=== PATIENT | male | born 1935 | race Two or more races ===

== ENCOUNTER 2021-09-17 10:05 | Inpatient (IN) | payer MEDICARE, BC ==
--- NOTE | 2021-09-17 10:27 | ED ---
General Adult HPI - General Chief complaint: Dizziness Stated complaint: palpitations Time Seen by Provider: 09/17/21 10:09 Source: patient, EMS Mode of arrival: EMS Limitations: no limitations - History of Present Illness Initial comments: Dictation was produced using [employer] dictation software. please excuse any grammatical, word or spelling errors. Chief Complaint: 86-year-old male with no significant comorbidities presents to emergency department for abnormal EKG History of Present Illness: She is an 86-year-old male he was at the [facility] urgent care where he was evaluated for one day of dizziness. Patient had an EKG performed that showed potential heart block. He was bradycardic. He was sent here via EMS. Patient has past medical history of hypertension. He takes spironolactone. Patient presents here with his son. Son reports that today he got up and was reaching overhead for something when all of a sudden he became very dizzy. Denies any fall. Perhaps she was presyncopal. He went to the urgent care where he was found have a heart rate in the 30s. Patient denies any dizziness at the bedside. The ROS documented in this emergency department record has been reviewed and confirmed by me. Those systems with pertinent positive or negative responses have been documented in the HPI. All other systems are other negative and/or noncontributory. PHYSICAL EXAM: General Impression: Alert and oriented x3, not in acute distress HEENT: Normocephalic atraumatic, extra-ocular movements intact, pupils equal and reactive to light bilaterally, mucous membranes moist. Cardiovascular: Heart regular rate and rhythm Chest: Able to complete full sentences, no retractions, no tachypnea Abdomen: abdomen soft, non-tender, non-distended, no organomegaly Musculoskeletal: Pulses present and equal in all extremities, no peripheral edema Motor: no focal deficits noted Neurological: CN II-XII grossly intact, no focal motor or sensory deficits noted Skin: Intact with no visualized rashes Psych: Normal affect and mood ED course: 86-year-old male with minimal Jony's presents emergency department for bradycardia. Been dizzy since this morning. Vital signs upon arrival shows heart rate of 52, rest of vital signs within acceptable limits. EKG does not show any evidence of heart block. There does appear to be clearly discernible P waves. There does appear to be evidence of sinus arrhythmia. No signs of ischemia or infarction. EKG interpretation: Ventricular rate 62, sinus rhythm, OH interval 210, QS 98, QTC 421. No OH prolongation, no QTC prolongation, no ST or T-wave changes noted. Overall, this EKG is unremarkable Laboratory evaluation obtained found to be unremarkable. CBC, coag panel metabolic panel is unremarkable. Electrolytes are normal. Bone and is negative. Patient observed in emergency department for 1 hour 15 minutes. On the monitor patient did not have any episodes of bradycardia. Patient however would benefit from admission for further cardiac monitoring and cardiology evaluation. - Related Data Home Medications Medication Instructions Recorded Confirmed Unable To Assess [Unable to Assess] 03/21/14 03/21/14 Allergies Allergy/AdvReac Type Severity Reaction Status Date / Time No Known Allergies Allergy Verified 03/21/14 21:27 Review of Systems ROS Statement: Those systems with pertinent positive or pertinent negative responses have been documented in the HPI. ROS Other: All systems not noted in ROS Statement are negative. Past Medical History Past Medical History: Hypertension History of Any Multi-Drug Resistant Organisms: None Reported Past Surgical History: Hernia Repair Past Psychological History: No Psychological Hx Reported Past Alcohol Use History: None Reported Past Drug Use History: None Reported General Exam Limitations: no limitations Course Vital Signs 09/17/21 09/17/21 10:07 10:15 Temperature 97.5 F L Pulse Rate 52 L Respiratory 16 Rate Blood Pressure 124/83 O2 Sat by Pulse 98 Oximetry Medical Decision Making - Lab Data Result diagrams: 09/17/21 10:32 09/17/21 10:32 Lab Results 09/17/21 09/17/21 09/17/21 Range/Units 10:32 10:32 10:32 WBC 9.1 (3.8-10.6) k/uL RBC 4.04 L (4.30-5.90) m/uL Hgb 12.9 L (13.0-17.5) gm/dL Hct 38.6 L (39.0-53.0) % MCV 95.7 (80.0-100.0) fL MCH 32.0 (25.0-35.0) pg MCHC 33.4 (31.0-37.0) g/dL RDW 12.7 (11.5-15.5) % Plt Count 178 (150-450) k/uL MPV 7.6 Neutrophils % 93 % Lymphocytes % 4 % Monocytes % 3 % Eosinophils % 1 % Basophils % 0 % Neutrophils # 8.4 H (1.3-7.7) k/uL Lymphocytes # 0.3 L (1.0-4.8) k/uL Monocytes # 0.2 (0-1.0) k/uL Eosinophils # 0.1 (0-0.7) k/uL Basophils # 0.0 (0-0.2) k/uL PT 10.7 (9.0-12.0) sec INR 1.0 (<1.2) APTT 24.2 (22.0-30.0) sec Sodium 137 (137-145) mmol/L Potassium 4.5 (3.5-5.1) mmol/L Chloride 105 (98-107) mmol/L Carbon Dioxide 26 (22-30) mmol/L Anion Gap 6 mmol/L BUN 22 H (9-20) mg/dL Creatinine 1.13 (0.66-1.25) mg/dL Est GFR (CKD-EPI)AfAm 68 (>60 ml/min/1.73 sqM) Est GFR (CKD-EPI)NonAf 59 (>60 ml/min/1.73 sqM) Glucose 128 H (74-99) mg/dL Plasma Lactic Acid Shiva (0.7-2.0) mmol/L Calcium 8.7 (8.4-10.2) mg/dL Magnesium 1.9 (1.6-2.3) mg/dL Troponin I (0.000-0.034) ng/mL 09/17/21 09/17/21 Range/Units 10:32 10:32 WBC (3.8-10.6) k/uL RBC (4.30-5.90) m/uL Hgb (13.0-17.5) gm/dL Hct (39.0-53.0) % MCV (80.0-100.0) fL MCH (25.0-35.0) pg MCHC (31.0-37.0) g/dL RDW (11.5-15.5) % Plt Count (150-450) k/uL MPV Neutrophils % % Lymphocytes % % Monocytes % % Eosinophils % % Basophils % % Neutrophils # (1.3-7.7) k/uL Lymphocytes # (1.0-4.8) k/uL Monocytes # (0-1.0) k/uL Eosinophils # (0-0.7) k/uL Basophils # (0-0.2) k/uL PT (9.0-12.0) sec INR (<1.2) APTT (22.0-30.0) sec Sodium (137-145) mmol/L Potassium (3.5-5.1) mmol/L Chloride (98-107) mmol/L Carbon Dioxide (22-30) mmol/L Anion Gap mmol/L BUN (9-20) mg/dL Creatinine (0.66-1.25) mg/dL Est GFR (CKD-EPI)AfAm (>60 ml/min/1.73 sqM) Est GFR (CKD-EPI)NonAf (>60 ml/min/1.73 sqM) Glucose (74-99) mg/dL Plasma Lactic Acid Shiva 0.8 (0.7-2.0) mmol/L Calcium (8.4-10.2) mg/dL Magnesium (1.6-2.3) mg/dL Troponin I <0.012 (0.000-0.034) ng/mL Disposition Clinical Impression: Dysrhythmia Disposition: ADMITTED IP TO THIS [facility] Condition: Fair Referrals: Rojelio Zuniga MD [Primary Care Provider] - 1-2 days Decision Time: 11:23
[2021-09-17 10:47] LABS: Basophils % (A) 0 %; Eosinophils # (A) 0.1 k/uL (0-0.7); Eosinophils % (A) 1 %; HCT 38.6 % (39.0-53.0); HGB 12.9 gm/dL (13.0-17.5); Lymphocytes # (A) 0.3 k/uL (1.0-4.8); Lymphocytes % (A) 4 %; MCHC 33.4 g/dL (31.0-37.0); MCV 95.7 fL (80.0-100.0); Mean Platelet Volume 7.6; Monocytes # (A) 0.2 k/uL (0-1.0); Monocytes % (A) 3 %; Neutrophils # (A) 8.4 k/uL (1.3-7.7); Neutrophils % (A) 93 %; Platelet Count 178 k/uL (150-450); RBC 4.04 m/uL (4.30-5.90); RDW 12.7 % (11.5-15.5); WBC 9.1 k/uL (3.8-10.6)
[2021-09-17 10:56] LABS: Calcium 8.7 mg/dL (8.4-10.2); Magnesium 1.9 mg/dL (1.6-2.3); Potassium 4.5 mmol/L (3.5-5.1)
[2021-09-17 11:02] LABS: Partial Thromboplastin Time 24.2 sec (22.0-30.0); Prothrombin Time 10.7 sec (9.0-12.0)
--- NOTE | 2021-09-17 14:00 | P.HPIM ---
History of Present Illness This is a pleasant 86 years old male with past medical history of hypertension, not on medication. Patient presents because of dizziness started this morning without syncope or fall. Patient states that 4:00 in the morning he started feeling dizzy associated with sweating, dizziness and some headache and lightheadedness he denies chest pain or dyspnea No syncope, no change in urine or bowel habits, no dysuria. Also he fell on his right arm was some abrasion about 2 days ago. No evidence of cellulitis. Patient went to urgent care where his heart rate was down to 70s and was sent to the emergency room Currently heart rate is 52-62, rest of vitals are stable. He denies smoking, alcohol or illicit drugs Labs including CBC, INR, BMP, liver enzymes and troponin are unremarkable. EKG showing sinus rhythm at 62 with PVCs Patient was admitted with cardiology consultation Review of Systems CONSTITUTIONAL: No fever, no malaise, no fatigue. HEENT: No recent visual problems or hearing problems. Denied any sore throat. CARDIOVASCULAR: No orthopnea, PND, no palpitations, no syncope. PULMONARY: No shortness of breath, no cough, no hemoptysis. GASTROINTESTINAL: No diarrhea, no nausea, no vomiting, no abdominal pain. Normoactive bowel sounds. NEUROLOGICAL: No headaches, no weakness, no numbness. HEMATOLOGICAL: Denies any bleeding or petechiae. GENITOURINARY: Denies any burning micturition, frequency, or urgency. MUSCULOSKELETAL/RHEUMATOLOGICAL: Denies any joint pain, swelling, or any muscle pain. ENDOCRINE: Denies any polyuria or polydipsia. Past Medical History Past Medical History: Hypertension History of Any Multi-Drug Resistant Organisms: None Reported Past Surgical History: Hernia Repair Past Psychological History: No Psychological Hx Reported Past Alcohol Use History: None Reported Past Drug Use History: None Reported Medications and Allergies Home Medications Medication Instructions Recorded Confirmed Type Cephalexin [Keflex] 250 mg PO Q8HR 09/17/21 09/17/21 History Mupirocin 2% Oint [Bactroban 2% 1 applic TOPICAL BID 09/17/21 09/17/21 History Oint] Spironolactone 12.5 mg PO DAILY 09/17/21 09/17/21 History Allergies Allergy/AdvReac Type Severity Reaction Status Date / Time No Known Allergies Allergy Verified 09/17/21 12:50 Physical Exam Vitals: Vital Signs Temp Pulse Resp BP Pulse Ox 09/17/21 11:14 62 16 151/78 98 09/17/21 10:15 124/83 09/17/21 10:07 97.5 F L 52 L 16 98 Intake and Output 09/16/21 09/17/21 09/17/21 22:59 06:59 14:59 Other: Weight 63.503 kg GENERAL: The patient is alert and oriented x3, not in any acute distress. Well developed, well nourished. HEENT: Pupils are round and equally reacting to light. EOMI. No scleral icterus. No conjunctival pallor. Normocephalic, atraumatic. No pharyngeal erythema. No thyromegaly. CARDIOVASCULAR: S1 and S2 present. No murmurs, rubs, or gallops. PULMONARY: Chest is clear to auscultation, no wheezing or crackles. ABDOMEN: Soft, nontender, nondistended, normoactive bowel sounds. No palpable organomegaly. MUSCULOSKELETAL: No joint swelling or deformity. -EXTREMITIES: No cyanosis, clubbing, or pedal edema. Small abrasion of the right arm with surrounding goes. No evidence of cellulitis, no swelling or te nderness or warmth NEUROLOGICAL: Gross neurological examination did not reveal any focal deficits. SKIN: No rashes. No petechiae Results CBC & Chem 7: 09/17/21 10:32 09/17/21 10:32 Labs: Abnormal Lab Results - Last 24 Hours (Table) 09/17/21 09/17/21 Range/Units 10:32 10:32 RBC 4.04 L (4.30-5.90) m/uL Hgb 12.9 L (13.0-17.5) gm/dL Hct 38.6 L (39.0-53.0) % Neutrophils # 8.4 H (1.3-7.7) k/uL Lymphocytes # 0.3 L (1.0-4.8) k/uL BUN 22 H (9-20) mg/dL Glucose 128 H (74-99) mg/dL Assessment and Plan Assessment: Symptomatic bradycardia, sinus bradycardia Fall a few days ago with right forearm abrasion History of hypertension Plan: This is a pleasant 86 years old male who presents with dizziness and bradycardia Continue telemetry monitoring Check TSH and electrolytes Cardiology consult Echocardiogram DVT prophylaxis: Subcutaneous heparin GI Prophylaxis: Pepcid
[2021-09-17] MEDS: SPIRONOLACTONE 25 MG TAB PO SCH (15:42)
--- NOTE | 2021-09-17 15:42 | CA ---
Transthoracic Echo Report Name: Rojelio Dalton Age: 86 Gender: M : 1935 Exam Date: 09/17/2021 11:48 Exam Location: [facility] Ht (in): 68 Wt (lb): 140 Ordering Physician: Jeffy Tabares MD Attending/Referring Phys: Roll Over Press Operator Sridevi Valverde RDCS Procedure CPT: Indications: Rule out heart disease Cardiac Hx: Technical Quality: Good Contrast 1: Total Dose (mL): Contrast 2: Total Dose (mL): MEASUREMENTS (Male / Female) Normal Values 2D ECHO LV Diastolic Diameter PLAX 5.1 cm 4.2 - 5.9 / 3.9 - 5.3 cm LV Systolic Diameter PLAX 2.3 cm IVS Diastolic Thickness 0.9 cm 0.6 - 1.0 / 0.6 - 0.9 cm LVPW Diastolic Thickness 0.7 cm 0.6 - 1.0 / 0.6 - 0.9 cm LV Relative Wall Thickness 0.3 LA Volume 54.9 cm??? 18 - 58 / 22 - 52 cm??? M-MODE Aortic Root Diameter MM 3.6 cm LA Systolic Diameter MM 3.0 cm LA Ao Ratio MM 0.8 MV E Point Septal Separation 2.7 cm AV Cusp Separation MM 1.7 cm DOPPLER AV Peak Velocity 122.9 cm/s AV Peak Gradient 6.0 mmHg AI Peak Velocity 333.4 cm/s AI Peak Gradient 44.5 mmHg AI Pressure Half Time 1268.9 ms MV Area PHT 3.8 cm??? MR Peak Velocity 410.0 cm/s MR Peak Gradient 67.2 mmHg Mitral E Point Velocity 66.9 cm/s Mitral A Point Velocity 42.1 cm/s Mitral E to A Ratio 1.6 MV Deceleration Time 200.5 ms MV E' Velocity 6.9 cm/s Mitral E to MV E' Ratio 9.7 TR Peak Velocity 155.1 cm/s TR Peak Gradient 9.6 mmHg Right Ventricular Systolic Press 14.6 mmHg FINDINGS Left Ventricle Normal Left ventricular size, wall thickness, systolic function with no obvious regional wall motion abnormalities. Normal Left ventricular diastolic filling pattern. Left ventricular ejection fraction is estimated at 50-55_%. Arrythmia noted. Right Ventricle The right ventricle is normal in size and function. Right Atrium The right atrium is normal in size. Left Atrium The left atrium is normal in size. Mitral Valve Structurally normal mitral valve without significant stenosis or prolapse. There is mild mitral regurgitation. Mitral valve thickened. Aortic Valve Structurally normal aortic valve without significant sclerosis or stenosis. There is no aortic regurgitation. Tricuspid Valve Structurally normal tricuspid valve without significant stenosis. Pulmonary artery systolic pressure is normal. Mild tricuspid regurgitation. Pulmonic Valve Structurally normal pulmonic valve without significant stenosis. There is no pulmonic regurgitation. Pericardium Normal pericardium without effusion. Aorta Normal aortic root dimension. CONCLUSIONS #1. Normal left ventricular size, thickness and function. Ejection fraction about 55%. #2. Mild mitral and tricuspid regurgitation Previewed by: Dr. Leoncio Nicole MD (Electronically Signed) Final Date: 17 September 2021 15:41
[2021-09-17] MEDS: SODIUM CHLORIDE 0.9% 1,000 ML IV SCH (15:43)
[2021-09-17] MEDS: FAMOTIDINE 20 MG/2 ML VIAL IV SCH (21:00)
[2021-09-17] MEDS: BACITRACIN OINT 1 EACH PACKET TOPICAL SCH (21:01)
[2021-09-17] MEDS: HEPARIN SODIUM,PORCINE/PF 5,000 UNIT/0.5 ML SYRINGE SQ SCH (21:01)
[2021-09-18 05:41] LABS: Appearance,Urine Clear (Clear); Bilirubin,Urine Negative (Negative); Blood,Urine Small (Negative); Color,Urine Yellow; Glucose,Urine (UA) Negative (Negative); Hyaline Casts,Urine 1 /lpf (0-2); Ketones,Urine Negative (Negative); Leukocyte Esterase,Urine Negative (Negative); Nitrite,Urine Negative (Negative); Protein,Urine Negative (Negative); RBC,Urine 40 /hpf (0-5); Specific Gravity,Urine 1.012 (1.001-1.035); Urobilinogen,Urine <2.0 mg/dL (<2.0); WBC,Urine 1 /hpf (0-5)
[2021-09-18] MEDS: SPIRONOLACTONE 25 MG TAB PO SCH (08:22)
[2021-09-18] MEDS: FAMOTIDINE 20 MG/2 ML VIAL IV SCH (08:22)
[2021-09-18] MEDS: HEPARIN SODIUM,PORCINE/PF 5,000 UNIT/0.5 ML SYRINGE SQ SCH (08:23)
[2021-09-18] MEDS: BACITRACIN OINT 1 EACH PACKET TOPICAL SCH ×2 (08:23→20:22)
[2021-09-18] MEDS ORDERED: HEPARIN SODIUM 1,000 UN/ML (10ML VL) IV PRN (08:29)
[2021-09-18] MEDS ORDERED: HEPARIN SODIUM 1,000 UN/ML (10ML VL) IV ONE (08:29)
[2021-09-18] MEDS ORDERED: DILTIAZEM DRIP BOLUS FROM BAG 1 MG SOLN IV ONE (08:31)
--- NOTE | 2021-09-18 08:51 | P.CRDCN ---
History of Present Illness Consult date: 09/18/21 History of present illness: This is a 86-year-old gentleman with history of hypertension, was taken to the urgent care center by his son because of symptoms of dizziness. Apparently around 3:00 or 4:00 patient woke up and tried to reach for something who is had and became very dizzy. No complaints of any chest pain or shortness of breath. In the urgent care center. It was felt that patient was bradycardic and having some heart block. We don't have any paperwork to document it. Patient was brought into the emergency room where his EKG showed a sinus rhythm with frequent PVCs. Heart rate in the 50s and 60s. Patient seemed very agitated and confused. He is a frail and thin-looking with some erythema and ulceration of the feet. Doesn't appear to be in acute distress. In fact, patient went into atrial fibrillation this morning with heart rate in the 120s. We'll going to start him on IV Cardizem drip with 5 mg bolus and 5 mg drip. Get an echocardiogram and thyroid function studies. Initiate anticoagulation, heparin. Continue to watch for any Sigmund bradyarrhythmias. Further recommendations depend upon the clinical course. Patient will be a good candidate for any pacemaker insertion because of ulceration on the leg and possible infection Review of Systems As per the chart Past Medical History Past Medical History: Hypertension History of Any Multi-Drug Resistant Organisms: None Reported Past Surgical History: Hernia Repair Additional Past Surgical History / Comment(s): bilateral cataract surgery Past Anesthesia/Blood Transfusion Reactions: No Reported Reaction Past Psychological History: No Psychological Hx Reported Smoking Status: Former smoker Past Alcohol Use History: None Reported Past Drug Use History: None Reported Medications and Allergies Home Medications Medication Instructions Recorded Confirmed Type Cephalexin [Keflex] 250 mg PO Q8HR 09/17/21 09/17/21 History Mupirocin 2% Oint [Bactroban 2% 1 applic TOPICAL BID 09/17/21 09/17/21 History Oint] Spironolactone 12.5 mg PO DAILY 09/17/21 09/17/21 History Allergies Allergy/AdvReac Type Severity Reaction Status Date / Time No Known Allergies Allergy Verified 09/17/21 12:50 Physical Exam Vitals: Vital Signs Temp Pulse Pulse Resp BP BP Pulse Ox 09/18/21 04:00 97.5 F L 68 17 162/73 96 09/18/21 02:00 72 18 09/17/21 23:07 97.9 F 72 18 172/74 96 09/17/21 20:00 66 17 165/74 99 09/17/21 16:30 68 18 156/70 99 09/17/21 12:38 97.9 F 64 18 166/77 98 09/17/21 11:14 62 16 151/78 98 09/17/21 10:15 124/83 09/17/21 10:07 97.5 F L 52 L 16 98 Intake and Output 09/17/21 09/18/21 09/18/21 22:59 06:59 14:59 Intake Total 540 320 Output Total 5200 Balance 540 -4880 Intake: Intake, IV Titration 80 Amount Sodium Chloride 0.9% 1, 80 000 ml @ 20 mls/hr IV . Q24H MONTEZ Rx#:[id number] Oral 540 240 Output: Urine 5200 Straight 2600 Other: Voiding Method Toilet Toilet # Voids 2 2 GENERAL EXAM: Patient is alert and agitated and confused. HEENT: Normocephalic. N NECK: No masses, no nuchal rigidity. CHEST: No chest wall deformity. LUNGS: Equal air entry with no crackles or wheeze. HEART: S1 and S2 irregular and fast heart sounds ABDOMEN: No hepatosplenomegaly, normal bowel sounds, no guarding or rigidity. SKIN: No rashes CENTRAL NERVOUS SYSTEM: No focal deficits. EXTREMITIES: Areas of irritation and excoriation and cellulitis Results 09/17/21 10:32 09/17/21 10:32 Cardiac Enzymes 09/17/21 Range/Units 10:32 Troponin I <0.012 (0.000-0.034) ng/mL Coagulation 09/17/21 Range/Units 10:32 PT 10.7 (9.0-12.0) sec APTT 24.2 (22.0-30.0) sec CBC 09/17/21 Range/Units 10:32 WBC 9.1 (3.8-10.6) k/uL RBC 4.04 L (4.30-5.90) m/uL Hgb 12.9 L (13.0-17.5) gm/dL Hct 38.6 L (39.0-53.0) % Plt Count 178 (150-450) k/uL Comprehensive Metabolic Panel 09/17/21 Range/Units 10:32 Sodium 137 (137-145) mmol/L Potassium 4.5 (3.5-5.1) mmol/L Chloride 105 (98-107) mmol/L Carbon Dioxide 26 (22-30) mmol/L BUN 22 H (9-20) mg/dL Creatinine 1.13 (0.66-1.25) mg/dL Glucose 128 H (74-99) mg/dL Calcium 8.7 (8.4-10.2) mg/dL Current Medications Generic Name Dose Route Start Last Admin Trade Name Freq PRN Reason Stop Dose Admin Bacitracin 1 each 09/17/21 21:00 09/18/21 08:23 Bacitracin Oint 1 Each Packet TOPICAL 09/20/21 21:01 1 each BID MONTEZ Administration Protocol Famotidine 20 mg 09/17/21 21:00 09/18/21 08:22 Famotidine 20 Mg/2 Ml Vial IV 20 mg Q12HR MONTEZ Administration Heparin Sodium (Porcine) 0 unit 09/18/21 08:29 Heparin Sodium 1,000 Un/Ml (10ml Vl) IV PER PROTOCOL PRN Low PTT Protocol Sodium Chloride 1,000 mls @ 20 mls/hr 09/17/21 11:30 09/17/21 15:43 Saline 0.9% IV 20 mls/hr .Q24H MONTEZ Administration Heparin Sodium/Sodium Chloride 250 mls @ 7.62 mls/hr 09/18/21 08:30 25,000 unit/ Sodium Chloride IV .Q24H MONTEZ Protocol 12 UNITS/KG/HR Diltiazem HCl 125 mg/ Sodium 125 mls @ 5 mls/hr 09/18/21 08:45 Chloride IV .Q24H MONTEZ 5 MG/HR Naloxone HCl 0.2 mg 09/17/21 11:20 Naloxone 0.4 Mg/Ml 1 Ml Vial IV Q2M PRN Opioid Reversal Spironolactone 12.5 mg 09/17/21 14:15 09/18/21 08:22 Spironolactone 25 Mg Tab PO 12.5 mg DAILY MONTEZ Administration Intake and Output 09/17/21 09/18/21 09/18/21 22:59 06:59 14:59 Intake Total 540 320 Output Total 5200 Balance 540 -6540 Intake: Intake, IV Titration 80 Amount Sodium Chloride 0.9% 1, 80 000 ml @ 20 mls/hr IV . Q24H MONTEZ Rx#:[id number] Oral 540 240 Output: Urine 5200 Straight 2600 Other: Voiding Method Toilet Toilet # Voids 2 2 09/17/21 10:32 09/17/21 10:32 EKG Interpretations (text) Sinus rhythm with frequent PVCs Assessment and Plan (1) Dysrhythmia Current Visit: Yes Status: Acute Code(s): I49.9 - CARDIAC ARRHYTHMIA, UNSPECIFIED SNOMED Code(s): 104315511 (2) Atrial fibrillation with RVR Current Visit: Yes Status: Acute Code(s): I48.91 - UNSPECIFIED ATRIAL FIBRILLATION SNOMED Code(s): 566446531376965 (3) Frequent PVCs Current Visit: Yes Status: Acute Code(s): I49.3 - VENTRICULAR PREMATURE DEPOLARIZATION SNOMED Code(s): 35231096 (4) Essential hypertension Current Visit: Yes Status: Acute Code(s): I10 - ESSENTIAL (PRIMARY) HYPERTENSION SNOMED Code(s): 88514717 Plan: Start patient on IV Cardizem bolus and drip at 5 mg. Continue to monitor for any bradyarrhythmias. Thyroid function studies. Echocardiogram. Further recommendations depend upon the clinical course
[2021-09-18] MEDS: HEPARIN SOD,PORK IN 0.45% NACL 25,000 UNIT in 0.45% NACL 1 250ML.BAG IV SCH (09:53)
[2021-09-18] MEDS: DILTIAZEM 125 MG in SODIUM CHLORIDE 0.9% 100 ML IV SCH (10:07)
[2021-09-18 10:49] LABS: Basophils % (A) 0 %; Eosinophils % (A) 0 %; HCT 41.6 % (39.0-53.0); HGB 13.5 gm/dL (13.0-17.5); Lymphocytes # (A) 0.5 k/uL (1.0-4.8); Lymphocytes % (A) 4 %; MCHC 32.4 g/dL (31.0-37.0); MCV 95.6 fL (80.0-100.0); Mean Platelet Volume 7.6; Monocytes # (A) 0.8 k/uL (0-1.0); Monocytes % (A) 5 %; Neutrophils # (A) 13.3 k/uL (1.3-7.7); Neutrophils % (A) 90 %; Platelet Count 217 k/uL (150-450); RBC 4.35 m/uL (4.30-5.90); RDW 12.8 % (11.5-15.5); WBC 14.7 k/uL (3.8-10.6)
[2021-09-18 11:06] LABS: INR 1.1 (<1.2); Prothrombin Time 11.7 sec (9.0-12.0)
[2021-09-18] MEDS ORDERED: QUEtiapine 25 MG TAB PO PRN (11:10)
[2021-09-18] MEDS ORDERED: QUEtiapine 25 MG TAB PO STA (11:10)
[2021-09-18 11:14] LABS: Partial Thromboplastin Time >200.0 sec (22.0-30.0)
[2021-09-18] MEDS: HALOPERIDOL LACTATE 5 MG/ML 1 ML VIAL IVP PRN ×2 (13:47→20:20)
--- NOTE | 2021-09-18 20:17 | P.PN ---
Subjective This is a pleasant 86 years old male with past medical history of hypertension, not on medication. Patient presents because of dizziness started this morning without syncope or fall. Patient states that 4:00 in the morning he started feeling dizzy associated with sweating, dizziness and some headache and lightheadedness he denies chest pain or dyspnea No syncope, no change in urine or bowel habits, no dysuria. Also he fell on his right arm was some abrasion about 2 days ago. No evidence of cellulitis. Patient went to urgent care where his heart rate was down to 70s and was sent to the emergency room Currently heart rate is 52-62, rest of vitals are stable. He denies smoking, alcohol or illicit drugs Labs including CBC, INR, BMP, liver enzymes and troponin are unremarkable. EKG showing sinus rhythm at 62 with PVCs Patient was admitted with cardiology consultation 09/18/2021 Patient today was more confused and needed to be closely monitored, at first we given Seroquel but that did not, hum down so we have to give him Haldol when necessary, patient feels better. Because his heart rate was abnormal, bradycardia on admission. On developed A. fib and RVR cardiology starting him on heparin and Cardizem drip. Also he has evidence of cellulitis on his abrasions on both right forearm and right leg and patient was started on cefazolin Because of his agitation and confusion her CT of the brain which is pending now, could not be done earlier because of his agitation. His other labs are reviewed and he has leukocytosis of 14.7, rest of vitals looks stable and patient is afebrile. TSH a 3.3. Urinalysis is negative. Echocardiogram showed ejection fraction of 50-55%. Objective - Vital Signs Vital signs: Vital Signs Temp 98.5 F 09/18/21 16:00 Pulse 57 L 09/18/21 16:00 Resp 16 09/18/21 16:00 BP 158/73 09/18/21 16:00 Pulse Ox 100 09/18/21 16:00 FiO2 Intake & Output 09/18/21 09/18/21 09/19/21 06:59 18:59 06:59 Intake Total 320 535.499 Output Total 5200 2700 Balance -4880 -2164.501 Intake: Intake, IV Titration 80 55.499 Amount Heparin Sod,Pork in 0.45% 55.499 NaCl 25,000 unit In 0.45 % NaCl 1 250ml.bag @ 12 UNITS/KG/HR 7.62 mls/hr IV .Q24H [facility] Rx#: [id number] Sodium Chloride 0.9% 1, 80 000 ml @ 20 mls/hr IV . Q24H [facility] Rx#:[id number] Oral 240 480 Output: Urine 5200 2700 Straight 2600 Other: Voiding Method Toilet Indwelling Catheter # Voids 2 - Exam -GENERAL: The patient is awake but confused, follow commands x3, not in any acute distress. Well developed, well nourished. HEENT: Pupils are round and equally reacting to light. EOMI. No scleral icterus. No conjunctival pallor. Normocephalic, atraumatic. No pharyngeal erythema. No t hyromegaly. CARDIOVASCULAR: S1 and S2 present. No murmurs, rubs, or gallops. PULMONARY: Chest is clear to auscultation, no wheezing or crackles. ABDOMEN: Soft, nontender, nondistended, normoactive bowel sounds. No palpable organomegaly. MUSCULOSKELETAL: No joint swelling or deformity. -EXTREMITIES: No cyanosis, clubbing, or pedal edema. Right forearm and right leg abrasions with cellulitis NEUROLOGICAL: Gross neurological examination did not reveal any focal deficits. SKIN: No rashes. no petechiae. - Labs CBC & Chem 7: 09/18/21 10:20 09/17/21 10:32 Labs: Abnormal Lab Results - Last 24 Hours (Table) 09/18/21 09/18/21 09/18/21 Range/Units 04:30 10:20 10:20 WBC 14.7 H (3.8-10.6) k/uL Neutrophils # 13.3 H (1.3-7.7) k/uL Lymphocytes # 0.5 L (1.0-4.8) k/uL APTT >200.0 H* (22.0-30.0) sec Urine Blood Small H (Negative) Urine RBC 40 H (0-5) /hpf 09/18/21 Range/Units 15:58 WBC (3.8-10.6) k/uL Neutrophils # (1.3-7.7) k/uL Lymphocytes # (1.0-4.8) k/uL APTT 81.0 H (22.0-30.0) sec Urine Blood (Negative) Urine RBC (0-5) /hpf Assessment and Plan Assessment: A. fib with RVR Symptomatic bradycardia, sinus bradycardia right forearm and leg cellulitis Confusion most likely metabolic/toxic encephalopathy. Rule out intracranial lesion Fall a few days ago with right forearm abrasion History of hypertension Plan: This is a pleasant 86 years old male who presents with dizziness and bradycardia Continue telemetry monitoring Continue with heparin drip and Cardizem drip. Blockers [facility] Cardiology consult Start cefazolin and ordered wound culture Haldol when necessary for agitation DVT prophylaxis: heparin GI Prophylaxis: Pepcid Discussed with the daytime shift to increase the dose of Haldol if it doesn't work. During the evening bedside nurse patient still agitated so I instructed to increase the dose of Haldol to 1 mg as needed, and once patient is, we can send him for CAT scan of the brain. Also to do wound t culture Prognosis is guarded
[2021-09-18] MEDS: TAMSULOSIN 0.4 MG CAP.ER.24H PO SCH (20:32)
[2021-09-18] MEDS: SODIUM CHLORIDE 0.9% 1,000 ML IV SCH (20:33)
[2021-09-18] MEDS ORDERED: HALOPERIDOL LACTATE 5 MG/ML 1 ML VIAL IVP ONE (21:00)
[2021-09-19] MEDS ORDERED: HALOPERIDOL LACTATE 5 MG/ML 1 ML VIAL IVP PRN (01:17)
[2021-09-19] MEDS: HALOPERIDOL LACTATE 5 MG/ML 1 ML VIAL IVP PRN (01:23)
[2021-09-19] MEDS ORDERED: LORazepam 2 MG/ML INJ IV ONE (05:57)
[2021-09-19 06:13] LABS: Basophils % (A) 0 %; Eosinophils # (A) 0.1 k/uL (0-0.7); Eosinophils % (A) 1 %; HCT 37.8 % (39.0-53.0); HGB 12.8 gm/dL (13.0-17.5); Lymphocytes # (A) 0.5 k/uL (1.0-4.8); Lymphocytes % (A) 4 %; MCH 32.1 pg (25.0-35.0); MCHC 33.9 g/dL (31.0-37.0); MCV 94.9 fL (80.0-100.0); Mean Platelet Volume 7.3; Monocytes # (A) 0.6 k/uL (0-1.0); Monocytes % (A) 5 %; Neutrophils # (A) 9.4 k/uL (1.3-7.7); Neutrophils % (A) 87 %; Platelet Count 173 k/uL (150-450); RBC 3.99 m/uL (4.30-5.90); RDW 12.9 % (11.5-15.5); WBC 10.7 k/uL (3.8-10.6)
[2021-09-19 06:23] LABS: Partial Thromboplastin Time 39.4 sec (22.0-30.0); Prothrombin Time 11.2 sec (9.0-12.0)
[2021-09-19 06:39] LABS: Calcium 8.3 mg/dL (8.4-10.2); Magnesium 1.6 mg/dL (1.6-2.3); Potassium 4.2 mmol/L (3.5-5.1)
[2021-09-19] MEDS: SODIUM CHLORIDE 0.9% 1,000 ML IV SCH ×3 (09:09→16:14)
[2021-09-19] MEDS: DILTIAZEM 125 MG in SODIUM CHLORIDE 0.9% 100 ML IV SCH (10:10)
[2021-09-19] MEDS: HEPARIN SOD,PORK IN 0.45% NACL 25,000 UNIT in 0.45% NACL 1 250ML.BAG IV SCH (10:10)
[2021-09-19] MEDS: BACITRACIN OINT 1 EACH PACKET TOPICAL SCH (10:11)
[2021-09-19] MEDS: SPIRONOLACTONE 25 MG TAB PO SCH (10:11)
[2021-09-19] MEDS: FAMOTIDINE 20 MG TAB PO SCH (10:11)
--- NOTE | 2021-09-19 10:59 | US ---
EXAMINATION TYPE: US carotid duplex BILAT DATE OF EXAM: 09/19/2021 COMPARISON: NONE CLINICAL HISTORY: confusion. confusion EXAM MEASUREMENTS: RIGHT: Peak Systolic Velocity (PSV) cm/sec ----- Right CCA: 75.7 ----- Right ICA: 102.1 ----- Right ECA: 139.8 ICA/CCA ratio: 1.3 RIGHT: End Diastole cm/sec ----- Right CCA: 8.7 ----- Right ICA: 14.1 ----- Right ECA: 9.7 LEFT: Peak Systolic Velocity (PSV) cm/sec ----- Left CCA: 94.4 ----- Left ICA: 71.3 ----- Left ECA: 157.4 ICA/CCA ratio: 0.8 LEFT: End Diastole cm/sec ----- Left CCA: 12.9 ----- Left ICA: 13.1 ----- Left ECA: 7.7 VERTEBRALS (direction of flow): Right Vertebral: Antegrade Left Vertebral: Antegrade Rhythm: Arrhythmia Moderate plaque bilateral bifurcations. Increased velocities bilateral ECA's IMPRESSION: 1. Atheromatous plaquing without significant flow-limiting stenosis internal carotid arteries based o n velocities. 2. There may be some moderate stenosis of the external carotid arteries Criteria for Assigning % of Stenosis / Diameter reduction (Estimation based on the indirect measurements of the internal carotid artery velocities (ICA PSV). 1. Normal (no stenosis)=ICA PSV < 125 cm/s: ratio < 2.0: ICA EDV<40 cm/s. 2. Less than 50% stenosis=ICA PSV < 125 cm/s: ratio < 2.0: ICA EDV<40 cm/s. 3. 50 to 69% stenosis=ICA PSV of 125 to 230 cm/s: ration 2.0 ? 4.0: ICA EDV 40-100 cm/s. 4. Greater than 70% stenosis to near occlusion= ICA PSV > 230 cm/s: ratio > 4.0: ICA EDV > 100 cm/s. 5. Near occlusion= ICA PSV velocities may be low or undetectable: variable ratio and ICA EDV. 6. Total occlusion=unable to detect flow.
--- NOTE | 2021-09-19 12:08 | CT ---
EXAMINATION TYPE: CT brain wo con DATE OF EXAM: 09/19/2021 COMPARISON: None available HISTORY: confusion CT DLP: 1217.4 mGycm Automated exposure control for dose reduction was used. TECHNIQUE: CT scan of the brain is performed without IV contrast administration. FINDINGS: Suboptimal CT scan with artifactual images. Brain volume loss changes, likely age-related. Bilateral cerebral white matter hypodensities, likely representing chronic microvascular ischemic changes. Scattered arterial atherosclerotic calcification s. No acute intracranial hemorrhage. No gross acute cortical infarct. No midline shift or herniation. Un remarkable basal cisterns, sella and CP angles. No gross space-occupying lesion, vasogenic edema or m ass effect. Unremarkable orbits. Clear visualized paranasal sinuses and mastoid air cells. Unremarkable calvarial bones. Deviated bony nasal septum convex to the right side. IMPRESSION: No acute intracranial abnormality or gross space-occupying lesion by this nonenhanced CT scan. Chroni c findings as described above.
--- NOTE | 2021-09-19 12:52 | P.PN ---
Subjective Progress Note Date: 09/19/21 HISTORY OF PRESENT ILLNESS This is a pleasant 86 years old male with past medical history of hypertension, not on medication. Patient presents because of dizziness started this morning without syncope or fa ll. Patient states that 4:00 in the morning he started feeling dizzy associated with sweating, dizziness and some headache and lightheadedness he denies chest pain or dyspnea No syncope, no change in urine or bowel habits, no dysuria. Also he fell on his right arm was some abrasion about 2 days ago. No evidence of cellulitis. Patient went to urgent care where his heart rate was down to 70s and was sent to the emergency room Currently heart rate is 52-62, rest of vitals are stable. He denies smoking, alcohol or illicit drugs Labs including CBC, INR, BMP, liver enzymes and troponin are unremarkable. EKG showing sinus rhythm at 62 with PVCs Patient was admitted with cardiology consultation 09/18/2021 Patient today was more confused and needed to be closely monitored, at first we given Seroquel but that did not, hum down so we have to give him Haldol when necessary, patient feels better. Because his heart rate was abnormal, bradycardia on admission. On developed A. fib and RVR cardiology starting him on heparin and Cardizem drip. Also he has evidence of cellulitis on his abrasions on both right forearm and right leg and patient was started on cefazolin Because of his agitation and confusion her CT of the brain which is pending now, could not be done earlier because of his agitation. His other labs are reviewed and he has leukocytosis of 14.7, rest of vitals looks stable and patient is afebrile. TSH a 3.3. Urinalysis is negative. Echocardiogram showed ejection fraction of 50-55%. 09/19: Patient is more confused today, family members are at bedside. He has a Marmolejo catheter for urinary retention. Heparin was placed on hold due to hematuria. He is off Cardizem drip.repeat blood work reveals WBC 10.7, hemoglobin 12.8, platelet count 173. Chloride 108, CO2 25, BUN 23 creatinine 1.2. Urinalysis revealed small amount of blood but no sign of infection. CAT scan of the brain revealed no acute intracranial abnormality or gross space- occupying lesion. Carotid ultrasound revealed plaquing without significant flow limiting stenosis internal carotid arteries. Some moderate stenosis of the external carotid arteries. REVIEW OF SYSTEMS Constitutional: No fever, no chills, no night sweats. No weight change. No weakness, fatigue or lethargy. No daytime sleepiness. EENT: No headache. No blurred vision or double vision, no loss of vision. No loss of Hearing, no ringing in the ears, no dizziness. No nasal drainage or congestion. No epistaxis. No sore throat. Lungs: No shortness of breath, cough, no sputum production. No wheezing. Cardiovascular: No chest pain, no lower extremity edema. No palpitations. No paroxysmal nocturnal dyspnea. No orthopnea. No lightheadedness or dizziness. No syncopal episodes. Abdominal: No abdominal pain. No nausea, vomiting. No diarrhea. No constipation. No bloody or tarry stools. No loss of appetite. Genitourinary: No dysuria, increased frequency, urgency. No urinary retention. Musculoskeletal: No myalgias. No muscle weakness, no gait dysfunction, no frequent falls. No back pain. No neck pain. Integumentary: No wounds, no lesions. No rash or pruritus. No unusual bruising. No change in hair or nails. Neurologic: No aphasia. No facial droop. No change in mentation. No head injury. No headache. No paralysis. No paresthesia. Psychiatric: No depression. No anxiety. No mood swings. Endocrine: No abnormal blood sugars. No weight change. No excessive sweating or thirst. No cold intolerance. PHYSICAL EXAMINATION Gen: This is a thin cachectic 86-year-old male. He is resting in bed appears to be comfortable. HEENT: Head is atraumatic, normocephalic. Pupils equal, round. Sclerae is anicteric. NECK: Supple. No JVD. No lymphadenopathy. No thyromegaly. LUNGS: Clear to auscultation. No wheezes or rhonchi. No intercostal retractions. HEART: Irregular rate and rhythm. No murmur. ABDOMEN: Soft. Bowel sounds are present. No masses. No tenderness. EXTREMITIES: No pedal edema. No calf tenderness. NEUROLOGICAL: Patient is awake, alert and oriented to person. Cranial nerves 2 through 12 are grossly intact. ASSESSMENT AND PLAN 1. A. fib with RVR. Patient is off Cardizem drip and heparin drip. Continue cardiac monitoring. Anticoagulation per cardiology. 2. Symptomatic bradycardia, sinus bradycardia. Cardiology is following. 3. Lower extremity cellulitis. Continue Kefzol. 4. Metabolic encephalopathy. CAT scan negative for intracranial abnormality. 5. History of hypertension. Continue Aldactone 12.5 mg daily 6. Remote history of tobacco use. 7. Urinary retention requiring Marmolejo catheter. Continue Flomax 0.4 mg daily. 8. GI prophylaxis. Pepcid 9. DVT prophylaxis. SCDs and MONICA hose. DISCHARGE PLAN TBD. Impression and plan of care have been directed as dictated by the signing physician. Navya Caraballo nurse practitioner acting as scribe for signing physician. Objective - Vital Signs Vital signs: Vital Signs Temp 97.5 F L 09/19/21 04:00 Pulse 74 09/19/21 04:00 Resp 20 09/19/21 04:00 BP 130/66 09/19/21 04:00 Pulse Ox 99 09/19/21 04:00 FiO2 Intake & Output 09/18/21 09/19/21 09/19/21 18:59 06:59 18:59 Intake Total 535.499 285.302 118 Output Total 2700 1650 Balance -2164.501 -1364.698 118 Intake: Intake, IV Titration 55.499 165.302 Amount Diltiazem 125 mg In 80 Sodium Chloride 0.9% 100 ml @ 5 MG/HR 5 mls/hr IV .Q24H [facility] Rx#:[id number] Heparin Sod,Pork in 0.45% 55.499 85.302 NaCl 25,000 unit In 0.45 % NaCl 1 250ml.bag @ 12 UNITS/KG/HR 7.62 mls/hr IV .Q24H [facility] Rx#: [id number] Oral 480 120 118 Output: Urine 2700 1650 Other: Voiding Method Indwelling Catheter Indwelling Catheter - Labs CBC & Chem 7: 09/19/21 05:57 09/19/21 05:57 Labs: Abnormal Lab Results - Last 24 Hours (Table) 09/18/21 09/18/21 09/18/21 Range/Units 10:20 10:20 15:58 WBC 14.7 H (3.8-10.6) k/uL RBC (4.30-5.90) m/uL Hgb (13.0-17.5) gm/dL Hct (39.0-53.0) % Neutrophils # 13.3 H (1.3-7.7) k/uL Lymphocytes # 0.5 L (1.0-4.8) k/uL APTT >200.0 H* 81.0 H (22.0-30.0) sec Chloride (98-107) mmol/L BUN (9-20) mg/dL Glucose (74-99) mg/dL Calcium (8.4-10.2) mg/dL 09/18/21 09/19/21 09/19/21 Range/Units 22:58 05:57 05:57 WBC 10.7 H (3.8-10.6) k/uL RBC 3.99 L (4.30-5.90) m/uL Hgb 12.8 L (13.0-17.5) gm/dL Hct 37.8 L (39.0-53.0) % Neutrophils # 9.4 H (1.3-7.7) k/uL Lymphocytes # 0.5 L (1.0-4.8) k/uL APTT 42.6 H 39.4 H (22.0-30.0) sec Chloride (98-107) mmol/L BUN (9-20) mg/dL Glucose (74-99) mg/dL Calcium (8.4-10.2) mg/dL 09/19/21 Range/Units 05:57 WBC (3.8-10.6) k/uL RBC (4.30-5.90) m/uL Hgb (13.0-17.5) gm/dL Hct (39.0-53.0) % Neutrophils # (1.3-7.7) k/uL Lymphocytes # (1.0-4.8) k/uL APTT (22.0-30.0) sec Chloride 108 H (98-107) mmol/L BUN 23 H (9-20) mg/dL Glucose 123 H (74-99) mg/dL Calcium 8.3 L (8.4-10.2) mg/dL
--- NOTE | 2021-09-19 12:53 | P.PN ---
Subjective This is a 86-year-old male with a past medical history of hypertension. 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 We have been asked to see in consultation for bradycardia and atrial fibrillation with RVR. Patient was taken to the urgent care center by his son because of symptoms of dizziness. Apparently around 3:00 or 4:00 patient woke up and tried to reach for something who is had and became very dizzy. In the urgent care center. It was felt that patient was bradycardic and possible heart block, We don't have any paperwork to document it. Patient was brought into the emergency room where his EKG showed a sinus rhythm with frequent PVCs. Heart rate in the 50s and 60s. Patient was very agitated and confused on admission which is new per son. Patient was then found to be in atrial fibrillation with heart rate in the 120s. He was started on IV Cardizem and IV heparin drip. Echocardiogram revealed an EF of 5055%, mild tricuspid regurgitation TSH within normal limits Troponin negative Patient is seen and examined at bedside, he is alert, oriented x 2, appears lethargic, but able to answer questions appropriately. He denies any chest pain or shortness of breath. Has no complaints this morning. His vital signs are stable. Telemetry revealed sinus rhythm, PVCs and episodes of NSVT 2-3 beat runs. No further atrial fibrillation noted. No significant pauses noted. He is on IV heparin currently. GENERAL: Frail no acute distress NECK: Supple without JVD or thyromegaly. LUNGS: Breath sounds clear to auscultation bilaterally. Respiration equal and unlabored. No wheezes, rales or rhonchi. HEART: Regular rate and rhythm without murmurs, rubs or gallops. S1 and S2 heard. EXTREMITIES: Normal range of motion, no edema. No clubbing or cyanosis. Peripheral pulses intact. ASSESSMENT Dizziness New onset paroxysmal atrial fibrillation with RVR, [id number] score 3 Hypertension Leukocytosis PLAN Start Eliquis 2.5mg BID, case management consulted for coverage Start metoprolol tartrate 25mg BID Continue to monitor on telemetry for bradycardia At this time no indication for pacemaker implantation, will continue to monitor Further recommendations based on clinical course Nurse Practitioner note has been reviewed, I agree with a documented findings and plan of care. Patient was seen and examined. Objective - Vital Signs Vital signs: Vital Signs Temp 97.9 F 06/27/22 08:00 Pulse 59 L 09/19/21 08:00 Resp 18 09/19/21 08:00 BP 137/76 09/19/21 08:00 Pulse Ox 98 09/19/21 08:00 FiO2 Intake & Output 09/18/21 09/19/21 09/19/21 18:59 06:59 18:59 Intake Total 535.499 285.302 118 Output Total 2700 1650 Balance -2164.501 -1364.698 118 Intake: Intake, IV Titration 55.499 165.302 Amount Diltiazem 125 mg In 80 Sodium Chloride 0.9% 100 ml @ 5 MG/HR 5 mls/hr IV .Q24H [facility] Rx#:[id number] Heparin Sod,Pork in 0.45% 55.499 85.302 NaCl 25,000 unit In 0.45 % NaCl 1 250ml.bag @ 12 UNITS/KG/HR 7.62 mls/hr IV .Q24H [facility] Rx#: [id number] Oral 480 120 118 Output: Urine 2700 1650 Other: Voiding Method Indwelling Catheter Indwelling Catheter Indwelling Catheter - Labs CBC & Chem 7: 09/19/21 05:57 09/19/21 05:57 Labs: Abnormal Lab Results - Last 24 Hours (Table) 09/18/21 09/18/21 09/19/21 Range/Units 15:58 22:58 05:57 WBC 10.7 H (3.8-10.6) k/uL RBC 3.99 L (4.30-5.90) m/uL Hgb 12.8 L (13.0-17.5) gm/dL Hct 37.8 L (39.0-53.0) % Neutrophils # 9.4 H (1.3-7.7) k/uL Lymphocytes # 0.5 L (1.0-4.8) k/uL APTT 81.0 H 42.6 H (22.0-30.0) sec Chloride (98-107) mmol/L BUN (9-20) mg/dL Glucose (74-99) mg/dL Calcium (8.4-10.2) mg/dL 09/19/21 09/19/21 Range/Units 05:57 05:57 WBC (3.8-10.6) k/uL RBC (4.30-5.90) m/uL Hgb (13.0-17.5) gm/dL Hct (39.0-53.0) % Neutrophils # (1.3-7.7) k/uL Lymphocytes # (1.0-4.8) k/uL APTT 39.4 H (22.0-30.0) sec Chloride 108 H (98-107) mmol/L BUN 23 H (9-20) mg/dL Glucose 123 H (74-99) mg/dL Calcium 8.3 L (8.4-10.2) mg/dL Microbiology - Last 24 Hours (Table) 09/19/21 00:24 Anaerobic Culture - Preliminary Arm - Right 09/19/21 00:24 Wound Culture - Preliminary Arm - Right
[2021-09-19] MEDS: APIXABAN 2.5 MG TABLET PO SCH ×2 (13:02→21:55)
[2021-09-19] MEDS: METOPROLOL TARTRATE 25 MG TAB PO SCH ×2 (13:03→21:36)
--- NOTE | 2021-09-19 14:12 | P.CN ---
Psychiatric Consult - . Consult date: 09/19/21 Consult:: 09/19/21 14:03 IDENTIFYING DATA: This patient is a 86-year-old male who currently is lives with his and his son in the house. Retired. REASON FOR REFERRAL: Psychiatry was consulted for delirium HISTORY OF PRESENT ILLNESS: The patient presented to the hospital on 09/17 according to ER report for an abnormal ECG. Patient apparently went to the urgent care for dizziness and was found to have his heart rate in the 30s and was referred to the hospital. Patient had routine blood work and computed tomography scan which did not show any acute changes. Urinalysis showed blood in the urine. Negative for any infection. Patient was given diazepam and also Ativan and Seroquel. Patient became more confused and psychiatry was consulted. Patient's daughter was sitting beside him today and agreeable to speak to junior copywriter. Daughter states that he has been confused and had a sharp change in his mental status since Sunday. The patient was seen fidgeting and trying to get out of his mitten restraints. He acknowledges junior copywriter however had poor attention span. He was fairly confused during conversation. He did not know where he was and believes that he was in his own home. He does know his full name. He knows his date as well. He does not know today's date and believes that it was June. He also thought that his was sitting next to him. He is denying any depression or any anxiety today. At this time patient denies any suicidal or homical ideations, intent or plan. Patient denies any auditory, visual hallucinations and denies any paranoia or delusions. Patients admits to using no recreational drugs or cigarettes PAST PSYCHIATRIC HISTORY: Patient has no known psychiatric history. Patient denies being on any psychiatric medications. Patient denies any previous psychiatric hospitalizations. Patient denies any psychiatric outpatient follow- up. Patient denies any history of suicide attempts in the past. PAST MEDICAL HISTORY: as per medicine H and P ALLERGIES: as per EMR. CHEMICAL DEPENDENCY HISTORY: as per HPI. FAMILY PSYCHIATRIC/SUBSTANCE USE HISTORY: denies SOCIAL HISTORY: Patient was born and raised in [facility]. Patient apparently completed high school. 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 He currently lives his and his son and house. MENTAL STATUS EXAM: General Appearance: Patient appears to be thin, confused, stated age is alert, attending to cooperate [place] is confused. Patient appears to have fair hygiene and grooming wearing hospital gown with poor eye contact. Behavior: Patient is calmly lying in bed without any agitated behavior. Confused and distracted. Speech: Patient's speech is fluent and nonpressured. [place] Mood/Affect: Patient reports their mood is "ok", affect is congruent Suicidality/Homicidality: Patient denies having any suicidal or homicidal ideation intent or plan. Perceptions: Patient denies any visual hallucinations and denies any auditory hallucinations Though content/process: [place], positive content. Not endorsing any delusions. Memory and concentration: AOX1, does not know today's date or location. Poor concentration. Cannot spell "world" backwards. Judgment and insight: poor IMPRESSIONS: Delirium, likely secondary to medications including benzodiazepines PLAN: -At this time patient DOES NOT meet criteria for inpatient psychiatric admiss ion. -Delirium precautions recommended with patient including - avoiding use of narcotics and SITE AUDITOR sedatives, limit anticholinergic medications when possible, frequent re-orientation, minimize use of restraints, open window shades during the day and close them at night -Would recommend the following medication changes/additions: Please avoid anticholinergics and benzodiazepines as this will worsen patient's condition. Prolixin by mouth 1 mg twice a day for delirium/confusion. Prolixin by mouth and IM when necessary or agitation. Melatonin 2 mg daily at bedtime for sleep. -Attempted to call nurse however was unable to reach him. -Will continue to follow along -Please contact with any questions. 09/19/21 14:04 09/19/21 14:10
[2021-09-19] MEDS: TAMSULOSIN 0.4 MG CAP.ER.24H PO SCH (16:18)
[2021-09-19] MEDS ORDERED: MELATONIN 1 MG TAB PO SCH (21:00)
[2021-09-19] MEDS ORDERED: METOPROLOL TARTRATE 12.5 MG TAB PO ONE (21:37)
[2021-09-20 02:49] LABS: Glucose,Whole Blood 109 mg/dL (70-110)
[2021-09-20] MEDS: BACITRACIN OINT 1 EACH PACKET TOPICAL SCH ×2 (03:09→11:58)
--- NOTE | 2021-09-20 09:00 | P.PN ---
Subjective Progress Note Date: 09/20/21 PROGRESS NOTE The patient is an 86 old male who presented with episode of bradycardia, had atrial fibrillation with slow ventricular response and episode of sinus rhythm with frequent ventricular ectopic activity. He had significant bradycardia last night. He is awake answering questions, back in sinus mechanism. He feels fatigued. His computed tomography scan of the head showed no evidence of acute abnormality. PHYSICAL EXAMINATION: Blood pressure blood pressure 108/50 with a heart rate in the 60 LUNGS: Clear to auscultation HEART: Regular rate and rhythm, S1, S2. No S3. systolic murmur at the base ABDOMEN: Soft, nontender, no organomegaly EXTREMETIES: No edema LAB: Pending IMPRESSION: 1. Tachybradycardia syndrome with significant bradycardia 2. Paroxysmal atrial fibrillation, score of 3 3. History of hypertension 4. Change in mental status PLAN: I discussed with the patient and his family the findings. In view of the persistent bradycardia I have recommended to proceed with permanent pacemaker implantation. The rationale and the risks with discussed with him. Dr. Sanchez will proceed with the implant today. In the meantime we will continue present therapy. Objective - Vital Signs Vital signs: Vital Signs Temp 97.7 F 09/20/21 00:00 Pulse 40 L 09/20/21 03:00 Resp 14 09/20/21 03:00 BP 108/52 09/20/21 03:00 Pulse Ox 97 09/20/21 03:00 FiO2 Intake & Output 09/19/21 09/20/21 09/20/21 18:59 06:59 18:59 Intake Total 118 Output Total 650 Balance 118 -650 Intake: Oral 118 Output: Urine 650 Other: Voiding Method Indwelling Catheter Indwelling Catheter - Labs CBC & Chem 7: 09/19/21 05:57 09/19/21 05:57 Labs: Microbiology - Last 24 Hours (Table) 09/19/21 00:24 Gram Stain - Preliminary Arm - Right Wound Culture - Preliminary 09/18/21 22:58 Blood Culture - Preliminary Blood No Growth after 24 hours 09/19/21 00:24 Anaerobic Culture - Preliminary Arm - Right
[2021-09-20] MEDS: APIXABAN 2.5 MG TABLET PO SCH (09:57)
[2021-09-20] MEDS: METOPROLOL TARTRATE 25 MG TAB PO SCH (09:58)
[2021-09-20] MEDS: FAMOTIDINE 20 MG TAB PO SCH (09:59)
[2021-09-20] MEDS: SPIRONOLACTONE 25 MG TAB PO SCH (10:00)
[2021-09-20 10:23] LABS: Calcium 7.9 mg/dL (8.4-10.2); Potassium 3.5 mmol/L (3.5-5.1)
[2021-09-20] MEDS: SODIUM CHLORIDE 0.9% 1,000 ML IV SCH ×3 (11:34→11:47)
--- NOTE | 2021-09-20 11:40 | P.PN ---
Subjective Progress Note Date: 09/20/21 HISTORY OF PRESENT ILLNESS This is a pleasant 86 years old male with past medical history of hypertension, not on medication. Patient presents because of dizziness started this morning without syncope or fa ll. Patient states that 4:00 in the morning he started feeling dizzy associated with sweating, dizziness and some headache and lightheadedness he denies chest pain or dyspnea No syncope, no change in urine or bowel habits, no dysuria. Also he fell on his right arm was some abrasion about 2 days ago. No evidence of cellulitis. Patient went to urgent care where his heart rate was down to 70s and was sent to the emergency room Currently heart rate is 52-62, rest of vitals are stable. He denies smoking, alcohol or illicit drugs Labs including CBC, INR, BMP, liver enzymes and troponin are unremarkable. EKG showing sinus rhythm at 62 with PVCs Patient was admitted with cardiology consultation 09/18/2021 Patient today was more confused and needed to be closely monitored, at first we given Seroquel but that did not, hum down so we have to give him Haldol when necessary, patient feels better. Because his heart rate was abnormal, bradycardia on admission. On developed A. fib and RVR cardiology starting him on heparin and Cardizem drip. Also he has evidence of cellulitis on his abrasions on both right forearm and right leg and patient was started on cefazolin Because of his agitation and confusion her CT of the brain which is pending now, could not be done earlier because of his agitation. His other labs are reviewed and he has leukocytosis of 14.7, rest of vitals looks stable and patient is afebrile. TSH a 3.3. Urinalysis is negative. Echocardiogram showed ejection fraction of 50-55%. 09/19: Patient is more confused today, family members are at bedside. He has a Marmolejo catheter for urinary retention. Heparin was placed on hold due to hematuria. He is off Cardizem drip.repeat blood work reveals WBC 10.7, hemoglobin 12.8, platelet count 173. Chloride 108, CO2 25, BUN 23 creatinine 1.2. Urinalysis revealed small amount of blood but no sign of infection. CAT scan of the brain revealed no acute intracranial abnormality or gross space- occupying lesion. Carotid ultrasound revealed plaquing without significant flow limiting stenosis internal carotid arteries. Some moderate stenosis of the external carotid arteries. 09/20: Patient has developed hematuria again overnight. He cardiology is planning for pacemaker insertion today. Family have determined patient to be full CODE STATUS. Discussed discharge planning with the family and they are agreeable to [facility] for subacute rehab which will plan for the end of this week. Order placed with social work to follow-up. Heart rate mostly running in the 40s but did dip into the 30s, blood pressure 128/53, pulse ox 96% on room air, afebrile. Repeat blood work reveals chloride 110, BUN 27 creatinine 1.1. Blood sugar 102. Patient is also been seen by psychiatry for delirium secondary to medications including benzodiazepines. Recommendations are for delirium precautions and the following medication changes: Avoid anticholinergics and benzodiazepines. Prolixin 1 mg twice a day and as needed for agitation, m elatonin 2 mg daily at bedtime for sleep. REVIEW OF SYSTEMS Constitutional: No fever, no chills, no night sweats. No weight change. No weakness, fatigue or lethargy. No daytime sleepiness. EENT: No headache. No blurred vision or double vision, no loss of vision. No loss of Hearing, no ringing in the ears, no dizziness. No nasal drainage or congestion. No epistaxis. No sore throat. Lungs: No shortness of breath, cough, no sputum production. No wheezing. Cardiovascular: No chest pain, no lower extremity edema. No palpitations. No paroxysmal nocturnal dyspnea. No orthopnea. No lightheadedness or dizziness. No syncopal episodes. Abdominal: No abdominal pain. No nausea, vomiting. No diarrhea. No constipation. No bloody or tarry stools. No loss of appetite. Genitourinary: No dysuria, increased frequency, urgency. No urinary retention. Musculoskeletal: No myalgias. No muscle weakness, no gait dysfunction, no frequent falls. No back pain. No neck pain. Integumentary: No wounds, no lesions. No rash or pruritus. No unusual bruising. No change in hair or nails. Neurologic: No aphasia. No facial droop. No change in mentation. No head injury. No headache. No paralysis. No paresthesia. Psychiatric: No depression. No anxiety. No mood swings. Endocrine: No abnormal blood sugars. No weight change. No excessive sweating or thirst. No cold intolerance. PHYSICAL EXAMINATION Gen: This is a thin cachectic 86-year-old male. He is resting in bed appears to be comfortable. HEENT: Head is atraumatic, normocephalic. Pupils equal, round. Sclerae is anict ti. NECK: Supple. No JVD. No lymphadenopathy. No thyromegaly. LUNGS: Clear to auscultation. No wheezes or rhonchi. No intercostal retractions. HEART: Irregular rate and rhythm. No murmur. ABDOMEN: Soft. Bowel sounds are present. No masses. No tenderness. EXTREMITIES: No pedal edema. No calf tenderness. NEUROLOGICAL: Patient is awake, alert and oriented to person. Cranial nerves 2 through 12 are grossly intact. ASSESSMENT AND PLAN 1. A. fib with RVR. Patient is off Cardizem drip and heparin drip. Continue cardiac monitoring. Anticoagulation per cardiology. 2. Symptomatic bradycardia, sinus bradycardia. Cardiology is following with plan for pacemaker implantation today. 3. Lower extremity cellulitis. Continue Kefzol. 4. Metabolic encephalopathy. CAT scan negative for intracranial abnormality. 5. History of hypertension. Continue Aldactone 12.5 mg daily 6. Remote history of tobacco use. 7. Urinary retention requiring Marmolejo catheter. Continue Flomax 0.4 mg daily. 8. Hematuria. Monitor CBC. 9. GI prophylaxis. Pepcid 10. DVT prophylaxis. SCDs and MONICA hose. CODE STATUS: Full code DISCHARGE PLAN [facility] on or Sunday. Impression and plan of care have been directed as dictated by the signing physician. Navya Caraballo nurse practitioner acting as scribe for signing physician. Objective - Vital Signs Vital signs: Vital Signs Temp 97.7 F 09/20/21 00:00 Pulse 40 L 09/20/21 03:00 Resp 14 09/20/21 03:00 BP 108/52 09/20/21 03:00 Pulse Ox 97 09/20/21 03:00 FiO2 Intake & Output 09/19/21 09/20/21 09/20/21 18:59 06:59 18:59 Intake Total 118 Output Total 650 Balance 118 -650 Intake: Oral 118 Output: Urine 650 Other: Voiding Method Indwelling Catheter Indwelling Catheter - Labs CBC & Chem 7: 09/19/21 05:57 09/20/21 09:26 Labs: Microbiology - Last 24 Hours (Table) 09/19/21 00:24 Gram Stain - Preliminary Arm - Right Wound Culture - Preliminary 09/18/21 22:58 Blood Culture - Preliminary Blood No Growth after 24 hours 09/19/21 00:24 Anaerobic Culture - Preliminary Arm - Right
[2021-09-20] MEDS: FAMOTIDINE 20 MG/2 ML VIAL IV SCH (11:46)
[2021-09-20] MEDS ORDERED: ceFAZolin 1 GM in SODIUM CHLORIDE 0.9% IRRIG BTL 250 ML IRRIGATION PRN (13:30)
[2021-09-20] MEDS ORDERED: IV FLUID CONTINUATION 1,000 ML IV ONE (13:39)
[2021-09-20] MEDS ORDERED: SODIUM CHLORIDE 0.9% 500 ML 500 ML IV ONE (13:39)
--- NOTE | 2021-09-20 13:40 | P.PN ---
Progress Note - Text Progress Note Date: 09/20/21 Interval History: Patient was seen today for psychiatric follow up. Patient is being seen for d irina/confusion. His family was in the room today with him. They asked several questions about the medication. They state that he is doing better today in terms of his mental clarity and is more responsive. They also state that he is more oriented and knows where he is today. Patient was seen sleeping and was awoken by bond underwriter. Patient was attending to cooperate as best as he could and was fairly appropriate. He knows that he is in [facility] continues to believe that it is June 2021. He knows his own name and he couldn't identify everyone in the room fairly well. He was answering questions fairly appropriately. He is denying any depression today on anxiety. His concentration appears to be improving. He is going in for a pacemaker today with cardiology. He states that he slept fairly last night, fair appetite is wall. At this time patient denies any suicidal or homical ideations, intent or plan. Patient denies any auditory, visual hallucinations and denies any paranoia or delusions. Patient denies any side effects from the medications and has been compliant with meds. Mental Status Exam: General Appearance: Patient appears to be thin, confused, stated age is alert, attending to cooperate is confused. Patient appears to have fair hygiene and grooming wearing hospital gown with improving eye contact. Behavior: Patient is calmly lying in bed without any agitated behavior. Less confused today. Speech: Patient's speech is fluent and nonpressured. [place] Mood/Affect: Patient reports their mood is "ok", affect is congruent Suicidality/Homicidality: Patient denies having any suicidal or homicidal ideation intent or plan. Perceptions: Patient denies any visual hallucinations and denies any auditory hallucinations Though content/process: [place], poverty of content. Not endorsing any delusions. Memory and concentration: AOX2, does not know today's date, improving concentration, able to identify people in the room. Judgment and insight: Improving IMPRESSIONS: Delirium, likely secondary to medications including benzodiazepines Plan: -At this time patient DOES NOT meet criteria for inpatient psychiatric admission. -Delirium precautions recommended with patient including - avoiding use of narcotics and DELICATESSEN MANAGER sedatives, limit anticholinergic medications when possible, frequent re-orientation, minimize use of restraints, open window shades during the day and close them at night -Would recommend the following medication changes/additions: Please avoid anticholinergics and benzodiazepines as this will worsen patient's condition. decrease Prolixin by mouth 0.5 mg twice a day for delirium/confusion. Prolixin by mouth and IM when necessary or agitation. increase Melatonin 5 mg daily at bedtime for sleep. -Will continue to follow along tomorrow. Patient will be going to [facility] for rehab upon discharge. -Please contact with any questions.
[2021-09-20] MEDS ORDERED: VANCOMYCIN 1,000 MG in SODIUM CHLORIDE 0.9% 250 ML IVPB STA (13:47)
[2021-09-20] MEDS ORDERED: IOPAMIDOL-370 100ML BTL INJ ONE (14:05)
[2021-09-20] MEDS ORDERED: LIDOCAINE 1% INJ 10MG/ML (30 ML VIAL-PF) SQ ONE (15:01)
--- NOTE | 2021-09-20 15:59 | P.EPPROC ---
- EP Procedure Note Electrophysiology Procedure Note: Diagnosis Severe bradycardia/tachycardia bradycardia syndrome, symptomatic Procedure Single-chamber pacemaker implantation under local anesthesia Details Patient was brought to the EP lab in a fasting state. Written informed consent was obtained prior to the procedure. Conscious sedation provided by anesthesia team IV antibiotics administered. Local anesthesia administered. A 4 cm incision made in the pectoral area. Subfascial pocket made. Venous access obtained Venous sheaths placed. Leads placed in the right heart RV lead position in the RV apex. Passive lead, [employer] positioned in the RV apex Pacing threshold 0.5 V at 0.5 ms, R waves 7.7 mV and pacing impedance 730 ohms [employer] single-chamber pacemaker device: Single-chamber pacemaker device connected to the leads and placed in the subfascial pocket Patient tolerated the procedure well without acute complications
[2021-09-20] MEDS ORDERED: ACETAMINOPHEN TAB 325 MG TAB PO PRN (16:00)
[2021-09-20] MEDS ORDERED: ACETAMINOPHEN IV (For NPO) 1,000 MG in EMPTY BAG 1 BAG IVPB ONE (16:00)
[2021-09-20] MEDS: TAMSULOSIN 0.4 MG CAP.ER.24H PO SCH (18:24)
[2021-09-20] MEDS ORDERED: LORazepam 2 MG/ML INJ IV STA (18:47)
[2021-09-21] MEDS: BACITRACIN OINT 1 EACH PACKET TOPICAL SCH (00:30)
[2021-09-21] MEDS: MELATONIN 5 MG TABLET PO SCH ×2 (00:30→21:33)
[2021-09-21] MEDS: METOPROLOL TARTRATE 25 MG TAB PO SCH ×3 (00:31→22:12)
[2021-09-21] MEDS: APIXABAN 2.5 MG TABLET PO SCH ×3 (00:32→19:47)
[2021-09-21] MEDS: SODIUM CHLORIDE 0.9% 1,000 ML IV SCH ×2 (02:08→23:55)
--- NOTE | 2021-09-21 08:25 | XR ---
EXAMINATION TYPE: XR chest 1V portable DATE OF EXAM: 09/21/2021 COMPARISON: 03/21/2014 INDICATION: Lead placement check TECHNIQUE: Single frontal view of the chest is obtained. FINDINGS: The heart size is normal. The pulmonary vasculature is normal. The lungs are clear. No pneumothorax is evident. There is placement of a pacemaker with the tip directed toward the cardiac apex. IMPRESSION: 1. No acute pulmonary process.
[2021-09-21] MEDS: FAMOTIDINE 20 MG/2 ML VIAL IV SCH (08:41)
[2021-09-21] MEDS: SPIRONOLACTONE 25 MG TAB PO SCH (08:42)
[2021-09-21 09:43] LABS: Basophils % (A) 1 %; Eosinophils # (A) 0.1 k/uL (0-0.7); Eosinophils % (A) 1 %; HCT 39.8 % (39.0-53.0); HGB 12.7 gm/dL (13.0-17.5); Lymphocytes # (A) 0.4 k/uL (1.0-4.8); Lymphocytes % (A) 5 %; MCH 31.4 pg (25.0-35.0); MCV 98.3 fL (80.0-100.0); Mean Platelet Volume 7.9; Monocytes # (A) 0.4 k/uL (0-1.0); Monocytes % (A) 4 %; Neutrophils % (A) 88 %; Platelet Count 183 k/uL (150-450); RBC 4.05 m/uL (4.30-5.90); RDW 12.9 % (11.5-15.5); WBC 9.1 k/uL (3.8-10.6)
[2021-09-21 09:58] LABS: Calcium 7.9 mg/dL (8.4-10.2); Potassium 4.4 mmol/L (3.5-5.1); Total Bilirubin 0.5 mg/dL (0.2-1.3); Total Protein 4.9 g/dL (6.3-8.2)
--- NOTE | 2021-09-21 11:20 | P.PN ---
Subjective Progress Note Date: 09/21/21 HISTORY OF PRESENT ILLNESS This is a pleasant 86 years old male with past medical history of hypertension, not on medication. Patient presents because of dizziness started this morning without syncope or fa ll. Patient states that 4:00 in the morning he started feeling dizzy associated with sweating, dizziness and some headache and lightheadedness he denies chest pain or dyspnea No syncope, no change in urine or bowel habits, no dysuria. Also he fell on his right arm was some abrasion about 2 days ago. No evidence of cellulitis. Patient went to urgent care where his heart rate was down to 70s and was sent to the emergency room Currently heart rate is 52-62, rest of vitals are stable. He denies smoking, alcohol or illicit drugs Labs including CBC, INR, BMP, liver enzymes and troponin are unremarkable. EKG showing sinus rhythm at 62 with PVCs Patient was admitted with cardiology consultation 09/18/2021 Patient today was more confused and needed to be closely monitored, at first we given Seroquel but that did not, hum down so we have to give him Haldol when necessary, patient feels better. Because his heart rate was abnormal, bradycardia on admission. On developed A. fib and RVR cardiology starting him on heparin and Cardizem drip. Also he has evidence of cellulitis on his abrasions on both right forearm and right leg and patient was started on cefazolin Because of his agitation and confusion her CT of the brain which is pending now, could not be done earlier because of his agitation. His other labs are reviewed and he has leukocytosis of 14.7, rest of vitals looks stable and patient is afebrile. TSH a 3.3. Urinalysis is negative. Echocardiogram showed ejection fraction of 50-55%. 09/19: Patient is more confused today, family members are at bedside. He has a Marmolejo catheter for urinary retention. Heparin was placed on hold due to hematuria. He is off Cardizem drip.repeat blood work reveals WBC 10.7, hemoglobin 12.8, platelet count 173. Chloride 108, CO2 25, BUN 23 creatinine 1.2. Urinalysis revealed small amount of blood but no sign of infection. CAT scan of the brain revealed no acute intracranial abnormality or gross space- occupying lesion. Carotid ultrasound revealed plaquing without significant flow limiting stenosis internal carotid arteries. Some moderate stenosis of the external carotid arteries. 09/20: Patient has developed hematuria again overnight. He cardiology is planning for pacemaker insertion today. Family have determined patient to be full CODE STATUS. Discussed discharge planning with the family and they are agreeable to [facility] for subacute rehab which will plan for the end of this week. Order placed with social work to follow-up. Heart rate mostly running in the 40s but did dip into the 30s, blood pressure 128/53, pulse ox 96% on room air, afebrile. Repeat blood work reveals chloride 110, BUN 27 creatinine 1.1. Blood sugar 102. Patient is also been seen by psychiatry for delirium secondary to medications including benzodiazepines. Recommendations are for delirium precautions and the following medication changes: Avoid anticholinergics and benzodiazepines. Prolixin 1 mg twice a day and as needed for agitation, m elatonin 2 mg daily at bedtime for sleep. 09/21: Patient had worsening confusion last night and one dose of Ativan was given with improvement of his behavior. Patient's son Flaco spent the night in the room. Consult added for neurology. Patient is noted to have some coughing today with water but was able to take his medications earlier, speech therapy consult added. Patient is currently nothing by mouth per cardiology and nursing will follow-up with cardiology [employer] SALESPERSON regarding this. Patient has been afebrile, heart rate in the 50s, blood pressure 133/61, pulse ox 96% on room air. WBC 9.1, hemoglobin 12.7, platelets 183. Sodium 140, potassium 4.4, chloride 110, CO2 21, BUN 25 creatinine 1.07. Liver function tests were normal. Blood culture no growth at 48 hours and finalized. Wound culture from right arm reveals no growth at 48 hours repeat chest x-ray reveals no acute pulmonary process. Patient has been seen by psychiatry for delirium secondary to medications including benzodiazepines.. REVIEW OF SYSTEMS Constitutional: No fever, no chills, no night sweats. No weight change. generalized weakness, fatigue or lethargy. No daytime sleepiness. EENT: No headache. No blurred vision or double vision, no loss of vision. No loss of Hearing, no ringing in the ears, no dizziness. No nasal drainage or congestion. No epistaxis. No sore throat. Lungs: No shortness of breath, cough, no sputum production. No wheezing. Cardiovascular: No chest pain, no lower extremity edema. No palpitations. No paroxysmal nocturnal dyspnea. No orthopnea. No lightheadedness or dizziness. No syncopal episodes. Abdominal: No abdominal pain. No nausea, vomiting. No diarrhea. No const ipation. No bloody or tarry stools. No loss of appetite. Genitourinary: No dysuria, increased frequency, urgency. No urinary retention. Musculoskeletal: No myalgias. No muscle weakness, no gait dysfunction, no frequent falls. No back pain. No neck pain. Integumentary: No wounds, no lesions. No rash or pruritus. No unusual bruising. No change in hair or nails. Neurologic: No aphasia. No facial droop. noted change in mentation. No head injury. No headache. No paralysis. No paresthesia. Psychiatric: No depression. No anxiety. No mood swings. Endocrine: No abnormal blood sugars. No weight change. No excessive sweating or thirst. No cold intolerance. PHYSICAL EXAMINATION Gen: This is a thin cachectic 86-year-old male. He is resting in bed appears to be comfortable. patient's son is at bedside. HEENT: Head is atraumatic, normocephalic. Pupils equal, round. Sclerae is anicteric. NECK: Supple. No JVD. No lymphadenopathy. No thyromegaly. LUNGS: Clear to auscultation. No wheezes or rhonchi. No intercostal retractions. HEART: Irregular rate and rhythm. No murmur. ABDOMEN: Soft. Bowel sounds are present. No masses. No tenderness. EXTREMITIES: No pedal edema. No calf tenderness. NEUROLOGICAL: Patient is awake, alert and oriented to person. Cranial nerves 2 through 12 are grossly intact. ASSESSMENT AND PLAN 1. A. fib with RVR, Paroxysmal. Patient continued on eliquis 2.5 mg twice daily, Lopressor 25 mg twice daily. 2. 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 3. Lower extremity cellulitis. Continue Kefzol. 4. Metabolic encephalopathy/acute delirium. CAT scan negative for intracranial abnormality.Consult with neurology. Patient has been seen by psychiatry with recommendations for Prolixin 0.5 mg twice daily and 2 mg 3 times daily as needed, melatonin. 5. History of hypertension. Continue Aldactone 12.5 mg daily 6. Remote history of tobacco use. 7. Urinary retention requiring Marmolejo catheter. Continue Flomax 0.4 mg daily. 8. Hematuria. Monitor CBC. 9. GI prophylaxis. Pepcid 10. DVT prophylaxis. SCDs and MONICA hose. CODE STATUS: Full code DISCHARGE PLAN on or Sunday. Impression and plan of care have been directed as dictated by the signing physician. Navya Caraballo nurse practitioner acting as scribe for signing physician. Objective - Vital Signs Vital signs: Vital Signs Temp 97.5 F L 09/20/21 23:20 Pulse 54 L 09/21/21 04:00 Resp 15 09/21/21 02:10 BP 133/61 09/20/21 23:20 Pulse Ox 96 09/20/21 23:20 FiO2 Intake & Output 09/20/21 09/21/21 09/21/21 18:59 06:59 18:59 Intake Total 290 10 Output Total 650 300 Balance -360 -300 10 Intake: IV 290 10 Invasive Line 2 10 Output: Urine 650 300 Other: Voiding Method Indwelling Catheter Indwelling Catheter - Labs CBC & Chem 7: 09/21/21 09:04 09/21/21 09:04 Labs: Abnormal Lab Results - Last 24 Hours (Table) 09/20/21 Range/Units 09:26 Chloride 110 H (98-107) mmol/L BUN 27 H (9-20) mg/dL Glucose 102 H (74-99) mg/dL Calcium 7.9 L (8.4-10.2) mg/dL Microbiology - Last 24 Hours (Table) 09/18/21 22:58 Blood Culture - Preliminary Blood No Growth after 48 hours 09/19/21 00:24 Gram Stain - Preliminary Arm - Right Wound Culture - Preliminary
--- NOTE | 2021-09-21 12:51 | P.PN ---
Subjective This is a 86-year-old male with a past medical history of hypertension. He does not follow with a forestry extension specialist. We have been asked to see in consultation for bradycardia and atrial fibrillation with RVR. Patient was taken to the urgent care center by his son because of symptoms of dizziness. He was found to be bradycardic and then went into atrial fibrillation with heart rate in the 120s. He was started on IV Cardizem and IV heparin drip. Echocardiogram revealed an EF of 5055%, mild tricuspid regurgitation. Tachy-Bradycardia noted on telemetry and pacemaker was recommended On 09/20, patient underwent single chamber pacemaker implantation with Dr. Sanchez. Patient is seen and examined at bedside, he is alert, oriented x 2-3, appears lethargic, but able to answer questions appropriately. He denies any chest pain or shortness of breath. Has no complaints this morning. His vital signs are stable. Telemetry revealed sinus rhythm HR 50s, V paced beats noted. No further atrial fibrillation noted. Device was interrogated this morning, function normally, no acute findings. Chest x-ray reviewed. GENERAL: Frail no acute distress NECK: Supple without JVD or thyromegaly. LUNGS: Breath sounds clear to auscultation bilaterally. Respiration equal and unlabored. No wheezes, rales or rhonchi. HEART: Regular rate and rhythm without murmurs, rubs or gallops. S1 and S2 heard. EXTREMITIES: Normal range of motion, no edema. No clubbing or cyanosis. Peripheral pulses intact. ASSESSMENT Dizziness Tachybradycardia Syndrome Status post pacemaker implantation on 09/20 New onset paroxysmal atrial fibrillation with RVR, [id number] score 3 Hypertension Leukocytosis PLAN Device was interrogated this morning, function normally, no acute findings. Continue Eliquis 2.5mg BID, case management consulted for coverage Continue metoprolol tartrate 25mg BID and spironolactone From cardiology perspective, patient is stable. Follow up outpatient with Dr. Summers Nurse Practitioner note has been reviewed, I agree with a documented findings and plan of care. Patient was seen and examined. Objective - Vital Signs Vital signs: Vital Signs Temp 97.5 F L 09/20/21 23:20 Pulse 54 L 09/21/21 04:00 Resp 15 09/21/21 02:10 BP 133/61 09/20/21 23:20 Pulse Ox 96 09/20/21 23:20 FiO2 Intake & Output 09/20/21 09/21/21 09/21/21 18:59 06:59 18:59 Intake Total 290 10 Output Total 650 300 500 Balance -360 -300 -490 Intake: IV 290 10 Invasive Line 2 10 Output: Urine 650 300 500 Other: Voiding Method Indwelling Catheter Indwelling Catheter - Labs CBC & Chem 7: 09/21/21 09:04 09/21/21 09:04 Labs: Abnormal Lab Results - Last 24 Hours (Table) 09/21/21 09/21/21 Range/Units 09:04 09:04 RBC 4.05 L (4.30-5.90) m/uL Hgb 12.7 L (13.0-17.5) gm/dL Neutrophils # 8.0 H (1.3-7.7) k/uL Lymphocytes # 0.4 L (1.0-4.8) k/uL Chloride 110 H (98-107) mmol/L Carbon Dioxide 21 L (22-30) mmol/L BUN 25 H (9-20) mg/dL Calcium 7.9 L (8.4-10.2) mg/dL Total Protein 4.9 L (6.3-8.2) g/dL Albumin 3.0 L (3.5-5.0) g/dL Microbiology - Last 24 Hours (Table) 09/19/21 00:24 Anaerobic Culture - Preliminary Arm - Right 09/19/21 00:24 Gram Stain - Final Arm - Right Wound Culture - Final 09/18/21 22:58 Blood Culture - Preliminary Blood No Growth after 48 hours
--- NOTE | 2021-09-21 14:48 | P.PN ---
Progress Note - Text Progress Note Date: 09/21/21 Interval History: Patient was seen today for psychiatric follow up, patient's nurse states that patient was confused and agitated yesterday after coming back from his procedure. Patient received another dose of Ativan yesterday. Patient was seen today at the bedside with his family there. His daughter reports that patient is doing better today and has been happy with his progress. Patient appears to be more awake and communicating with the filing writer and more directable. He answered questions as best as he could. He remains mild confusion however was corrected and did not display any agitation or irritability. His attention appears to be improving. He is not reporting any depression or anxiety today. He does not know today's date or location however does know his name and his family members in the room. He was more logical and appropriate with his answers.His concentration appears to be improving. He states that he slept fairly last night, fair appetite is wall. At this time patient denies any suicidal or homical ideations, intent or plan. Patient denies any auditory, visual hallucinations and denies any paranoia or delusions. Patient denies any side effects from the medications and has been compliant with meds. Mental Status Exam: General Appearance: Patient appears to be thin, confused, stated age is alert, attending to cooperate, mildly confused. Patient appears to have fair hygiene and grooming wearing hospital gown with improving eye contact. Behavior: Patient is calmly lying in bed without any agitated behavior. Less confused today. Speech: Patient's speech is fluent and nonpressured. [place] Mood/Affect: Patient reports their mood is "ok", affect is congruent Suicidality/Homicidality: Patient denies having any suicidal or homicidal ideation intent or plan. Perceptions: Patient denies any visual hallucinations and denies any auditory hallucinations Though content/process: [place], poverty of content. Not endorsing any delusions. Memory and concentration: AOX1-2, does not know today's date, improving concentration, able to identify people in the room. Judgment and insight: Improving IMPRESSIONS: Delirium, likely secondary to medications including benzodiazepines Plan: -At this time patient DOES NOT meet criteria for inpatient psychiatric admission. -Delirium precautions recommended with patient including - avoiding use of narcotics and RADIAL DRILL PRESS OPERATOR sedatives, limit anticholinergic medications when possible, frequent re-orientation, minimize use of restraints, open window shades during the day and close them at night -Would recommend the following medication changes/additions: Please avoid anticholinergics and benzodiazepines as this will worsen patient's condition. Continue Prolixin by mouth 0.5 mg twice a day for delirium/confusion. Prolixin by mouth and IM when necessary or agitation. if patient does become combative and agitated then consider trying a dose of zyprexa prn either IM or PO 2.5 mg possibly to help instead of ativan/benzos. Melatonin 5 mg daily at bedtime for sleep. -At this time psychiatry will sign off. Patient will be going to [facility] for rehab upon discharge. -Please contact with any questions.
--- NOTE | 2021-09-21 16:49 | P.CNNES ---
History of Present Illness Consult date: 09/21/21 Requesting physician: Navya Caraballo Reason for Consult: Mental status changes History of Present Illness: Patient is an 86-year-old male, otherwise healthy came to the hospital by ambulance on 09/17/2021 for dizziness, nauseous. Patient woke up that morning with dizziness. He initially went to urgent care where he was ruled out for Covid, but was found to have bradycardia with heart rate running in the 30s. He was transferred to the hospital. Patient has been doing well until Sunday09/18/2021 when the family came, he was hallucinating, completely disoriented. The night prior when the family left on Sunday, he was not happy staying in the hospital but otherwise was coherent. On Sunday, he was hallucinating, trying to get out of bed, thought he was in a gas station, and thought was with childhood friend in a farm that he had been in the long past. He was going back to memories that has happened but were not in the present. He did not know family members, trying to pull all the lines. Patient was slightly better on Sunday, still trying to get out of bed, not like himself. He was able to tell his name and date of and the address. He was seen by psychiatrist, who felt it was delirium, and started him on Prolixin, discontinued Ativan. Today patient has improved, but still sometimes talk off. Today he said that he spent the night at the grocery store, thought the ps ychiatrist was his son-in-law. Patient's daughter states that he did eat breakfast, lunch. She believes that he is about 80-85% better. The psychiatrist has started him on Prolixin. Patient lives with his and son. Patient has never smoked, does not drink alcohol. No diabetes. Patient has no history of dementia. He still drives, goes to the grocery stores. Sometime he would repeat stories once in a while but not very frequently. Patient's daughter has no concerns of dementia. Her vitals at the scene was blood pressure 160/99 pulse rate 60, respirations 15, saturation 100% EKG shows first-degree AV block, blood sugar 170. CT brain revealed no acute intracranial abnormality or space occupying lesion. Chronic findings. I personally reviewed computed tomography scan of the head, agree with the findings, no acute process. The position of the head is not the best, but no acute process. Chest x-ray showed no acute cardiopulmonary disease. Patient's blood test shows normal CBC, CMP, UA. No signs of infection. Review of Systems Patient denies any headache, any problem with the vision. No numbness tingling focal weakness. No chest pain or abdominal pain. He has left shoulder pain from recent pacemaker surgery. All other 14 point review of system reviewed, unremarkable. Past Medical History Past Medical History: Hypertension History of Any Multi-Drug Resistant Organisms: None Reported Past Surgical History: Hernia Repair Additional Past Surgical History / Comment(s): bilateral cataract surgery Past Anesthesia/Blood Transfusion Reactions: No Reported Reaction Past Psychological History: No Psychological Hx Reported Smoking Status: Former smoker Past Alcohol Use History: None Reported Past Drug Use History: None Reported Medications and Allergies Home Medications Medication Instructions Recorded Confirmed Type Cephalexin [Keflex] 250 mg PO Q8HR 09/17/21 09/17/21 History Mupirocin 2% Oint [Bactroban 2% 1 applic TOPICAL BID 09/17/21 09/17/21 History Oint] Spironolactone 12.5 mg PO DAILY 09/17/21 09/17/21 History Apixaban [Eliquis] 2.5 mg PO BID 30 Days #60 tab 09/19/21 Rx Allergies Allergy/AdvReac Type Severity Reaction Status Date / Time No Known Allergies Allergy Verified 09/17/21 12:50 Physical Examination - Vital Signs Vital Signs: Vital Signs Temp Pulse Resp BP Pulse Ox 09/21/21 04:00 54 L 09/21/21 02:10 55 L 15 09/20/21 23:20 97.5 F L 55 L 15 133/61 96 09/20/21 21:25 53 L 15 09/20/21 21:20 97.6 F 53 L 15 158/71 96 09/20/21 16:33 97.3 F L 14 162/64 96 Intake and Output 09/20/21 09/21/21 09/21/21 22:59 06:59 14:59 Intake Total 10 Output Total 650 300 500 Balance -650 -300 -490 Intake: IV 10 Invasive Line 2 10 Output: Urine 650 300 500 Other: Voiding Method Indwelling Catheter Indwelling Catheter Patient is an elderly male, in no acute distress. Patient is alert awake. Patient states it is the month of June and the year is 2004. He knows he is in a medical building in [facility]. He thinks Mr. Granda is the current president. He knows name of the state capital [place]. Speech and language functions are normal. Patient can name and repeat very well. Attention, concentration intact and fund of knowledge is slightly limited. On cranial examination, pupils are round and reacting to light, visual reyes are full on confrontation, with no neglect on double simultaneous stimulation. His extraocular muscles are intact with no nystagmus. Face is symmetric, tongue protrudes to the midline. Palatal elevation and sensation normal, hearing is slightly decreased and shoulder shrug normal, facial sensation normal. Shoulder shrug normal. On muscle strength testing, there is no pronator drift and the strength is normal in arms and legs distally and proximally. Deep tendon reflexes are symmetric, 1+ in the upper limbs, 2 at the knees 1 ankles and his toes are pointing baseline upwards, but still downgoing bilaterally. Sensory to touch is equal with no neglect. Cerebellar function showed no ataxia for [id number] testing. No dysdiadochokinesia. Tone and bulk of muscles normal. Gait deferred. On general examination, there is no carotid bruit or murmur, S1-S2 audible. Abdomen is soft nontender. No organomegaly, bowel sounds present. Chest is clear. Peripheral pulses are present. No edema. Results - Laboratory Findings CBC and BMP: 09/21/21 09:04 09/21/21 09:04 Abnormal Lab Findings: Abnormal Labs 09/17/21 09/17/21 09/18/21 10:32 10:32 04:30 WBC RBC 4.04 L Hgb 12.9 L Hct 38.6 L Neutrophils # 8.4 H Lymphocytes # 0.3 L APTT Chloride Carbon Dioxide BUN 22 H Glucose 128 H Calcium Total Protein Albumin Urine Blood Small H Urine RBC 40 H 09/18/21 09/18/21 09/18/21 10:20 10:20 15:58 WBC 14.7 H RBC Hgb Hct Neutrophils # 13.3 H Lymphocytes # 0.5 L APTT >200.0 H* 81.0 H Chloride Carbon Dioxide BUN Glucose Calcium Total Protein Albumin Urine Blood Urine RBC 09/18/21 09/19/21 09/19/21 22:58 05:57 05:57 WBC 10.7 H RBC 3.99 L Hgb 12.8 L Hct 37.8 L Neutrophils # 9.4 H Lymphocytes # 0.5 L APTT 42.6 H 39.4 H Chloride Carbon Dioxide BUN Glucose Calcium Total Protein Albumin Urine Blood Urine RBC 09/19/21 09/20/21 09/21/21 05:57 09:26 09:04 WBC RBC Hgb Hct Neutrophils # Lymphocytes # APTT Chloride 108 H 110 H 110 H Carbon Dioxide 21 L BUN 23 H 27 H 25 H Glucose 123 H 102 H Calcium 8.3 L 7.9 L 7.9 L Total Protein 4.9 L Albumin 3.0 L Urine Blood Urine RBC 09/21/21 09:04 WBC RBC 4.05 L Hgb 12.7 L Hct Neutrophils # 8.0 H Lymphocytes # 0.4 L APTT Chloride Carbon Dioxide BUN Glucose Calcium Total Protein Albumin Urine Blood Urine RBC Assessment and Plan Assessment: * Delirium, unclear etiology. Perhaps related to medication versus hospital related. No obvious infectious source or metabolic/organ dysfunction identified yet. * Atrial fibrillation, started on eliquis * Bradycardia, status post pacemaker. * Hypertension Plan: * Patient's mentation is improving. Psychiatrist has seen the patient, and started on Prolixin. Hopefully delirium will resolve in the next day or so. * Avoid sedatives, hypnotics. * Carotid Doppler revealed atheromatous plaquing without significant flow limiting stenosis internal carotid arteries. Antegrade flow in both vertebral arteries. * 2-D echo revealed normal left-ventricular size, thickness and function. Ejection fraction about 55%. Mild mitral and tricuspid regurgitation. * Patient has newly diagnosed paroxysmal atrial fibrillation, started on Eliqios. * We will check B12, folate. * Initiated PT and OT consults. * No other neurological workup indicated. We will follow clinically. Thank you for the consult.
[2021-09-21] MEDS: TAMSULOSIN 0.4 MG CAP.ER.24H PO SCH (18:08)
[2021-09-22] MEDS: SPIRONOLACTONE 25 MG TAB PO SCH (09:46)
[2021-09-22] MEDS: METOPROLOL TARTRATE 25 MG TAB PO SCH ×2 (09:47→21:09)
[2021-09-22] MEDS: FAMOTIDINE 20 MG/2 ML VIAL IV SCH (09:47)
[2021-09-22] MEDS: APIXABAN 2.5 MG TABLET PO SCH ×2 (09:47→21:10)
--- NOTE | 2021-09-22 11:13 | P.PN ---
Subjective This is a 86-year-old male with a past medical history of hypertension. He does not follow with a ballet master/mistress. We have been asked to see in consultation for bradycardia and atrial fibrillation with RVR. Patient was taken to the urgent care center by his son because of symptoms of dizziness. He was found to be bradycardic and then went into atrial fibrillation with heart rate in the 120s. He was started on IV Cardizem and IV heparin drip. Echocardiogram revealed an EF of 5055%, mild tricuspid regurgitation. Tachy-Bradycardia noted on telemetry and pacemaker was recommended On 09/20, patient underwent single chamber pacemaker implantation with Dr. Sanchez. 09/22/2021 Patient is seen and examined at bedside, he is alert, oriented x1, to person, he does not know he is in the hospital. He is having increased agitation. Neurology has evaluated the patient He denies any chest pain or shortness of breath. His vital signs are stable. Telemetry revealed patient went into atrial fibrillation overnight, his heart rates are controlled. Device was interrogated this morning, function normally, no acute findings. CT brain repeated on 09/19 with no acute intracranial abnormality GENERAL: Frail no acute distress NECK: Supple without JVD or thyromegaly. LUNGS: Breath sounds clear to auscultation bilaterally. Respiration equal and unlabored. No wheezes, rales or rhonchi. HEART: Regular rate and rhythm without murmurs, rubs or gallops. S1 and S2 heard. EXTREMITIES: Normal range of motion, no edema. No clubbing or cyanosis. Peripheral pulses intact. ASSESSMENT Dizziness Tachybradycardia Syndrome Status post pacemaker implantation on 09/20 New onset paroxysmal atrial fibrillation with RVR, [id number] score 3 Hypertension Leukocytosis, resolved Alerted mental status, Agitation PLAN Device was interrogated, function normally, no acute findings. Continue Eliquis 2.5mg BIB Continue metoprolol tartrate 25mg BID and spironolactone From cardiology perspective, patient is stable status post pacemaker implantation Neurology and Psychiatry are following the patient for altered mental status, increased agitation and delirium. We will follow the patient as needed. Please reconsult if needed. Follow up with Dr. Summers outpatient. Nurse Practitioner note has been reviewed, I agree with a documented findings and plan of care. Patient was seen and examined. Objective - Vital Signs Vital signs: Vital Signs Temp 98 F 09/22/21 03:56 Pulse 72 09/22/21 03:56 Resp 18 09/22/21 03:56 BP 133/67 09/22/21 03:56 Pulse Ox 94 L 09/22/21 03:56 FiO2 Intake & Output 09/21/21 09/22/21 09/22/21 18:59 06:59 18:59 Intake Total 20 20 130 Output Total 500 615 Balance -480 -595 130 Intake: IV 20 20 10 Invasive Line 2 20 20 10 Oral 120 Output: Urine 500 615 Other: Voiding Method Indwelling Catheter Indwelling Catheter - Labs CBC & Chem 7: 09/21/21 09:04 09/21/21 09:04 Labs: Microbiology - Last 24 Hours (Table) 09/18/21 22:58 Blood Culture - Preliminary Blood No Growth after 72 hours 09/19/21 00:24 Anaerobic Culture - Preliminary Arm - Right 09/19/21 00:24 Gram Stain - Final Arm - Right Wound Culture - Final
--- NOTE | 2021-09-22 11:30 | P.PN ---
Subjective Progress Note Date: 09/22/21 HISTORY OF PRESENT ILLNESS This is a pleasant 86 years old male with past medical history of hypertension, not on medication. Patient presents because of dizziness started this morning without syncope or fa ll. Patient states that 4:00 in the morning he started feeling dizzy associated with sweating, dizziness and some headache and lightheadedness he denies chest pain or dyspnea No syncope, no change in urine or bowel habits, no dysuria. Also he fell on his right arm was some abrasion about 2 days ago. No evidence of cellulitis. Patient went to urgent care where his heart rate was down to 70s and was sent to the emergency room Currently heart rate is 52-62, rest of vitals are stable. He denies smoking, alcohol or illicit drugs Labs including CBC, INR, BMP, liver enzymes and troponin are unremarkable. EKG showing sinus rhythm at 62 with PVCs Patient was admitted with cardiology consultation 09/18/2021 Patient today was more confused and needed to be closely monitored, at first we given Seroquel but that did not, hum down so we have to give him Haldol when necessary, patient feels better. Because his heart rate was abnormal, bradycardia on admission. On developed A. fib and RVR cardiology starting him on heparin and Cardizem drip. Also he has evidence of cellulitis on his abrasions on both right forearm and right leg and patient was started on cefazolin Because of his agitation and confusion her CT of the brain which is pending now, could not be done earlier because of his agitation. His other labs are reviewed and he has leukocytosis of 14.7, rest of vitals looks stable and patient is afebrile. TSH a 3.3. Urinalysis is negative. Echocardiogram showed ejection fraction of 50-55%. 09/19: Patient is more confused today, family members are at bedside. He has a Marmolejo catheter for urinary retention. Heparin was placed on hold due to hematuria. He is off Cardizem drip.repeat blood work reveals WBC 10.7, hemoglobin 12.8, platelet count 173. Chloride 108, CO2 25, BUN 23 creatinine 1.2. Urinalysis revealed small amount of blood but no sign of infection. CAT scan of the brain revealed no acute intracranial abnormality or gross space- occupying lesion. Carotid ultrasound revealed plaquing without significant flow limiting stenosis internal carotid arteries. Some moderate stenosis of the external carotid arteries. 09/20: Patient has developed hematuria again overnight. He cardiology is planning for pacemaker insertion today. Family have determined patient to be full CODE STATUS. Discussed discharge planning with the family and they are agreeable to [facility] for subacute rehab which will plan for the end of this week. Order placed with social work to follow-up. Heart rate mostly running in the 40s but did dip into the 30s, blood pressure 128/53, pulse ox 96% on room air, afebrile. Repeat blood work reveals chloride 110, BUN 27 creatinine 1.1. Blood sugar 102. Patient is also been seen by psychiatry for delirium secondary to medications including benzodiazepines. Recommendations are for delirium precautions and the following medication changes: Avoid anticholinergics and benzodiazepines. Prolixin 1 mg twice a day and as needed for agitation, m elatonin 2 mg daily at bedtime for sleep. 09/21: Patient had worsening confusion last night and one dose of Ativan was given with improvement of his behavior. Patient's son Flaco spent the night in the room. Consult added for neurology. Patient is noted to have some coughing today with water but was able to take his medications earlier, speech therapy consult added. 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 Patient has been afebrile, heart rate in the 50s, blood pressure 133/61, pulse ox 96% on room air. WBC 9.1, hemoglobin 12.7, platelets 183. Sodium 140, potassium 4.4, chloride 110, CO2 21, BUN 25 creatinine 1.07. Liver function tests were normal. Blood culture no growth at 48 hours and finalized. Wound culture from right arm reveals no growth at 48 hours repeat chest x-ray reveals no acute pulmonary process. Patient has been seen by psychiatry for delirium secondary to medications including benzodiazepines.. 09/22: Patient's son and daughter are at bedside. Son states the patient had a rough night. This pacemaker has been interrogated with no acute findings. Cardiology recommends continuing eliquis and Lopressor, Aldactone and cleared for discharge. He remains with Marmolejo catheter in place which will plan to discontinue and do a voiding trial. He is continued on Flomax. Patient has been seen by neurology for delirium unclear etiology, perhaps related to medication versus hospital. Patient to be seen by PT and OT today. Vitamin B12 455, folate 19.6. Discussed discharge planning with the family members and patient may do best at home due to his underlying dementia and confusion. PT and OT to see the patient today. Right now [facility] home care is arranged. Anticipate discharge tomorrow. REVIEW OF SYSTEMS Constitutional: No fever, no chills, no night sweats. No weight change. generalized weakness, fatigue or lethargy. No daytime sleepiness. EENT: No headache. No blurred vision or double vision, no loss of vision. No loss of Hearing, no ringing in the ears, no dizziness. No nasal drainage or congestion. No epistaxis. No sore throat. Lungs: No shortness of breath, cough, no sputum production. No wheezing. Cardiovascular: No chest pain, no lower extremity edema. No palpitations. No paroxysmal nocturnal dyspnea. No orthopnea. No lightheadedness or dizziness. No syncopal episodes. Abdominal: No abdominal pain. No nausea, vomiting. No diarrhea. No cons tipation. No bloody or tarry stools. No loss of appetite. Genitourinary: No dysuria, increased frequency, urgency. No urinary retention. Musculoskeletal: No myalgias. No muscle weakness, no gait dysfunction, no frequent falls. No back pain. No neck pain. Integumentary: No wounds, no lesions. No rash or pruritus. No unusual bruising. No change in hair or nails. Neurologic: No aphasia. No facial droop. noted change in mentation. No head injury. No headache. No paralysis. No paresthesia. Psychiatric: No depression. No anxiety. No mood swings. Endocrine: No abnormal blood sugars. No weight change. No excessive sweating or thirst. No cold intolerance. PHYSICAL EXAMINATION Gen: This is a thin cachectic 86-year-old male. He is resting in bed appears to be comfortable. patient's son is at bedside. HEENT: Head is atraumatic, normocephalic. Pupils equal, round. Sclerae is anicteric. NECK: Supple. No JVD. No lymphadenopathy. No thyromegaly. LUNGS: Clear to auscultation. No wheezes or rhonchi. No intercostal retractions. HEART: Irregular rate and rhythm. No murmur. ABDOMEN: Soft. Bowel sounds are present. No masses. No tenderness. EXTREMITIES: No pedal edema. No calf tenderness. Left sided arm sling in place. NEUROLOGICAL: Patient is awake, alert and oriented to person. Cranial nerves 2 through 12 are grossly intact. ASSESSMENT AND PLAN 1. A. fib with RVR, Paroxysmal. Patient continued on eliquis 2.5 mg twice daily, Lopressor 25 mg twice daily. 2. 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 Status post interrogation with no acute findings. 3. Lower extremity cellulitis. Continue Kefzol. 4. Metabolic encephalopathy/acute delirium. CAT scan negative for intracranial abnormality.Consult with neurology appreciated. Patient has been seen by psychiatry with recommendations for Prolixin 0.5 mg twice daily and 2 mg 3 times daily as needed, melatonin. 5. History of hypertension. Continue Aldactone 12.5 mg daily 6. Remote history of tobacco use. 7. Urinary retention requiring Marmolejo catheter. Continue Flomax 0.4 mg daily. 8. Hematuria. Monitor CBC. 9. GI prophylaxis. Pepcid 10. DVT prophylaxis. SCDs and MONICA hose. CODE STATUS: Full code DISCHARGE PLAN Most likely home on Sunday with homecare. Impression and plan of care have been directed as dictated by the signing physician. Navya Caraballo nurse practitioner acting as scribe for signing physician. Objective - Vital Signs Vital signs: Vital Signs Temp 98 F 09/22/21 03:56 Pulse 72 09/22/21 03:56 Resp 18 09/22/21 03:56 BP 133/67 09/22/21 03:56 Pulse Ox 94 L 09/22/21 03:56 FiO2 Intake & Output 09/21/21 09/22/21 09/22/21 18:59 06:59 18:59 Intake Total 20 20 120 Output Total 500 615 Balance -480 -595 120 Intake: IV 20 20 Invasive Line 2 20 20 Oral 120 Output: Urine 500 615 Other: Voiding Method Indwelling Catheter Indwelling Catheter - Labs CBC & Chem 7: 09/21/21 09:04 09/21/21 09:04 Labs: Abnormal Lab Results - Last 24 Hours (Table) 09/21/21 09/21/21 Range/Units 09:04 09:04 RBC 4.05 L (4.30-5.90) m/uL Hgb 12.7 L (13.0-17.5) gm/dL Neutrophils # 8.0 H (1.3-7.7) k/uL Lymphocytes # 0.4 L (1.0-4.8) k/uL Chloride 110 H (98-107) mmol/L Carbon Dioxide 21 L (22-30) mmol/L BUN 25 H (9-20) mg/dL Calcium 7.9 L (8.4-10.2) mg/dL Total Protein 4.9 L (6.3-8.2) g/dL Albumin 3.0 L (3.5-5.0) g/dL Microbiology - Last 24 Hours (Table) 09/18/21 22:58 Blood Culture - Preliminary Blood No Growth after 72 hours 09/19/21 00:24 Anaerobic Culture - Preliminary Arm - Right 09/19/21 00:24 Gram Stain - Final Arm - Right Wound Culture - Final
[2021-09-22 13:45] VITALS: BMI 21.2
[2021-09-22] MEDS: TAMSULOSIN 0.4 MG CAP.ER.24H PO SCH (17:29)
[2021-09-22] MEDS: CYANOCOBALAMIN 500 MCG TAB PO SCH (21:10)
[2021-09-22] MEDS: MELATONIN 5 MG TABLET PO SCH (21:10)
[2021-09-22] MEDS: SODIUM CHLORIDE 0.9% 1,000 ML IV SCH (23:57)
[2021-09-23] MEDS: CYANOCOBALAMIN 500 MCG TAB PO SCH (09:28)
[2021-09-23] MEDS: SPIRONOLACTONE 25 MG TAB PO SCH (09:28)
[2021-09-23] MEDS: FAMOTIDINE 20 MG/2 ML VIAL IV SCH (09:28)
[2021-09-23] MEDS: APIXABAN 2.5 MG TABLET PO SCH ×2 (09:29→20:38)
[2021-09-23] MEDS: METOPROLOL TARTRATE 25 MG TAB PO SCH ×2 (09:29→20:38)
--- NOTE | 2021-09-23 10:59 | P.PN ---
Subjective Progress Note Date: 09/23/21 HISTORY OF PRESENT ILLNESS This is a pleasant 86 years old male with past medical history of hypertension, not on medication. Patient presents because of dizziness started this morning without syncope or fa ll. Patient states that 4:00 in the morning he started feeling dizzy associated with sweating, dizziness and some headache and lightheadedness he denies chest pain or dyspnea No syncope, no change in urine or bowel habits, no dysuria. Also he fell on his right arm was some abrasion about 2 days ago. No evidence of cellulitis. Patient went to urgent care where his heart rate was down to 70s and was sent to the emergency room Currently heart rate is 52-62, rest of vitals are stable. He denies smoking, alcohol or illicit drugs Labs including CBC, INR, BMP, liver enzymes and troponin are unremarkable. EKG showing sinus rhythm at 62 with PVCs Patient was admitted with cardiology consultation 09/18/2021 Patient today was more confused and needed to be closely monitored, at first we given Seroquel but that did not, hum down so we have to give him Haldol when necessary, patient feels better. Because his heart rate was abnormal, bradycardia on admission. On developed A. fib and RVR cardiology starting him on heparin and Cardizem drip. Also he has evidence of cellulitis on his abrasions on both right forearm and right leg and patient was started on cefazolin Because of his agitation and confusion her CT of the brain which is pending now, could not be done earlier because of his agitation. His other labs are reviewed and he has leukocytosis of 14.7, rest of vitals looks stable and patient is afebrile. TSH a 3.3. Urinalysis is negative. Echocardiogram showed ejection fraction of 50-55%. 09/19: Patient is more confused today, family members are at bedside. He has a Marmolejo catheter for urinary retention. Heparin was placed on hold due to hematuria. He is off Cardizem drip.repeat blood work reveals WBC 10.7, hemoglobin 12.8, platelet count 173. Chloride 108, CO2 25, BUN 23 creatinine 1.2. Urinalysis revealed small amount of blood but no sign of infection. CAT scan of the brain revealed no acute intracranial abnormality or gross space- occupying lesion. Carotid ultrasound revealed plaquing without significant flow limiting stenosis internal carotid arteries. Some moderate stenosis of the external carotid arteries. 09/20: Patient has developed hematuria again overnight. He cardiology is planning for pacemaker insertion today. Family have determined patient to be full CODE STATUS. Discussed discharge planning with the family and they are agreeable to [facility] for subacute rehab which will plan for the end of this week. Order placed with social work to follow-up. Heart rate mostly running in the 40s but did dip into the 30s, blood pressure 128/53, pulse ox 96% on room air, afebrile. Repeat blood work reveals chloride 110, BUN 27 creatinine 1.1. Blood sugar 102. Patient is also been seen by psychiatry for delirium secondary to medications including benzodiazepines. Recommendations are for delirium precautions and the following medication changes: Avoid anticholinergics and benzodiazepines. Prolixin 1 mg twice a day and as needed for agitation, m elatonin 2 mg daily at bedtime for sleep. 09/21: Patient had worsening confusion last night and one dose of Ativan was given with improvement of his behavior. Patient's son Flaco spent the night in the room. Consult added for neurology. Patient is noted to have some coughing today with water but was able to take his medications earlier, speech therapy consult added. 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 Patient has been afebrile, heart rate in the 50s, blood pressure 133/61, pulse ox 96% on room air. WBC 9.1, hemoglobin 12.7, platelets 183. Sodium 140, potassium 4.4, chloride 110, CO2 21, BUN 25 creatinine 1.07. Liver function tests were normal. Blood culture no growth at 48 hours and finalized. Wound culture from right arm reveals no growth at 48 hours repeat chest x-ray reveals no acute pulmonary process. Patient has been seen by psychiatry for delirium secondary to medications including benzodiazepines.. 09/22: Patient's son and daughter are at bedside. Son states the patient had a rough night. This pacemaker has been interrogated with no acute findings. Cardiology recommends continuing eliquis and Lopressor, Aldactone and cleared for discharge. He remains with Marmolejo catheter in place which will plan to discontinue and do a voiding trial. He is continued on Flomax. Patient has been seen by neurology for delirium unclear etiology, perhaps related to medication versus hospital. Patient to be seen by PT and OT today. Vitamin B12 455, folate 19.6. Discussed discharge planning with the family members and patient may do best at home due to his underlying dementia and confusion. PT and OT to see the patient today. Right now [facility] home care is arranged. Anticipate discharge tomorrow. 09/23: Marmolejo catheter was removed yesterday the patient is having retention, most likely will need Marmolejo replaced after next bladder scan. Patient was able to eat breakfast this morning. He has not been out of bed since he came in. PT and OT to work with him today. Due to extreme weakness, anticipate need for subacute rehab. Patient has been afebrile, heart rate 52, blood pressure 156 /69, pulse ox 94% on room air. REVIEW OF SYSTEMS Constitutional: No fever, no chills, no night sweats. No weight change. generalized weakness, +fatigue. + daytime sleepiness. EENT: No headache. No blurred vision or double vision, no loss of vision. No loss of Hearing, no ringing in the ears, no dizziness. No nasal drainage or congestion. No epistaxis. No sore throat. Lungs: No shortness of breath, cough, no sputum production. No wheezing. Cardiovascular: No chest pain, no lower extremity edema. No palpitations. No paroxysmal nocturnal dyspnea. No orthopnea. No lightheadedness or dizziness. No syncopal episodes. Abdominal: No abdominal pain. No nausea, vomiting. No diarrhea. No constipation. No bloody or tarry stools. No loss of appetite. Genitourinary: No dysuria, increased frequency, urgency. No urinary retention. Musculoskeletal: No myalgias. + muscle weakness, + gait dysfunction, no frequent falls. No back pain. No neck pain. Integumentary: No wounds, no lesions. No rash or pruritus. No unusual bruising. No change in hair or nails. Neurologic: No aphasia. No facial droop. noted change in mentation. No head injury. No headache. No paralysis. No paresthesia. Psychiatric: No depression. No anxiety. No mood swings. Endocrine: No abnormal blood sugars. No weight change. No excessive sweating or thirst. No cold intolerance. PHYSICAL EXAMINATION Gen: This is a thin cachectic 86-year-old male. He is resting in bed appears to be comfortable. patient's son and daughter are at bedside. HEENT: Head is atraumatic, normocephalic. Pupils equal, round. Sclerae is anicteric. NECK: Supple. No JVD. No lymphadenopathy. No thyromegaly. LUNGS: Clear to auscultation. No wheezes or rhonchi. No intercostal retractions. HEART: Irregular rate and rhythm. No murmur. ABDOMEN: Soft. Bowel sounds are present. No masses. No tenderness. EXTREMITIES: No pedal edema. No calf tenderness. Left sided arm sling in place. NEUROLOGICAL: Patient is awake, alert and oriented to person. Cranial nerves 2 through 12 are grossly intact. ASSESSMENT AND PLAN 1. A. fib with RVR, Paroxysmal. Patient continued on eliquis 2.5 mg twice daily, Lopressor 25 mg twice daily. 2. 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 Status post int errogation with no acute findings. 3. Lower extremity cellulitis. Continue Kefzol. 4. Metabolic encephalopathy/acute delirium. CAT scan negative for intracranial abnormality.Consult with neurology appreciated. Patient has been seen by psychiatry with recommendations for Prolixin 0.5 mg twice daily and 2 mg 3 times daily as needed, melatonin. 5. History of hypertension. Continue Aldactone 12.5 mg daily 6. Remote history of tobacco use. 7. Urinary retention requiring Marmolejo catheter. Continue Flomax 0.4 mg daily. 8. Hematuria. Monitor CBC. 9. Generalized weakness and debility. PT and OT consults. 10. GI prophylaxis. Pepcid 11. DVT prophylaxis. SCDs and MONICA hose. CODE STATUS: Full code DISCHARGE PLAN Most likely subacute rehab on Sunday. Impression and plan of care have been directed as dictated by the signing physician. Navya Caraballo nurse practitioner acting as scribe for signing physician. Objective - Vital Signs Vital signs: Vital Signs Temp 98.9 F 09/23/21 03:24 Pulse 57 L 09/23/21 03:24 Resp 16 09/23/21 03:24 BP 162/72 09/23/21 03:24 Pulse Ox 93 L 09/23/21 03:24 FiO2 Intake & Output 09/22/21 09/23/21 09/23/21 18:59 06:59 18:59 Intake Total 380 Output Total 1000 1550 Balance -620 -1550 Weight 63.503 kg Intake: IV 20 Invasive Line 2 20 Oral 360 Output: Urine 1000 1550 Straight 1075 Other: Voiding Method Indwelling Catheter Urinal - Labs CBC & Chem 7: 09/21/21 09:04 09/21/21 09:04 Labs: Microbiology - Last 24 Hours (Table) 09/18/21 22:58 Blood Culture - Preliminary Blood No Growth after 96 hours
--- NOTE | 2021-09-23 14:51 | P.PN ---
Subjective Progress Note Date: 09/22/21 Patient was seen for a follow-up. Patient is laying comfortably in the bed. Sometimes he is more rational, but still confused. He thinks that he is not retired, and his wants to pick him up from work. Patient is not able to go on a bedpan, his bladder is full. Patient offers no complaints. Objective - Vital Signs Vital signs: Vital Signs Temp 97.8 F 09/22/21 20:07 Pulse 56 L 09/22/21 20:07 Resp 14 09/22/21 20:07 BP 174/78 09/22/21 20:07 Pulse Ox 93 L 09/22/21 20:07 FiO2 Intake & Output 09/22/21 09/22/21 09/23/21 06:59 18:59 06:59 Intake Total 20 380 Output Total 615 1000 Balance -595 -620 Weight 63.503 kg Intake: IV 20 20 Invasive Line 2 20 20 Oral 360 Output: Urine 615 1000 Other: Voiding Method Indwelling Catheter Indwelling Catheter - Exam Patient is laying comfortably in the bed. Detail examination deferred. - Labs CBC & Chem 7: 09/21/21 09:04 09/21/21 09:04 Labs: Microbiology - Last 24 Hours (Table) 09/18/21 22:58 Blood Culture - Preliminary Blood No Growth after 72 hours Assessment and Plan Assessment: * Delirium, unclear etiology. Perhaps related to medication versus hospital psychosis. No obvious infectious source or metabolic/organ dysfunction iden tified yet. * Atrial fibrillation, started on eliquis * Bradycardia, status post pacemaker. * Hypertension Plan: * Patient's mentation is fluctuating, not clearly improving. Psychiatrist has seen the patient, and started on Prolixin. Hopefully delirium will resolve in the next day or so. * Avoid sedatives, hypnotics. * Carotid Doppler revealed atheromatous plaquing without significant flow limiting stenosis internal carotid arteries. Antegrade flow in both vertebral arteries. * 2-D echo revealed normal left-ventricular size, thickness and function. Ejection fraction about 55%. Mild mitral and tricuspid regurgitation. * Patient has newly diagnosed paroxysmal atrial fibrillation, started on Eliqios. * B12 is borderline 455. We will start B12 1000 g orally daily. Folic acid 19.6 normal. * Initiated PT and OT consults. * Follow clinically.
[2021-09-23] MEDS: flUPHENAZine 2.5 MG/ML (MDV) 10 ML VIAL IM PRN (17:31)
[2021-09-23] MEDS: TAMSULOSIN 0.4 MG CAP.ER.24H PO SCH (17:51)
[2021-09-23] MEDS: SODIUM CHLORIDE 0.9% 1,000 ML IV SCH (17:52)
[2021-09-23] MEDS: MELATONIN 5 MG TABLET PO SCH (20:38)
[2021-09-24] MEDS: APIXABAN 2.5 MG TABLET PO SCH ×2 (08:48→20:10)
[2021-09-24] MEDS: FAMOTIDINE 20 MG/2 ML VIAL IV SCH (08:49)
[2021-09-24] MEDS: CYANOCOBALAMIN 500 MCG TAB PO SCH (08:49)
[2021-09-24] MEDS: SPIRONOLACTONE 25 MG TAB PO SCH (08:49)
[2021-09-24] MEDS: METOPROLOL TARTRATE 25 MG TAB PO SCH ×2 (08:49→20:10)
--- NOTE | 2021-09-24 13:14 | P.PN ---
Subjective Progress Note Date: 09/23/21 Patient was seen for a follow-up. Patient's son was present today. Patient is laying comfortably in the bed. Sometimes he is more rational, but still confused. Patient states that "only trouble I have is with urination". Marmolejo's catheter was removed, but patient could not urinate. Therefore Foleys catheter was placed again. Patient's son states that he still gets confused, wants to get out of bed. Doesn't realize that he is in the hospital. He thinks he is in his home. Patient did get into the chair with the physical therapist. Telemetry monitoring showing sinus bradycardia in the 50s. Objective - Vital Signs Vital signs: Vital Signs Temp 97.7 F 09/23/21 11:45 Pulse 50 L 09/23/21 16:05 Resp 14 09/23/21 16:05 BP 131/53 09/23/21 16:05 Pulse Ox 97 09/23/21 16:05 FiO2 Intake & Output 09/22/21 09/23/21 09/23/21 18:59 06:59 18:59 Intake Total 380 1476 Output Total 1000 1550 700 Balance -620 -1550 776 Weight 63.503 kg Intake: IV 20 Invasive Line 2 20 Intake, IV Titration 650 Amount Sodium Chloride 0.9% 1, 550 000 ml @ 50 mls/hr IV . Q20H [facility] Rx#:[id number] ceFAZolin 2 gm In Sodium 100 Chloride 0.9% 50 ml @ 100 mls/hr IVPB Q8HR [facility] Rx# :[id number] Oral 360 826 Output: Urine 1000 1550 700 Straight 1075 Other: Voiding Method Indwelling Catheter Urinal Indwelling Catheter - Exam Patient is laying comfortably in the bed. Patient states it is June 2022, knows name of his son standing Mr. Covarrubias. He thinks he is in [facility] (with his children has graduated from). Patient states that he lives in [facility], although son states that he lives in [place]. Patient knows name of the current president Tonie.. Patient's pupils are equal, round and reacting, face is symmetric. Tongue protrudes the midline. Visual reyes are full on confrontation. On muscle strength testing, the strength is normal in the arms and legs. Sensations are equal. Cerebellar function shows no ataxia for isigdu-cm-symt testing. Abdomen soft, nontender. Chest is clear. - Labs CBC & Chem 7: 09/21/21 09:04 09/21/21 09:04 Labs: Microbiology - Last 24 Hours (Table) 09/19/21 00:24 Anaerobic Culture - Final Arm - Right 09/18/21 22:58 Blood Culture - Preliminary Blood No Growth after 96 hours Assessment and Plan Assessment: * Delirium, unclear etiology. Perhaps related to medication versus hospital psychosis. No obvious infectious source or metabolic/organ dysfunction ident ified yet. * New onset Atrial fibrillation, started on eliquis * Bradycardia, status post pacemaker. * Hypertension Plan: * Patient's mentation is fluctuating, slowly improving. Psychiatrist has seen the patient, and started on Prolixin. * Patient's son states that he does not have any prior history of dementia. Hopefully his delirium will resolve. Recommended patient's son to have patient follow up with a neurologist after discharge (once the delirium has resolved), to rule out underlying mild cognitive impairment. At present as he has no previous history of cognitive impairment, will hold off on cognitive enhancing medications. * Avoid sedatives, hypnotics. * Carotid Doppler revealed atheromatous plaquing without significant flow limiting stenosis internal carotid arteries. Antegrade flow in both vertebral arteries. * 2-D echo revealed normal left-ventricular size, thickness and function. Ejection fraction about 55%. Mild mitral and tricuspid regurgitation. * Patient has newly diagnosed paroxysmal atrial fibrillation, started on Eliqios. * B12 is borderline 455. We will start B12 1000 g orally daily. Folic acid 19.6 normal. * Initiated PT and OT consults. * DVT prophylaxis: Patient on Eliquis. * Patient probably will go to subacute rehab. * As there is no active neurological issue, we will sign off. Dr. Faraz Navarro will be available for neurology service starting from Sunday morning. Please call neurology if any concerns.
--- NOTE | 2021-09-24 15:44 | P.PN ---
Subjective Progress Note Date: 09/24/21 HISTORY OF PRESENT ILLNESS This is a pleasant 86 years old male with past medical history of hypertension, not on medication. Patient presents because of dizziness started this morning without syncope or f all. Patient states that 4:00 in the morning he started feeling dizzy associated with sweating, dizziness and some headache and lightheadedness he denies chest pain or dyspnea No syncope, no change in urine or bowel habits, no dysuria. Also he fell on his right arm was some abrasion about 2 days ago. No evidence of cellulitis. Patient went to urgent care where his heart rate was down to 70s and was sent to the emergency room Currently heart rate is 52-62, rest of vitals are stable. He denies smoking, alcohol or illicit drugs Labs including CBC, INR, BMP, liver enzymes and troponin are unremarkable. EKG showing sinus rhythm at 62 with PVCs Patient was admitted with cardiology consultation 09/18/2021 Patient today was more confused and needed to be closely monitored, at first we given Seroquel but that did not, hum down so we have to give him Haldol when necessary, patient feels better. Because his heart rate was abnormal, bradycardia on admission. On developed A. fib and RVR cardiology starting him on heparin and Cardizem drip. Also he has evidence of cellulitis on his abrasions on both right forearm and right leg and patient was started on cefazolin Because of his agitation and confusion her CT of the brain which is pending now, could not be done earlier because of his agitation. His other labs are reviewed and he has leukocytosis of 14.7, rest of vitals looks stable and patient is afebrile. TSH a 3.3. Urinalysis is negative. Echocardiogram showed ejection fraction of 50-55%. 09/19: Patient is more confused today, family members are at bedside. He has a Marmolejo catheter for urinary retention. Heparin was placed on hold due to hematuria. He is off Cardizem drip.repeat blood work reveals WBC 10.7, hemoglobin 12.8, platelet count 173. Chloride 108, CO2 25, BUN 23 creatinine 1.2. Urinalysis revealed small amount of blood but no sign of infection. CAT scan of the brain revealed no acute intracranial abnormality or gross space- occupying lesion. Carotid ultrasound revealed plaquing without significant flow limiting stenosis internal carotid arteries. Some moderate stenosis of the external carotid arteries. 09/20: Patient has developed hematuria again overnight. He cardiology is planning for pacemaker insertion today. Family have determined patient to be full CODE STATUS. Discussed discharge planning with the family and they are agreeable to [facility] for subacute rehab which will plan for the end of this week. Order placed with social work to follow-up. Heart rate mostly running in the 40s but did dip into the 30s, blood pressure 128/53, pulse ox 96% on room air, afebrile. Repeat blood work reveals chloride 110, BUN 27 creatinine 1.1. Blood sugar 102. Patient is also been seen by psychiatry for delirium secondary to medications including benzodiazepines. Recommendations are for delirium precautions and the following medication changes: Avoid anticholinergics and benzodiazepines. Prolixin 1 mg twice a day and as needed for agitation, melatonin 2 mg daily at bedtime for sleep. 09/21: Patient had worsening confusion last night and one dose of Ativan was given with improvement of his behavior. Patient's son Flaco spent the night in e room. Consult added for neurology. Patient is noted to have some coughing today with water but was able to take his medications earlier, speech therapy consult added. Patient is currently nothing by mouth per cardiology and nursing will follow-up with cardiology [employer] regarding this. Patient has been afebrile, heart rate in the 50s, blood pressure 133/61, pulse ox 96% on room air. WBC 9.1, hemoglobin 12.7, platelets 183. Sodium 140, potassium 4.4, chloride 110, CO2 21, BUN 25 creatinine 1.07. Liver function tests were normal. Blood culture no growth at 48 hours and finalized. Wound culture from right arm reveals no growth at 48 hours repeat chest x-ray reveals no acute pulmonary proc ess. Patient has been seen by psychiatry for delirium secondary to medications including benzodiazepines.. 09/22: Patient's son and daughter are at bedside. Son states the patient had a rough night. This pacemaker has been interrogated with no acute findings. Cardiology recommends continuing eliquis and Lopressor, Aldactone and cleared for discharge. He remains with Marmolejo catheter in place which will plan to discontinue and do a voiding trial. He is continued on Flomax. Patient has been seen by neurology for delirium unclear etiology, perhaps related to medication versus hospital. Patient to be seen by PT and OT today. Vitamin B12 455, folate 19.6. Discussed discharge planning with the family members and patient may do best at home due to his underlying dementia and confusion. PT and OT to see the patient today. Right now [facility] home care is arranged. Anticipate discharge tomorrow. 09/23: Marmolejo catheter was removed yesterday the patient is having retention, most likely will need Marmolejo replaced after next bladder scan. Patient was able to eat breakfast this morning. He has not been out of bed since he came in. PT and OT to work with him today. Due to extreme weakness, anticipate need for subacute rehab. Patient has been afebrile, heart rate 52, blood pressure 15 69, pulse ox 94% on room air. 09/24, inpatient stay day number #7 patient is doing much better, 1 person assist on therapy rather than 2 persons assist for cath in place, for urinary retention, daughter is at bedside, she has some confusion and is still not sleeping, however he can be redirected, the daughter thinks that she might do well at home rather than the half-way, and has, members to assist 24 7, 2 people if needed. Telemetry monitoring will be discontinued today, melatonin increased to 10 mg, sitter hygiene recommended psych following, on chronic seen 0.5 mg twice a day, still on IV cefazolin and cultures, final negative growth, UA is negative, cellulitis on the arms, has improved we will switch to oral Keflex 500 mg 3 times a day, for the cellulitis. Therapy actively working with the patient, and patient's participating, no lightheadedness no dizziness, vitals are stable heart rate is in the 50s low as 48, has a pacemaker creatinine, 1.07 improved REVIEW OF SYSTEMS Constitutional: No fever, no chills, no night sweats. No weight change. generalized weakness, +fatigue. + daytime sleepiness. EENT: No headache. No blurred vision or double vision, no loss of vision. No loss of Hearing, no ringing in the ears, no dizziness. No nasal drainage or congestion. No epistaxis. No sore throat. Lungs: No shortness of breath, cough, no sputum production. No wheezing. Cardiovascular: No chest pain, no lower extremity edema. No palpitations. No paroxysmal nocturnal dyspnea. No orthopnea. No lightheadedness or dizziness. No syncopal episodes. Abdominal: No abdominal pain. No nausea, vomiting. No diarrhea. No constipation. No bloody or tarry stools. No loss of appetite. Genitourinary: No dysuria, increased frequency, urgency. No urinary retention. Musculoskeletal: No myalgias. + muscle weakness, + gait dysfunction, no frequent falls. No back pain. No neck pain. Integumentary: No wounds, no lesions. No rash or pruritus. No unusual bruising. No change in hair or nails. Neurologic: No aphasia. No facial droop. noted change in mentation. No head injury. No headache. No paralysis. No paresthesia. Psychiatric: No depression. No anxiety. No mood swings. Endocrine: No abnormal blood sugars. No weight change. No excessive sweating or thirst. No cold intolerance. PHYSICAL EXAMINATION Gen: This is a thin cachectic 86-year-old male. He is resting in bed appears to be comfortable. patient's son and daughter are at bedside. HEENT: Head is atraumatic, normocephalic. Pupils equal, round. Sclerae is anicteric. NECK: Supple. No JVD. No lymphadenopathy. No thyromegaly. LUNGS: Clear to auscultation. No wheezes or rhonchi. No intercostal retractions. HEART: Irregular rate and rhythm. No murmur. ABDOMEN: Soft. Bowel sounds are present. No masses. No tenderness. EXTREMITIES: No pedal edema. No calf tenderness. Left sided arm sling in place. NEUROLOGICAL: Patient is awake, alert and oriented to person. Cranial nerves 2 through 12 are grossly intact. ASSESSMENT AND PLAN 1. A. fib with RVR, Paroxysmal. Patient continued on eliquis 2.5 mg twice daily, Lopressor 25 mg twice daily. 2. 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 Status post interrogation with no acute findings. 3. Lower extremity cellulitis. Continue Kefzol. Switch to oral Keflex 4. Metabolic encephalopathy/acute delirium. CAT scan negative for intracranial abnormality.Consult with neurology appreciated. Patient has been seen by psychiatry with recommendations for Prolixin 0.5 mg twice daily and 2 mg 3 times daily as needed, melatonin. 5. History of hypertension. Continue Aldactone 12.5 mg daily 6. Remote history of tobacco use. 7. Urinary retention requiring Marmolejo catheter. Continue Flomax 0.4 mg daily. 8. Hematuria. Monitor CBC. 9. Generalized weakness and debility. PT and OT consults. 10. GI prophylaxis. Pepcid 11. DVT prophylaxis. SCDs and MONICA radhae. CODE STATUS: Full code DISCHARGE PLAN [facility] with [facility] on Sunday Active Medications Acetaminophen (Acetaminophen Tab 325 Mg Tab) 650 mg PO Q6HR PRN PRN Reason: Mild Pain Apixaban (Apixaban 2.5 Mg Tablet) 2.5 mg PO BID [facility]; Protocol Last Admin: 09/24/21 08:48 Dose: 2.5 mg Cyanocobalamin (Cyanocobalamin 500 Mcg Tab) 1,000 mcg PO DAILY [facility] Last Admin: 09/24/21 08:49 Dose: 1,000 mcg Famotidine (Famotidine 20 Mg/2 Ml Vial) 20 mg IV DAILY [facility] Last Admin: 09/24/21 08:49 Dose: 20 mg Fluphenazine HCl (Fluphenazine 1 Mg Tab) 2 mg PO TID PRN PRN Reason: Agitation Last Admin: 09/21/21 18:35 Dose: 2 mg Fluphenazine HCl (Fluphenazine 2.5 Mg/Ml (Mdv) 10 Ml Vial) 2 mg IM TID PRN PRN Reason: Agitation Last Admin: 09/23/21 17:31 Dose: 2 mg Fluphenazine HCl (Fluphenazine 1 Mg Tab) 0.5 mg PO BID [facility] Last Admin: 09/24/21 08:54 Dose: 0.5 mg Cefazolin Sodium 2 gm/ Sodium (Chloride) 50 mls @ 100 mls/hr IVPB Q8HR [facility] Last Admin: 09/24/21 09:12 Dose: 100 mls/hr Sodium Chloride (Saline 0.9%) 1,000 mls @ 50 mls/hr IV .Q20H [facility] Last Admin: 09/23/21 17:52 Dose: 50 mls/hr Melatonin (Melatonin 5 Mg Tablet) 10 mg PO HS [facility] Metoprolol Tartrate (Metoprolol Tartrate 25 Mg Tab) 25 mg PO BID [facility] Last Admin: 09/24/21 08:49 Dose: 25 mg Naloxone HCl (Naloxone 0.4 Mg/Ml 1 Ml Vial) 0.2 mg IV Q2M PRN PRN Reason: Opioid Reversal Sodium Chloride (Sodium Chloride 0.9% Flush 10 Ml Syringe) 10 ml IV Q12HR [facility] Last Admin: 09/24/21 10:48 Dose: 10 ml Spironolactone (Spironolactone 25 Mg Tab) 12.5 mg PO DAILY [facility] Last Admin: 09/24/21 08:49 Dose: 12.5 mg Tamsulosin HCl (Tamsulosin 0.4 Mg Cap.Er.24h) 0.4 mg PO PC-SUPPER [facility] Last Admin: 09/23/21 17:51 Dose: 0.4 mg Active Medications Generic Name Dose Route Start Last Admin Trade Name Freq PRN Reason Stop Dose Admin Acetaminophen 650 mg 09/20/21 16:00 Acetaminophen Tab 325 Mg Tab PO Q6HR PRN Mild Pain Apixaban 2.5 mg 09/19/21 10:45 09/24/21 08:48 Apixaban 2.5 Mg Tablet PO 2.5 mg BID [facility] Administration Protocol Cyanocobalamin 1,000 mcg 09/22/21 20:30 09/24/21 08:49 Cyanocobalamin 500 Mcg Tab PO 1,000 mcg DAILY [facility] Administration Famotidine 20 mg 09/20/21 09:00 09/24/21 08:49 Famotidine 20 Mg/2 Ml Vial IV 20 mg DAILY [facility] Administration Fluphenazine HCl 2 mg 09/19/21 14:01 09/21/21 18:35 Fluphenazine 1 Mg Tab PO 2 mg TID PRN Administration Agitation Fluphenazine HCl 2 mg 09/19/21 14:01 09/23/21 17:31 Fluphenazine 2.5 Mg/Ml (Mdv) 10 Ml Vial IM 2 mg TID PRN Administration Agitation Fluphenazine HCl 0.5 mg 09/20/21 21:00 09/24/21 08:54 Fluphenazine 1 Mg Tab PO 0.5 mg BID [facility] Administration Cefazolin Sodium 2 gm/ Sodium 50 mls @ 100 mls/hr 09/19/21 08:00 09/24/21 09:12 Chloride IVPB 100 mls/hr Q8HR [facility] Administration Sodium Chloride 1,000 mls @ 50 mls/hr 09/20/21 10:15 09/23/21 17:52 Saline 0.9% IV 50 mls/hr .Q20H [facility] Administration Melatonin 10 mg 09/24/21 21:00 Melatonin 5 Mg Tablet PO HS [facility] Metoprolol Tartrate 25 mg 09/19/21 10:45 09/24/21 08:49 Metoprolol Tartrate 25 Mg Tab PO 25 mg BID [facility] Administration Naloxone HCl 0.2 mg 09/17/21 11:20 Naloxone 0.4 Mg/Ml 1 Ml Vial IV Q2M PRN Opioid Reversal Sodium Chloride 10 ml 09/20/21 21:00 09/24/21 10:48 Sodium Chloride 0.9% Flush 10 Ml Syringe IV 10 ml Q12HR [facility] Administration Spironolactone 12.5 mg 09/17/21 14:15 09/24/21 08:49 Spironolactone 25 Mg Tab PO 12.5 mg DAILY [facility] Administration Tamsulosin HCl 0.4 mg 09/18/21 20:30 09/23/21 17:51 Tamsulosin 0.4 Mg Cap.Er.24h PO 0.4 mg PC-SUPPER [facility] Administration . Objective - Vital Signs Vital signs: Vital Signs Temp 98.2 F 09/24/21 10:12 Pulse 50 L 09/24/21 12:03 Resp 13 09/24/21 12:03 BP 124/68 09/24/21 12:03 Pulse Ox 97 09/24/21 12:03 FiO2 Intake & Output 09/23/21 09/24/21 09/24/21 18:59 06:59 18:59 Intake Total 1476 168 Output Total 700 2000 Balance 776 -2000 168 Intake: Intake, IV Titration 650 50 Amount Sodium Chloride 0.9% 1, 550 000 ml @ 50 mls/hr IV . Q20H [facility] Rx#:[id number] ceFAZolin 2 gm In Sodium 100 50 Chloride 0.9% 50 ml @ 100 mls/hr IVPB Q8HR [facility] Rx# :[id number] Oral 826 118 Output: Urine 700 2000 Uretheral (Marmolejo) 1200 Other: Voiding Method Indwelling Catheter Indwelling Catheter Incontinent # Bowel Movements 0 1 - Labs CBC & Chem 7: 09/21/21 09:04 09/21/21 09:04 Labs: Microbiology - Last 24 Hours (Table) 09/18/21 22:58 Blood Culture - Preliminary Blood No Growth after 120 hours 09/19/21 00:24 Anaerobic Culture - Final Arm - Right
[2021-09-24] MEDS: TAMSULOSIN 0.4 MG CAP.ER.24H PO SCH (16:57)
[2021-09-24] MEDS: SODIUM CHLORIDE 0.9% 1,000 ML IV SCH (17:04)
[2021-09-24] MEDS ORDERED: MELATONIN 5 MG TABLET PO SCH (21:00)
[2021-09-25] MEDS: flUPHENAZine 2.5 MG/ML (MDV) 10 ML VIAL IM PRN (00:02)
[2021-09-25] MEDS: METOPROLOL TARTRATE 25 MG TAB PO SCH ×2 (08:37→19:48)
[2021-09-25] MEDS: SPIRONOLACTONE 25 MG TAB PO SCH (09:05)
[2021-09-25] MEDS: CYANOCOBALAMIN 500 MCG TAB PO SCH (09:05)
[2021-09-25] MEDS: APIXABAN 2.5 MG TABLET PO SCH ×2 (09:05→19:48)
[2021-09-25] MEDS: FAMOTIDINE 20 MG/2 ML VIAL IV SCH (09:09)
--- NOTE | 2021-09-25 11:05 | P.PN ---
Subjective Progress Note Date: 09/25/21 HISTORY OF PRESENT ILLNESS This is a pleasant 86 years old male with past medical history of hypertension, not on medication. Patient presents because of dizziness started this morning without syncope or f all. Patient states that 4:00 in the morning he started feeling dizzy associated with sweating, dizziness and some headache and lightheadedness he denies chest pain or dyspnea No syncope, no change in urine or bowel habits, no dysuria. Also he fell on his right arm was some abrasion about 2 days ago. No evidence of cellulitis. Patient went to urgent care where his heart rate was down to 70s and was sent to the emergency room Currently heart rate is 52-62, rest of vitals are stable. He denies smoking, alcohol or illicit drugs Labs including CBC, INR, BMP, liver enzymes and troponin are unremarkable. EKG showing sinus rhythm at 62 with PVCs Patient was admitted with cardiology consultation 09/18/2021 Patient today was more confused and needed to be closely monitored, at first we given Seroquel but that did not, hum down so we have to give him Haldol when necessary, patient feels better. Because his heart rate was abnormal, bradycardia on admission. On developed A. fib and RVR cardiology starting him on heparin and Cardizem drip. Also he has evidence of cellulitis on his abrasions on both right forearm and right leg and patient was started on cefazolin Because of his agitation and confusion her CT of the brain which is pending now, could not be done earlier because of his agitation. His other labs are reviewed and he has leukocytosis of 14.7, rest of vitals looks stable and patient is afebrile. TSH a 3.3. Urinalysis is negative. Echocardiogram showed ejection fraction of 50-55%. 09/19: Patient is more confused today, family members are at bedside. He has a Marmolejo catheter for urinary retention. Heparin was placed on hold due to hematuria. He is off Cardizem drip.repeat blood work reveals WBC 10.7, hemoglobin 12.8, platelet count 173. Chloride 108, CO2 25, BUN 23 creatinine 1.2. Urinalysis revealed small amount of blood but no sign of infection. CAT scan of the brain revealed no acute intracranial abnormality or gross space- occupying lesion. Carotid ultrasound revealed plaquing without significant flow limiting stenosis internal carotid arteries. Some moderate stenosis of the external carotid arteries. 09/20: Patient has developed hematuria again overnight. He cardiology is planning for pacemaker insertion today. Family have determined patient to be full CODE STATUS. Discussed discharge planning with the family and they are agreeable to [facility] for subacute rehab which will plan for the end of this week. Order placed with social work to follow-up. Heart rate mostly running in the 40s but did dip into the 30s, blood pressure 128/53, pulse ox 96% on room air, afebrile. Repeat blood work reveals chloride 110, BUN 27 creatinine 1.1. Blood sugar 102. Patient is also been seen by psychiatry for delirium secondary to medications including benzodiazepines. Recommendations are for delirium precautions and the following medication changes: Avoid anticholinergics and benzodiazepines. Prolixin 1 mg twice a day and as needed for agitation, melatonin 2 mg daily at bedtime for sleep. 09/21: Patient had worsening confusion last night and one dose of Ativan was given with improvement of his behavior. Patient's son Flaco spent the night in e room. Consult added for neurology. Patient is noted to have some coughing today with water but was able to take his medications earlier, speech therapy consult added. Patient is currently nothing by mouth per cardiology and nursing will follow-up with cardiology [facility] regarding this. Patient has been afebrile, heart rate in the 50s, blood pressure 133/61, pulse ox 96% on room air. WBC 9.1, hemoglobin 12.7, platelets 183. Sodium 140, potassium 4.4, chloride 110, CO2 21, BUN 25 creatinine 1.07. Liver function tests were normal. Blood culture no growth at 48 hours and finalized. Wound culture from right arm reveals no growth at 48 hours repeat chest x-ray reveals no acute pulmonary proc ess. Patient has been seen by psychiatry for delirium secondary to medications including benzodiazepines.. 09/22: Patient's son and daughter are at bedside. Son states the patient had a rough night. This pacemaker has been interrogated with no acute findings. Cardiology recommends continuing eliquis and Lopressor, Aldactone and cleared for discharge. He remains with Marmolejo catheter in place which will plan to discontinue and do a voiding trial. He is continued on Flomax. Patient has been seen by neurology for delirium unclear etiology, perhaps related to medication versus hospital. Patient to be seen by PT and OT today. Vitamin B12 455, folate 19.6. Discussed discharge planning with the family members and patient may do best at home due to his underlying dementia and confusion. PT and OT to see the patient today. Right now [facility] home care is arranged. Anticipate discharge tomorrow. 09/23: Marmolejo catheter was removed yesterday the patient is having retention, most likely will need Marmolejo replaced after next bladder scan. Patient was able to eat breakfast this morning. He has not been out of bed since he came in. PT and OT to work with him today. Due to extreme weakness, anticipate need for subacute rehab. Patient has been afebrile, heart rate 52, blood pressure 15 , pulse ox 94% on room air. 09/24, inpatient stay day number #7 patient is doing much better, 1 person assist on therapy rather than 2 persons assist for cath in place, for urinary retention, daughter is at bedside, she has some confusion and is still not sleeping, however he can be redirected, the daughter thinks that she might do well at home rather than the [facility], and has, members to assist 24 7, 2 people if needed. Telemetry monitoring will be discontinued today, melatonin increased to 10 mg, sitter hygiene recommended psych following, on chronic seen 0.5 mg twice a day, still on IV cefazolin and cultures, final negative growth, UA is negative, cellulitis on the arms, has improved we will switch to oral Keflex 500 mg 3 times a day, for the cellulitis. Therapy actively working with the patient, and patient's participating, no lightheadedness no dizziness, vitals are stable heart rate is in the 50s low as 48, has a pacemaker creatinine, 1.07 improved 09/30 patient is dozing in and out of sleep today, more hypersomnolent to it, has difficulty with therapies today, full, seems to be cloudy, check for urine culture, has been on Prolixin without any changes, melatonin started last night, as the patient is not sleeping, patient's son is at bedside today, cellulitis in the arms are much better, seems to decline with regards to debility, over the past 12 hours. Patient has no problems with appetite, however she chokes on food sometimes. , no current fever, vitals are stable. A modified barium swallow to be done, might need chest x-ray. No cough noted REVIEW OF SYSTEMS Constitutional: No fever, no chills, no night sweats. No weight change. generalized weakness, +fatigue. + daytime sleepiness. EENT: No headache. No blurred vision or double vision, no loss of vision. No loss of Hearing, no ringing in the ears, no dizziness. No nasal drainage or congestion. No epistaxis. No sore throat. Lungs: No shortness of breath, cough, no sputum production. No wheezing. Cardiovascular: No chest pain, no lower extremity edema. No palpitations. No paroxysmal nocturnal dyspnea. No orthopnea. No lightheadedness or dizziness. No syncopal episodes. Abdominal: No abdominal pain. No nausea, vomiting. No diarrhea. No constipation. No bloody or tarry stools. No loss of appetite. Genitourinary: No dysuria, increased frequency, urgency. No urinary retention. Musculoskeletal: No myalgias. + muscle weakness, + gait dysfunction, no frequent falls. No back pain. No neck pain. Integumentary: No wounds, no lesions. No rash or pruritus. No unusual b ruising. No change in hair or nails. Neurologic: No aphasia. No facial droop. noted change in mentation. No head injury. No headache. No paralysis. No paresthesia. Psychiatric: No depression. No anxiety. No mood swings. Endocrine: No abnormal blood sugars. No weight change. No excessive sweating or thirst. No cold intolerance. PHYSICAL EXAMINATION Gen: This is a thin cachectic 86-year-old male. He is resting in bed appears to be comfortable. patient's son and daughter are at bedside. HEENT: Head is atraumatic, normocephalic. Pupils equal, round. Sclerae is anicteric. NECK: Supple. No JVD. No lymphadenopathy. No thyromegaly. LUNGS: Clear to auscultation. No wheezes or rhonchi. No intercostal retractions. HEART: Irregular rate and rhythm. No murmur. ABDOMEN: Soft. Bowel sounds are present. No masses. No tenderness. EXTREMITIES: No pedal edema. No calf tenderness. Left sided arm sling in place. NEUROLOGICAL: Patient is awake, alert and oriented to person. Cranial nerves 2 through 12 are grossly intact. ASSESSMENT AND PLAN 1. A. fib with RVR, Paroxysmal. Patient continued on eliquis 2.5 mg twice daily, Lopressor 25 mg twice daily. 2. 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 Status post interrogation with no acute findings. 3. Lower extremity cellulitis. Continue Kefzol. Switch to oral Keflex 4. Metabolic encephalopathy/acute delirium. CAT scan negative for intracranial abnormality.Consult with neurology appreciated. Patient has been seen by psychiatry with recommendations for Prolixin 0.5 mg twice daily and 2 mg 3 times daily as needed, melatonin. 5. History of hypertension. Continue Aldactone 12.5 mg daily 6. Remote history of tobacco use. 7. Urinary retention requiring Marmolejo catheter. Continue Flomax 0.4 mg daily. 8. Hematuria. Monitor CBC. 9. Generalized weakness and debility. PT and OT consults. 10. GI prophylaxis. Pepcid 11. DVT prophylaxis. SCDs and MONICA nguyen. CODE STATUS: Full code DISCHARGE PLAN [facility] with [facility]acute rehab on Sunday Vital Signs - 24 hr 09/24/21 09/24/21 09/24/21 12:03 17:03 20:00 Temperature 97.0 F L Pulse Rate [ 50 L 59 L 53 L Pulse Oximetery ] Respiratory 13 15 18 Rate Blood Pressure 124/68 132/69 172/70 [Right Arm] O2 Sat by Pulse 97 97 96 Oximetry 09/24/21 09/24/21 09/25/21 21:50 22:35 07:48 Temperature 97.6 F Pulse Rate [ 53 L 50 L Pulse Oximetery ] Respiratory 16 Rate Blood Pressure 126/70 110/52 [Right Arm] O2 Sat by Pulse 94 L Oximetry Objective - Vital Signs Vital signs: Vital Signs Temp 97.6 F 09/25/21 07:48 Pulse 50 L 09/25/21 07:48 Resp 16 09/25/21 07:48 BP 110/52 09/25/21 07:48 Pulse Ox 94 L 09/25/21 07:48 FiO2 Intake & Output 09/24/21 09/25/21 09/25/21 18:59 06:59 18:59 Intake Total 168 600 Output Total 700 1000 Balance -532 -400 Intake: Intake, IV Titration 50 600 Amount Sodium Chloride 0.9% 1, 600 000 ml @ 50 mls/hr IV . Q20H [facility] Rx#:[id number] ceFAZolin 2 gm In Sodium 50 Chloride 0.9% 50 ml @ 100 mls/hr IVPB Q8HR [facility] Rx# :[id number] Oral 118 0 Output: Urine 700 1000 Other: Voiding Method Incontinent Indwelling Catheter Indwelling Catheter # Bowel Movements 1 - Labs CBC & Chem 7: 09/21/21 09:04 09/21/21 09:04 Labs: Microbiology - Last 24 Hours (Table) 09/18/21 22:58 Blood Culture - Final Blood No Growth after 144 hours
[2021-09-25] MEDS: SODIUM CHLORIDE 0.9% 1,000 ML IV SCH ×2 (15:43→23:43)
[2021-09-25] MEDS: TAMSULOSIN 0.4 MG CAP.ER.24H PO SCH (17:27)
[2021-09-25] MEDS: MELATONIN 5 MG TABLET PO SCH (19:48)
[2021-09-26] MEDS: flUPHENAZine 2.5 MG/ML (MDV) 10 ML VIAL IM PRN (04:03)
[2021-09-26 06:22] LABS: Appearance,Urine Clear (Clear); Bilirubin,Urine Negative (Negative); Blood,Urine Small (Negative); Color,Urine Light Yellow; Glucose,Urine (UA) Negative (Negative); Ketones,Urine Negative (Negative); Leukocyte Esterase,Urine Negative (Negative); Nitrite,Urine Negative (Negative); PH, Urine 6.5 (5.0-8.0); Protein,Urine Negative (Negative); RBC,Urine 22 /hpf (0-5); Specific Gravity,Urine 1.011 (1.001-1.035); Urobilinogen,Urine <2.0 mg/dL (<2.0); WBC,Urine 2 /hpf (0-5)
[2021-09-26] MEDS: FAMOTIDINE 20 MG TAB PO SCH (10:00)
[2021-09-26] MEDS: CYANOCOBALAMIN 500 MCG TAB PO SCH (10:01)
[2021-09-26] MEDS: SPIRONOLACTONE 25 MG TAB PO SCH (10:01)
[2021-09-26] MEDS: METOPROLOL TARTRATE 25 MG TAB PO SCH ×2 (10:01→19:37)
[2021-09-26] MEDS: APIXABAN 2.5 MG TABLET PO SCH ×2 (10:01→19:37)
--- NOTE | 2021-09-26 13:41 | P.PN ---
Subjective Progress Note Date: 09/26/21 HISTORY OF PRESENT ILLNESS This is a pleasant 86 years old male with past medical history of hypertension, not on medication. Patient presents because of dizziness started this morning without syncope or f all. Patient states that 4:00 in the morning he started feeling dizzy associated with sweating, dizziness and some headache and lightheadedness he denies chest pain or dyspnea No syncope, no change in urine or bowel habits, no dysuria. Also he fell on his right arm was some abrasion about 2 days ago. No evidence of cellulitis. Patient went to urgent care where his heart rate was down to 70s and was sent to the emergency room Currently heart rate is 52-62, rest of vitals are stable. He denies smoking, alcohol or illicit drugs Labs including CBC, INR, BMP, liver enzymes and troponin are unremarkable. EKG showing sinus rhythm at 62 with PVCs Patient was admitted with cardiology consultation 09/18/2021 Patient today was more confused and needed to be closely monitored, at first we given Seroquel but that did not, hum down so we have to give him Haldol when necessary, patient feels better. Because his heart rate was abnormal, bradycardia on admission. On developed A. fib and RVR cardiology starting him on heparin and Cardizem drip. Also he has evidence of cellulitis on his abrasions on both right forearm and right leg and patient was started on cefazolin Because of his agitation and confusion her CT of the brain which is pending now, could not be done earlier because of his agitation. His other labs are reviewed and he has leukocytosis of 14.7, rest of vitals looks stable and patient is afebrile. TSH a 3.3. Urinalysis is negative. Echocardiogram showed ejection fraction of 50-55%. 09/19: Patient is more confused today, family members are at bedside. He has a Marmolejo catheter for urinary retention. Heparin was placed on hold due to hematuria. He is off Cardizem drip.repeat blood work reveals WBC 10.7, hemoglobin 12.8, platelet count 173. Chloride 108, CO2 25, BUN 23 creatinine 1.2. Urinalysis revealed small amount of blood but no sign of infection. CAT scan of the brain revealed no acute intracranial abnormality or gross space- occupying lesion. Carotid ultrasound revealed plaquing without significant flow limiting stenosis internal carotid arteries. Some moderate stenosis of the external carotid arteries. 09/20: Patient has developed hematuria again overnight. He cardiology is planning for pacemaker insertion today. Family have determined patient to be full CODE STATUS. Discussed discharge planning with the family and they are agreeable to [facility] for subacute rehab which will plan for the end of this week. Order placed with social work to follow-up. Heart rate mostly running in the 40s but did dip into the 30s, blood pressure 128/53, pulse ox 96% on room air, afebrile. Repeat blood work reveals chloride 110, BUN 27 creatinine 1.1. Blood sugar 102. Patient is also been seen by psychiatry for delirium secondary to medications including benzodiazepines. Recommendations are for delirium precautions and the following medication changes: Avoid anticholinergics and benzodiazepines. Prolixin 1 mg twice a day and as needed for agitation, melatonin 2 mg daily at bedtime for sleep. 09/21: Patient had worsening confusion last night and one dose of Ativan was given with improvement of his behavior. Patient's son Flaco spent the night in e room. Consult added for neurology. Patient is noted to have some coughing today with water but was able to take his medications earlier, speech therapy consult added. Patient is currently nothing by mouth per cardiology and nursing will follow-up with cardiology [employer] regarding this. Patient has been afebrile, heart rate in the 50s, blood pressure 133/61, pulse ox 96% on room air. WBC 9.1, hemoglobin 12.7, platelets 183. Sodium 140, potassium 4.4, chloride 110, CO2 21, BUN 25 creatinine 1.07. Liver function tests were normal. Blood culture no growth at 48 hours and finalized. Wound culture from right arm reveals no growth at 48 hours repeat chest x-ray reveals no acute pulmonary proc ess. Patient has been seen by psychiatry for delirium secondary to medications including benzodiazepines.. 09/22: Patient's son and daughter are at bedside. Son states the patient had a rough night. This pacemaker has been interrogated with no acute findings. Cardiology recommends continuing eliquis and Lopressor, Aldactone and cleared for discharge. He remains with Marmolejo catheter in place which will plan to discontinue and do a voiding trial. He is continued on Flomax. Patient has been seen by neurology for delirium unclear etiology, perhaps related to medication versus hospital. Patient to be seen by PT and OT today. Vitamin B12 455, folate 19.6. Discussed discharge planning with the family members and patient may do best at home due to his underlying dementia and confusion. PT and OT to see the patient today. Right now [facility] home care is arranged. Anticipate discharge tomorrow. 09/23: Marmolejo catheter was removed yesterday the patient is having retention, most likely will need Marmolejo replaced after next bladder scan. Patient was able to eat breakfast this morning. He has not been out of bed since he came in. PT and OT to work with him today. Due to extreme weakness, anticipate need for subacute rehab. Patient has been afebrile, heart rate 52, blood pressure 15 , pulse ox 94% on room air. 09/24, inpatient stay day number #7 patient is doing much better, 1 person assist on therapy rather than 2 persons assist for cath in place, for urinary retention, daughter is at bedside, she has some confusion and is still not sleeping, however he can be redirected, the daughter thinks that she might do well at home rather than the [facility], and has, members to assist 24 7, 2 people if needed. Telemetry monitoring will be discontinued today, melatonin increased to 10 mg, sitter hygiene recommended psych following, on chronic seen 0.5 mg twice a day, still on IV cefazolin and cultures, final negative growth, UA is negative, cellulitis on the arms, has improved we will switch to oral Keflex 500 mg 3 times a day, for the cellulitis. Therapy actively working with the patient, and patient's participating, no lightheadedness no dizziness, vitals are stable heart rate is in the 50s low as 48, has a pacemaker creatinine, 1.07 improved 09/25 patient is dozing in and out of sleep today, more hypersomnolent to it, has difficulty with therapies today, full, seems to be cloudy, check for urine culture, has been on Prolixin without any changes, melatonin started last night, as the patient is not sleeping, patient's son is at bedside today, cellulitis in the arms are much better, seems to decline with regards to debility, over the past 12 hours. Patient has no problems with appetite, however she chokes on food sometimes. , no current fever, vitals are stable. A modified barium swallow to be done, might need chest x-ray. No cough noted 09/26, Marmolejo catheter has been replaced again on as there is some urinary retention, over 400 mL, the daughters at bedside, they have understood to arm B safety supination at home, they have agreed on subacute short-term rehabilitation, for endurance. Patient has off-and-on confusion, anddaytime sleepiness, no new changes on treatment from psychiatry, sleep jainism is still discussed, patient's to continue on Flomax, no hematuria on Marmolejo catheter, no falls currently. Discharge, to [facility] in the next 24 hours, with subacute rehabilitation REVIEW OF SYSTEMS Constitutional: No fever, no chills, no night sweats. No weight change. generalized weakness, +fatigue. + daytime sleepiness. EENT: No headache. No blurred vision or double vision, no loss of vision. No loss of Hearing, no ringing in the ears, no dizziness. No nasal drainage or congestion. No epistaxis. No sore throat. Lungs: No shortness of breath, cough, no sputum production. No wheezing. Cardiovascular: No chest pain, no lower extremity edema. No palpitations. No paroxysmal nocturnal dyspnea. No orthopnea. No lightheadedness or dizziness. No syncopal episodes. Abdominal: No abdominal pain. No nausea, vomiting. No diarrhea. No constipation. No bloody or tarry stools. No loss of appetite. Genitourinary: No dysuria, increased frequency, urgency. No urinary retention. Musculoskeletal: No myalgias. + muscle weakness, + gait dysfunction, no frequent falls. No back pain. No neck pain. Integumentary: No wounds, no lesions. No rash or pruritus. No unusual bruising. No change in hair or nails. Neurologic: No aphasia. No facial droop. noted change in mentation. No head injury. No headache. No paralysis. No paresthesia. Psychiatric: No depression. No anxiety. No mood swings. Endocrine: No abnormal blood sugars. No weight change. No excessive sweating or thirst. No cold intolerance. PHYSICAL EXAMINATION Gen: This is a thin cachectic 86-year-old male. He is resting in bed appears to be comfortable. patient's son and daughter are at bedside. HEENT: Head is atraumatic, normocephalic. Pupils equal, round. Sclerae is anicteric. NECK: Supple. No JVD. No lymphadenopathy. No thyromegaly. LUNGS: Clear to auscultation. No wheezes or rhonchi. No intercostal retractions. HEART: Irregular rate and rhythm. No murmur. ABDOMEN: Soft. Bowel sounds are present. No masses. No tenderness. EXTREMITIES: No pedal edema. No calf tenderness. Left sided arm sling in place. NEUROLOGICAL: Patient is awake, alert and oriented to person. Cranial nerves 2 through 12 are grossly intact. ASSESSMENT AND PLAN 1. A. fib with RVR, Paroxysmal. Patient continued on eliquis 2.5 mg twice daily, Lopressor 25 mg twice daily. 2. 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 Status post interrogation with no acute findings. 3. Lower extremity cellulitis. Continue Kefzol. Switch to oral Keflex 4. Metabolic encephalopathy/acute delirium. CAT scan negative for intracranial abnormality.Consult with neurology appreciated. Patient has been seen by psychiatry with recommendations for Prolixin 0.5 mg twice daily and 2 mg 3 times daily as needed, melatonin. 5. History of hypertension. Continue Aldactone 12.5 mg daily 6. Remote history of tobacco use. 7. Urinary retention requiring Marmolejo catheter. Continue Flomax 0.4 mg daily. 8. Hematuria. Monitor CBC. 9. Generalized weakness and debility. PT and OT consults. 10. GI prophylaxis. Pepcid 11. DVT prophylaxis. SCDs and MONICA nguyen. CODE STATUS: Full code DISCHARGE PLAN [facility] subacute rehab on Vital Signs - 24 hr 09/24/21 09/24/21 09/24/21 12:03 17:03 20:00 Temperature 97.0 F L Pulse Rate [ 50 L 59 L 53 L Pulse Oximetery ] Respiratory 13 15 18 Rate Blood Pressure 124/68 132/69 172/70 [Right Arm] O2 Sat by Pulse 97 97 96 Oximetry 09/24/21 09/24/21 09/25/21 21:50 22:35 07:48 Temperature 97.6 F Pulse Rate [ 53 L 50 L Pulse Oximetery ] Respiratory 16 Rate Blood Pressure 126/70 110/52 [Right Arm] O2 Sat by Pulse 94 L Oximetry Objective - Vital Signs Vital signs: Vital Signs Temp 97.5 F L 09/26/21 04:00 Pulse 56 L 09/26/21 04:00 Resp 14 09/26/21 04:00 BP 163/77 09/26/21 04:00 Pulse Ox 94 L 09/26/21 04:00 FiO2 Intake & Output 09/25/21 09/26/21 09/26/21 18:59 06:59 18:59 Intake Total 50 930 120 Output Total 500 Balance 50 430 120 Intake: Intake, IV Titration 50 450 Amount Sodium Chloride 0.9% 1, 400 000 ml @ 50 mls/hr IV . Q20H [facility] Rx#:[id number] ceFAZolin 2 gm In Sodium 50 50 Chloride 0.9% 50 ml @ 100 mls/hr IVPB Q8HR [facility] Rx# :[id number] Oral 480 120 Output: Urine 500 Other: Voiding Method Indwelling Catheter Diaper Indwelling Catheter Incontinent # Voids 1 # Bowel Movements 1 - Labs CBC & Chem 7: 09/21/21 09:04 09/21/21 09:04 Labs: Abnormal Lab Results - Last 24 Hours (Table) 09/26/21 Range/Units 05:45 Urine Blood Small H (Negative) Urine RBC 22 H (0-5) /hpf
[2021-09-26] MEDS: TAMSULOSIN 0.4 MG CAP.ER.24H PO SCH (17:48)
[2021-09-26] MEDS: MELATONIN 5 MG TABLET PO SCH (19:36)
[2021-09-26] MEDS: SODIUM CHLORIDE 0.9% 1,000 ML IV SCH (20:28)
[2021-09-27] MEDS: APIXABAN 2.5 MG TABLET PO SCH ×2 (07:41→21:05)
[2021-09-27] MEDS: METOPROLOL TARTRATE 25 MG TAB PO SCH ×2 (07:41→21:02)
[2021-09-27] MEDS: CYANOCOBALAMIN 500 MCG TAB PO SCH (07:41)
[2021-09-27] MEDS: FAMOTIDINE 20 MG TAB PO SCH (07:42)
[2021-09-27] MEDS: SPIRONOLACTONE 25 MG TAB PO SCH (07:42)
--- NOTE | 2021-09-27 10:03 | P.DS ---
Providers Date of admission: 09/17/21 11:20 Expected date of discharge: 09/27/21 Attending physician: Rojelio Zuniga Consults: 09/17/21 11:20 Consult Physician Routine Consulting Provider: Wagner Summers Consult Reason/Comments: bradycardia Do you want consulting provider notified?: Yes 09/19/21 05:55 Consult Physician Routine Consulting Provider: Rojelio Talley Consult Reason/Comments: delirium Do you want consulting provider notified?: Yes, Notify in am 09/21/21 09:07 Consult Physician Routine Consulting Provider: Candi Victor Consult Reason/Comments: mental status changes Do you want consulting provider notified?: Yes Primary care physician: [facility] Course: HISTORY OF PRESENT ILLNESS This is a pleasant 86 years old male with past medical history of hypertension, not on medication. Patient presents because of dizziness started this morning without syncope or fall. Patient states that 4:00 in the morning he started feeling dizzy associated with sweating, dizziness and some headache and lightheadedness he denies chest pain or dyspnea No syncope, no change in urine or bowel habits, no dysuria. Also he fell on his right arm was some abrasion about 2 days ago. No evidence of cellulitis. Patient went to urgent care where his heart rate was down to 70s and was sent to the emergency room Currently heart rate is 52-62, rest of vitals are stable. He denies smoking, alcohol or illicit drugs Labs including CBC, INR, BMP, liver enzymes and troponin are unremarkable. EKG showing sinus rhythm at 62 with PVCs Patient was admitted with cardiology consultation 09/18/2021 Patient today was more confused and needed to be closely monitored, at first we given Seroquel but that did not, hum down so we have to give him Haldol when necessary, patient feels better. Because his heart rate was abnormal, bradycardia on admission. On developed A. fib and RVR cardiology starting him on heparin and Cardizem drip. Also he has evidence of cellulitis on his abrasions on both right forearm and right leg and patient was started on cefazolin Because of his agitation and confusion her CT of the brain which is pending now, could not be done earlier because of his agitation. His other labs are reviewed and he has leukocytosis of 14.7, rest of vitals looks stable and patient is afebrile. TSH a 3.3. Urinalysis is negative. Echocardiogram showed ejection fraction of 50-55%. 09/19: Patient is more confused today, family members are at bedside. He has a Marmolejo catheter for urinary retention. Heparin was placed on hold due to hematuria. He is off Cardizem drip.repeat blood work reveals WBC 10.7, hemoglobin 12.8, platelet count 173. Chloride 108, CO2 25, BUN 23 creatinine 1.2. Urinalysis revealed small amount of blood but no sign of infection. CAT scan of the brain revealed no acute intracranial abnormality or gross space- occupying lesion. Carotid ultrasound revealed plaquing without significant flow limiting stenosis internal carotid arteries. Some moderate stenosis of the external carotid arteries. 09/20: Patient has developed hematuria again overnight. He cardiology is planning for pacemaker insertion today. Family have determined patient to be full CODE STATUS. Discussed discharge planning with the family and they are agreeable to [facility] for subacute rehab which will plan for the end of this week. Order placed with social work to follow-up. Heart rate mostly running in the 40s but did dip into the 30s, blood pressure 128/53, pulse ox 96% on room air, afebrile. Repeat blood work reveals chloride 110, BUN 27 creatinine 1.1. Blood sugar 102. Patient is also been seen by psychiatry for delirium secondary to medications including benzodiazepines. Recommendations are for delirium precautions and the following medication changes: Avoid anticholinergics and benzodiazepines. Prolixin 1 mg twice a day and as needed for agitation, melatonin 2 mg daily at bedtime for sleep. 09/21: Patient had worsening confusion last night and one dose of Ativan was given with improvement of his behavior. Patient's son Flaco spent the night in the room. Consult added for neurology. Patient is noted to have some coughing today with water but was able to take his medications earlier, speech therapy consult added. Patient is currently nothing by mouth per cardiology and nursing will follow-up with cardiology [employer] regarding this. Patient has been afebrile, heart rate in the 50s, blood pressure 133/61, pulse ox 96% on room air. WBC 9.1, hemoglobin 12.7, platelets 183. Sodium 140, potassium 4.4, chloride 110, CO2 21, BUN 25 creatinine 1.07. Liver function tests were normal. Blood culture no growth at 48 hours and finalized. Wound culture from right arm reveals no growth at 48 hours repeat chest x-ray reveals no acute pulmonary process. Patient has been seen by psychiatry for delirium secondary to medications including benzodiazepines.. 09/22: Patient's son and daughter are at bedside. Son states the patient had a rough night. This pacemaker has been interrogated with no acute findings. Cardiology recommends continuing eliquis and Lopressor, Aldactone and cleared for discharge. He remains with Marmolejo catheter in place which will plan to discontinue and do a voiding trial. He is continued on Flomax. Patient has been seen by neurology for delirium unclear etiology, perhaps related to medication versus hospital. Patient to be seen by PT and OT today. Vitamin B12 455, folate 19.6. Discussed discharge planning with the family members and patient may do best at home due to his underlying dementia and confusion. PT and OT to see the patient today. Right now [facility] care is arranged. Anticipate discharge tomorrow. 09/23: Marmolejo catheter was removed yesterday the patient is having retention, most likely will need Marmolejo replaced after next bladder scan. Patient was able to eat breakfast this morning. He has not been out of bed since he came in. PT and OT to work with him today. Due to extreme weakness, anticipate need for subacute rehab. Patient has been afebrile, heart rate 52, blood pressure 156/69, pulse ox 94% on room air. 09/24, inpatient stay day number #7 patient is doing much better, 1 person assist on therapy rather than 2 persons assist for cath in place, for urinary retention, daughter is at bedside, she has some confusion and is still not sleeping, however he can be redirected, the daughter thinks that she might do well at home rather than the [facility], and has, members to assist 24 7, 2 people if needed. Telemetry monitoring will be discontinued today, melatonin increased to 10 mg, sitter hygiene recommended psych following, on chronic seen 0.5 mg twice a day, still on IV cefazolin and cultures, final negative growth, UA is negative, cellulitis on the arms, has improved we will switch to oral Keflex 500 mg 3 times a day, for the cellulitis. Therapy actively working with the patient, and patient's participating, no lightheadedness no dizziness, vit als are stable heart rate is in the 50s low as 48, has a pacemaker creatinine, 1.07 improved 09/25 patient is dozing in and out of sleep today, more hypersomnolent to it, has difficulty with therapies today, full, seems to be cloudy, check for urine culture, has been on Prolixin without any changes, melatonin started last night, as the patient is not sleeping, patient's son is at bedside today, cellulitis in the arms are much better, seems to decline with regards to debility, over the past 12 hours. Patient has no problems with appetite, however she chokes on food sometimes. , no current fever, vitals are stable. A modified barium swallow to be done, might need chest x-ray. No cough noted 09/26, Marmolejo catheter has been replaced again on as there is some urinary retention, over 400 mL, the daughters at bedside, they have understood to arm B safety supination at home, they have agreed on subacute short-term rehabilitation, for endurance. Patient has off-and-on confusion, anddaytime s leepiness, no new changes on treatment from psychiatry, sleep zoroastrian is still discussed, patient's to continue on Flomax, no hematuria on Marmolejo catheter, no falls currently. Discharge, to [facility] in the next 24 hours, with subacute rehabilitation 09/27: The patient seems more alert today. He is more active as well. We will have PT and OT 3 check patient for discharge needs. At this time, subacute rehab at [facility] is the discharge plan. Due to urinary retention, consult will be added for urology to assess, and continue Flomax. No need for modified barium swallows patient was within normal limits for speech therapy evaluation. Patient remains afebrile, heart rate 59, blood pressure 124/63, pulse ox 90% on room air. Urinalysis performed yesterday revealed small amount of blood, RBCs 22. Patient will be discharged today once he is seen and evaluated by urology and discharge plan is confirmed. DISCHARGE DIAGNOSES 1. A. fib with RVR, Paroxysmal. 2. 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 Status post interrogation with no acute findings. 3. Lower extremity cellulitis. 4. Metabolic encephalopathy/acute delirium. 5. History of hypertension. 6. Remote history of tobacco use. 7. Urinary retention requiring Marmolejo catheter. 8. Hematuria, no UTI. 9. Generalized weakness and debility. DISCHARGE PLAN Subacute rehab at [facility] Greater than 35 minutes was utilized and coordinating patient's discharge. Impression and plan of care have been directed as dictated by the signing physician. Navya Caraballo nurse practitioner acting as scribe for signing physician. Patient Condition at Discharge: Stable Plan - Discharge Summary Discharge Rx Participant: Yes New Discharge Prescriptions: New Apixaban [Eliquis] 2.5 mg PO BID 30 Days #60 tab Metoprolol Tartrate [Lopressor] 25 mg PO BID #60 tab fluPHENAZine [Prolixin] 0.5 mg PO BID #30 tab Cyanocobalamin [Vitamin B-12] 1,000 mcg PO DAILY #0 tab Tamsulosin [Flomax] 0.4 mg PO PC-SUPPER #30 cap Melatonin 10 mg PO DAILY@1999 tab Continue Spironolactone 12.5 mg PO DAILY Mupirocin 2% Oint [Bactroban 2% Oint] 1 applic TOPICAL BID Discontinued Cephalexin [Keflex] 250 mg PO Q8HR Discharge Medication List Mupirocin 2% Oint [Bactroban 2% Oint] 1 applic TOPICAL BID 09/17/21 [History] Spironolactone 12.5 mg PO DAILY 09/17/21 [History] Apixaban [Eliquis] 2.5 mg PO BID 30 Days #60 tab 09/19/21 [Rx] Cyanocobalamin [Vitamin B-12] 1,000 mcg PO DAILY #0 tab 09/27/21 [Rx] Melatonin 10 mg PO DAILY@2000 tab 09/27/21 [Rx] Metoprolol Tartrate [Lopressor] 25 mg PO BID #60 tab 09/27/21 [Rx] Tamsulosin [Flomax] 0.4 mg PO PC-SUPPER #30 cap 09/27/21 [Rx] fluPHENAZine [Prolixin] 0.5 mg PO BID #30 tab 09/27/21 [Rx] Follow up Appointment(s)/Referral(s): Wagner Summers MD [STAFF PHYSICIAN] - 2 Weeks Rojelio Zuniga MD [Primary Care Provider] - 1-2 days [facility], [NON-STAFF] - 1 Week Patient Instructions/Handouts: Apixaban (By mouth), Pacemaker (GEN) Activity/Diet/Wound Care/Special Instructions: Activity Restrictions or Additional Instructions: Instructions following a heart rhythm device implant. 1. Keep dressing dry for 5 days. You khalida cover the area with surrounding with a clean dressing/wrap prior to shower 2. The dressing can be removed in about 5 days in the Device Clinic at [facility]. Absorbable sutures were used to close the wound. 3. Avoid raising the left arm above the shoulder level. 4 week resection. 4. Avoid arm movements such as back scratching, rubbing the head or pulling on a cord. 4 week for striction. 5. Gentle range of motion movements of the shoulder, closest institution should be performed to avoid a frozen shoulder. (Pendulum exercises of the shoulder) 6. The opposite arm may be used freely. 7. Avoid driving for 7 days. 8. Avoid activities such as golfing, swimming, weed whacking, lifting more than 10 pounds of weight, bowling, and weight training/lifting (6 week restriction) 9. Being close to home induction cooktops and activities such as wood chopping with axe, pull ups, power lifting will always be a problem 10. Arm sling is only remind her not to raise arm above the head. You do not need to keep the arm completely immobilized. You're free to move the arm and use it in normal activities. In case of any problems, please call [facility] at [phone] Attention: Device Clinic Device clinic follow up in 5 days Follw up with primary custom shoemaker in 2-3 months Discharge Disposition: TRANSFER TO SNF/ECF
[2021-09-27] MEDS: TAMSULOSIN 0.4 MG CAP.ER.24H PO SCH (18:20)
--- NOTE | 2021-09-27 19:17 | P.GSCN ---
History of Present Illness Consult date: 09/27/21 Reason for Consult: Urinary retention History of present illness: This is a 86-year-old male admitted to the hospital following a fall. He is a patient of Dr. Fernandez, follows up with him for BPH. Urology is consulted for urinary retention, on presentation a Marmolejo catheter was inserted for retention. Subsequently the Marmolejo was removed yesterday his postvoid residual was 400 mL and subsequently the Marmolejo catheter was reinserted . The patient was also started on tamsulosin. Per patient and his son they indicated no previous history of urinary retention. He indicated at baseline he voids without any issues. No history of kidney stones, gross hematuria or recurrent UTIs. Denies any previous bladder or prostate surgeries. Marmolejo catheter currently in place draining clear yellow urine Review of Systems - Constitutional Denies fever, Denies weight loss - EENT Ears, nose, mouth and throat: Denies dysphagia - Gastrointestinal Reports as per HPI - Genitourinary Reports urinary retention - Neurological Denies headaches, Denies syncope Past Medical History Past Medical History: Hypertension History of Any Multi-Drug Resistant Organisms: None Reported Past Surgical History: Hernia Repair Additional Past Surgical History / Comment(s): bilateral cataract surgery Past Anesthesia/Blood Transfusion Reactions: No Reported Reaction Past Psychological History: No Psychological Hx Reported Smoking Status: Former smoker Past Alcohol Use History: None Reported Past Drug Use History: None Reported Medications and Allergies Home Medications Medication Instructions Recorded Confirmed Type Mupirocin 2% Oint [Bactroban 2% 1 applic TOPICAL BID 09/17/21 09/17/21 History Oint] Spironolactone 12.5 mg PO DAILY 09/17/21 09/17/21 History Apixaban [Eliquis] 2.5 mg PO BID 30 Days #60 tab 09/19/21 Rx Cyanocobalamin [Vitamin B-12] 1,000 mcg PO DAILY #0 tab 09/27/21 Rx Melatonin 10 mg PO DAILY@1999 tab 09/27/21 Rx Metoprolol Tartrate [Lopressor] 25 mg PO BID #60 tab 09/27/21 Rx Tamsulosin [Flomax] 0.4 mg PO PC-SUPPER #30 cap 09/27/21 Rx fluPHENAZine [Prolixin] 0.5 mg PO BID #30 tab 09/27/21 Rx Allergies Allergy/AdvReac Type Severity Reaction Status Date / Time No Known Allergies Allergy Verified 09/17/21 12:50 Surgical - Exam Vital Signs Temp Pulse Resp Pulse Ox 97.5 F L 52 L 16 98 09/17/21 10:07 09/17/21 10:07 09/17/21 10:09/17/21 10:07 - General no distress, no pain - Eyes normal ocular movement, no pale - ENT normal nares, normal mucosa - Respiratory normal expansion, normal respiratory effort - Abdomen Abdomen: soft, non tender - Psychiatric oriented to time, oriented to person, oriented to place Results - Labs 09/21/21 09:04 09/21/21 09:04 Assessment and Plan Assessment: This is an 86-year-old male admitted to the hospital following a fall. Urology is consulted for urinary retention, Marmolejo was removed yesterday patient continues to retain with a postvoid residual of 400 mL's. No previous history of retention. Patient was started on Flomax during his hospital admission. Plan to discharge patient to rehab -Recommend keeping and the catheter for 2 weeks, patient can have a trial of void the subacute rehab facility. Can follow-up as an outpatient in with Dr. Fernandez -Recommend continuing Flomax
--- NOTE | 2021-09-27 20:42 | XR ---
EXAMINATION TYPE: XR shoulder complete RT DATE OF EXAM: 09/27/2021 COMPARISON: NONE HISTORY: Pain TECHNIQUE: 3 views FINDINGS: There is acute nondisplaced oblique fracture below the neck of the right humeral head. Ther e is also slightly impacted fracture across the neck of the humeral head. No dislocation. Scapula is intact. IMPRESSION: Acute fracture of the right humeral neck and the proximal shaft with some impaction. No d islocation.
[2021-09-27] MEDS: MELATONIN 5 MG TABLET PO SCH (21:02)
[2021-09-27] MEDS: SODIUM CHLORIDE 0.9% 1,000 ML IV SCH (21:07)
--- NOTE | 2021-09-27 21:12 | XR ---
EXAMINATION TYPE: XR pelvis AP view DATE OF EXAM: 09/27/2021 COMPARISON: NONE HISTORY: Fall. Pain TECHNIQUE: Single view FINDINGS: There is comminuted intertrochanteric fracture right femur. There is osteopenia. Pelvic rin g is intact. Sacroiliac joints are intact. IMPRESSION: Comminuted intertrochanteric fracture right femur.
[2021-09-27] MEDS ORDERED: Acetaminophen-Codeine 300-30mg TAB PO PRN (23:33)
[2021-09-28] MEDS: APIXABAN 2.5 MG TABLET PO SCH ×2 (06:50→20:26)
--- NOTE | 2021-09-28 07:56 | P.PN ---
Subjective Progress Note Date: 09/27/21 HISTORY OF PRESENT ILLNESS This is a pleasant 86 years old male with past medical history of hypertension, not on medication. Patient presents because of dizziness started this morning without syncope or fa ll. Patient states that 4:00 in the morning he started feeling dizzy associated with sweating, dizziness and some headache and lightheadedness he denies chest pain or dyspnea No syncope, no change in urine or bowel habits, no dysuria. Also he fell on his right arm was some abrasion about 2 days ago. No evidence of cellulitis. Patient went to urgent care where his heart rate was down to 70s and was sent to the emergency room Currently heart rate is 52-62, rest of vitals are stable. He denies smoking, alcohol or illicit drugs Labs including CBC, INR, BMP, liver enzymes and troponin are unremarkable. EKG showing sinus rhythm at 62 with PVCs Patient was admitted with cardiology consultation 09/18/2021 Patient today was more confused and needed to be closely monitored, at first we given Seroquel but that did not, hum down so we have to give him Haldol when necessary, patient feels better. Because his heart rate was abnormal, bradycardia on admission. On developed A. fib and RVR cardiology starting him on heparin and Cardizem drip. Also he has evidence of cellulitis on his abrasions on both right forearm and right leg and patient was started on cefazolin Because of his agitation and confusion her CT of the brain which is pending now, could not be done earlier because of his agitation. His other labs are reviewed and he has leukocytosis of 14.7, rest of vitals looks stable and patient is afebrile. TSH a 3.3. Urinalysis is negative. Echocardiogram showed ejection fraction of 50-55%. 09/19: Patient is more confused today, family members are at bedside. He has a Marmolejo catheter for urinary retention. Heparin was placed on hold due to hematuria. He is off Cardizem drip.repeat blood work reveals WBC 10.7, hemoglobin 12.8, platelet count 173. Chloride 108, CO2 25, BUN 23 creatinine 1.2. Urinalysis revealed small amount of blood but no sign of infection. CAT scan of the brain revealed no acute intracranial abnormality or gross space- occupying lesion. Carotid ultrasound revealed plaquing without significant flow limiting stenosis internal carotid arteries. Some moderate stenosis of the external carotid arteries. 09/20: Patient has developed hematuria again overnight. He cardiology is planning for pacemaker insertion today. Family have determined patient to be full CODE STATUS. Discussed discharge planning with the family and they are agreeable to [facility] for subacute rehab which will plan for the end of this week. Order placed with social work to follow-up. Heart rate mostly running in the 40s but did dip into the 30s, blood pressure 128/53, pulse ox 96% on room air, afebrile. Repeat blood work reveals chloride 110, BUN 27 creatinine 1.1. Blood sugar 102. Patient is also been seen by psychiatry for delirium secondary to medications including benzodiazepines. Recommendations are for delirium precautions and the following medication changes: Avoid anticholinergics and benzodiazepines. Prolixin 1 mg twice a day and as needed for agitation, m elatonin 2 mg daily at bedtime for sleep. 09/21: Patient had worsening confusion last night and one dose of Ativan was given with improvement of his behavior. Patient's son Flaco spent the night in the room. Consult added for neurology. Patient is noted to have some coughing today with water but was able to take his medications earlier, speech therapy consult added. Patient is currently nothing by mouth per cardiology and nursing will follow-up with cardiology SAP ANALYST regarding this. Patient has been afebrile, heart rate in the 50s, blood pressure 133/61, pulse ox 96% on room air. WBC 9.1, hemoglobin 12.7, platelets 183. Sodium 140, potassium 4.4, chloride 110, CO2 21, BUN 25 creatinine 1.07. Liver function tests were normal. Blood culture no growth at 48 hours and finalized. Wound culture from right arm reveals no growth at 48 hours repeat chest x-ray reveals no acute pulmonary process. Patient has been seen by psychiatry for delirium secondary to medications including benzodiazepines.. 09/22: Patient's son and daughter are at bedside. Son states the patient had a rough night. This pacemaker has been interrogated with no acute findings. Cardiology recommends continuing eliquis and Lopressor, Aldactone and cleared for discharge. He remains with Marmolejo catheter in place which will plan to discontinue and do a voiding trial. He is continued on Flomax. Patient has been seen by neurology for delirium unclear etiology, perhaps related to medication versus hospital. Patient to be seen by PT and OT today. Vitamin B12 455, folate 19.6. Discussed discharge planning with the family members and patient may do best at home due to his underlying dementia and confusion. PT and OT to see the patient today. Right now [facility] home care is arranged. Anticipate discharge tomorrow. 09/23: Marmolejo catheter was removed yesterday the patient is having retention, most likely will need Marmolejo replaced after next bladder scan. Patient was able to eat breakfast this morning. He has not been out of bed since he came in. PT and OT to work with him today. Due to extreme weakness, anticipate need for subacute rehab. Patient has been afebrile, heart rate 52, blood pressure 156 /69, pulse ox 94% on room air. 09/24, inpatient stay day number #7 patient is doing much better, 1 person assist on therapy rather than 2 persons assist for cath in place, for urinary retention, daughter is at bedside, she has some confusion and is still not sleeping, however he can be redirected, the daughter thinks that she might do well at home rather than the [facility], and has, members to assist 24 7, 2 people if needed. Telemetry monitoring will be discontinued today, melatonin increased to 10 mg, sitter hygiene recommended psych following, on chronic seen 0.5 mg twice a day, still on IV cefazolin and cultures, final negative growth, UA is negative, cellulitis on the arms, has improved we will switch to oral Keflex 500 mg 3 times a day, for the cellulitis. Therapy actively working with the patient, and patient's participating, no lightheadedness no dizziness, vitals are stable heart rate is in the 50s low as 48, has a pacemaker creatinine, 1.07 improved 09/25 patient is dozing in and out of sleep today, more hypersomnolent to it, has difficulty with therapies today, full, seems to be cloudy, check for urine culture, has been on Prolixin without any changes, melatonin started last night, as the patient is not sleeping, patient's son is at bedside today, cellulitis in the arms are much better, seems to decline with regards to debility, over the past 12 hours. Patient has no problems with appetite, however she chokes on food sometimes. , no current fever, vitals are stable. A modified barium swallow to be done, might need chest x-ray. No cough noted 09/26, Marmolejo catheter has been replaced again on as there is some urinary retention, over 400 mL, the daughters at bedside, they have understood to arm B safety supination at home, they have agreed on subacute short-term rehabilitation, for endurance. Patient has off-and-on confusion, anddaytime sleepiness, no new changes on treatment from psychiatry, sleep muslim is still discussed, patient's to continue on Flomax, no hematuria on Marmolejo catheter, no falls currently. Discharge, to [facility] in the next 24 hours, with subacute rehabilitation 09/27: The patient seems more alert today. He is more active as well. We will have PT and OT 3 check patient for discharge needs. At this time, subacute rehab at [facility] is the discharge plan. Due to urinary retention, consult will be added for urology to assess, and continue Flomax. No need for modified barium swallows patient was within normal limits for speech therapy evaluation. Patient remains afebrile, heart rate 59, blood pressure 124/63, pulse ox 90% on room air. Urinalysis performed yesterday revealed small amount of blood, RBCs 22. Patient will be discharged today once he is seen and evaluated by urology and discharge plan is confirmed. Patient was seen by urology with recommendations to maintain Marmolejo catheter for 2 weeks and then voiding trial at rehab, follow-up with Dr. Fernandez and continue Flomax. REVIEW OF SYSTEMS Constitutional: No fever, no chills, no night sweats. No weight change. generalized weakness, +fatigue. + daytime sleepiness. EENT: No headache. No blurred vision or double vision, no loss of vision. No loss of Hearing, no ringing in the ears, no dizziness. No nasal drainage or congestion. No epistaxis. No sore throat. Lungs: No shortness of breath, cough, no sputum production. No wheezing. Cardiovascular: No chest pain, no lower extremity edema. No palpitations. No paroxysmal nocturnal dyspnea. No orthopnea. No lightheadedness or dizziness. No syncopal episodes. Abdominal: No abdominal pain. No nausea, vomiting. No diarrhea. No constipation. No bloody or tarry stools. No loss of appetite. Genitourinary: No dysuria, increased frequency, urgency. No urinary retention. Musculoskeletal: No myalgias. + muscle weakness, + gait dysfunction, no frequent falls. No back pain. No neck pain. Integumentary: No wounds, no lesions. No rash or pruritus. No unusual bruising. No change in hair or nails. Neurologic: No aphasia. No facial droop. noted change in mentation. No head injury. No headache. No paralysis. No paresthesia. Psychiatric: No depression. No anxiety. No mood swings. Endocrine: No abnormal blood sugars. No weight change. No excessive sweating or thirst. No cold intolerance. PHYSICAL EXAMINATION Gen: This is a thin cachectic 86-year-old male. He is resting in bed appears to be comfortable. patient's son and daughter are at bedside. HEENT: Head is atraumatic, normocephalic. Pupils equal, round. Sclerae is anicteric. NECK: Supple. No JVD. No lymphadenopathy. No thyromegaly. LUNGS: Clear to auscultation. No wheezes or rhonchi. No intercostal retractions. HEART: Irregular rate and rhythm. No murmur. ABDOMEN: Soft. Bowel sounds are present. No masses. No tenderness. EXTREMITIES: No pedal edema. No calf tenderness. Left sided arm sling in place. NEUROLOGICAL: Patient is awake, alert and oriented to person. Cranial nerves 2 through 12 are grossly intact. ASSESSMENT AND PLAN 1. A. fib with RVR, Paroxysmal. Patient continued on eliquis 2.5 mg twice daily, Lopressor 25 mg twice daily. 2. 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 Status post interrogation with no acute findings. 3. Lower extremity cellulitis. Continue Kefzol. Switch to oral Keflex 4. Metabolic encephalopathy/acute delirium. CAT scan negative for intracranial abnormality.Consult with neurology appreciated. Patient has been seen by psychiatry with recommendations for Prolixin 0.5 mg twice daily and 2 mg 3 times daily as needed, melatonin. 5. History of hypertension. Continue Aldactone 12.5 mg daily 6. Remote history of tobacco use. 7. Urinary retention requiring Marmolejo catheter. Continue Flomax 0.4 mg daily. Consult with urology appreciated 8. Hematuria. Monitor CBC. 9. Generalized weakness and debility. PT and OT consults. 10. GI prophylaxis. Pepcid 11. DVT prophylaxis. SCDs and MONICA nguyen. CODE STATUS: Full code DISCHARGE PLAN Subacute rehab at [facility], awaiting insurance authorization Impression and plan of care have been directed as dictated by the signing physician. Navya Caraballo nurse practitioner acting as scribe for signing physician. Objective - Vital Signs Vital signs: Vital Signs Temp 98.5 F 09/28/21 05:00 Pulse 58 L 09/28/21 05:00 Resp 16 09/28/21 05:00 BP 146/59 09/28/21 05:00 Pulse Ox 92 L 09/28/21 05:00 FiO2 Intake & Output 09/27/21 09/28/21 09/28/21 18:59 06:59 18:59 Intake Total 120 Output Total 300 325 Balance -300 -205 Intake: Oral 120 Output: Urine 300 325 Other: Voiding Method Indwelling Catheter Indwelling Catheter - Labs CBC & Chem 7: 09/21/21 09:04 09/21/21 09:04
[2021-09-28] MEDS: CYANOCOBALAMIN 500 MCG TAB PO SCH (08:04)
[2021-09-28] MEDS: SPIRONOLACTONE 25 MG TAB PO SCH (09:27)
[2021-09-28] MEDS: FAMOTIDINE 20 MG TAB PO SCH (09:27)
[2021-09-28] MEDS: METOPROLOL TARTRATE 25 MG TAB PO SCH (09:28)
--- NOTE | 2021-09-28 10:08 | P.PN ---
Subjective Progress Note Date: 09/28/21 HISTORY OF PRESENT ILLNESS: This is a 86-year-old male with a past medical history of hypertension. He does not follow with a marketing proposal coordinator. We have been asked to see in consultation for bradycardia and atrial fibrillation with RVR. Patient was taken to the urgent care center by his son because of symptoms of dizziness. He was found to be bradycardic and then went into atrial fibrillation with heart rate in the 120s. He was started on IV Cardizem and IV heparin drip. Echocardiogram revealed an EF of 5055%, mild tricuspid regurgitation. Tachy-Bradycardia noted on telemetry a nd pacemaker was recommended On 09/20, patient underwent single chamber pacemaker implantation with Dr. Sanchez. 09/22/2021 Patient is seen and examined at bedside, he is alert, oriented x1, to person, he does not know he is in the hospital. He is having increased agitation. Neurology has evaluated the patient He denies any chest pain or shortness of breath. His vital signs are stable. Telemetry revealed patient went into atrial fibrillation overnight, his heart rates are controlled. Device was interrogated this morning, function normally, no acute findings. CT brain repeated on 09/19 with no acute intracranial abnormality 09/28/2021 Cardiology was asked to re-evaluate patient as he had an isolated episode of bradycardia in the 40s documented last night. Patient was not on telemetry at that time. Patient denies any dizziness or lightheadedness. Denies shortness of breath. Denies chest pain or pressure. Patient attempted to get out of the chair yesterday and fell and suffered a right hip fracture. He is scheduled for surgical intervention this evening with orthopedics. PHYSICAL EXAM: VITAL SIGNS: Reviewed. GENERAL: Well-developed in no acute distress. NECK: Supple. No JVD or thyromegaly LUNGS: Respirations even and unlabored. Lungs essentially clear to auscultation bilaterally. HEART: Regular rate and rhythm. S1 and S2 heard. EXTREMITIES: Normal range of motion. No clubbing or cyanosis. Peripheral pulses intact. No lower extremity edema ASSESSMENT: Dizziness Tachybradycardia Syndrome Status post pacemaker implantation on 09/20 New onset paroxysmal atrial fibrillation with RVR, [id number] score 3 S/P Fall Right femur fracture Right humeral head fracture Hypertension Alerted mental status, Agitation PLAN: Patient placed on telemetry this morning. Thus far, no significant bradycardia noted. His pacemaker appears to be capturing appropriately. Obtain chest x-ray to check pacemaker lead placement secondary to patient's fall yesterday Interrogate pacemaker Hold metoprolol (25mg BID) at this time until further workup completed Resume anticoagulation postoperatively Patient to undergo surgical intervention this evening with orthopedics. No absolute contraindications from a cardiac standpoint Further recommendations pending patient's course Nurse practitioner note has been reviewed by physician. Signing provider agrees with the documented findings, assessment, and plan of care. Objective - Vital Signs Vital signs: Vital Signs Temp 98.5 F 09/28/21 05:00 Pulse 60 09/28/21 08:04 Resp 16 09/28/21 05:00 BP 151/65 09/28/21 08:04 Pulse Ox 92 L 09/28/21 05:00 FiO2 Intake & Output 09/27/21 09/28/21 09/28/21 18:59 06:59 18:59 Intake Total 120 Output Total 300 325 Balance -300 -205 Intake: Oral 120 Output: Urine 300 325 Other: Voiding Method Indwelling Catheter Indwelling Catheter - Labs CBC & Chem 7: 09/21/21 09:04 09/21/21 09:04
--- NOTE | 2021-09-28 10:14 | P.PN ---
Subjective Progress Note Date: 09/28/21 HISTORY OF PRESENT ILLNESS This is a pleasant 86 years old male with past medical history of hypertension, not on medication. Patient presents because of dizziness started this morning without syncope or fa ll. Patient states that 4:00 in the morning he started feeling dizzy associated with sweating, dizziness and some headache and lightheadedness he denies chest pain or dyspnea No syncope, no change in urine or bowel habits, no dysuria. Also he fell on his right arm was some abrasion about 2 days ago. No evidence of cellulitis. Patient went to urgent care where his heart rate was down to 70s and was sent to the emergency room Currently heart rate is 52-62, rest of vitals are stable. He denies smoking, alcohol or illicit drugs Labs including CBC, INR, BMP, liver enzymes and troponin are unremarkable. EKG showing sinus rhythm at 62 with PVCs Patient was admitted with cardiology consultation 09/18/2021 Patient today was more confused and needed to be closely monitored, at first we given Seroquel but that did not, hum down so we have to give him Haldol when necessary, patient feels better. Because his heart rate was abnormal, bradycardia on admission. On developed A. fib and RVR cardiology starting him on heparin and Cardizem drip. Also he has evidence of cellulitis on his abrasions on both right forearm and right leg and patient was started on cefazolin Because of his agitation and confusion her CT of the brain which is pending now, could not be done earlier because of his agitation. His other labs are reviewed and he has leukocytosis of 14.7, rest of vitals looks stable and patient is afebrile. TSH a 3.3. Urinalysis is negative. Echocardiogram showed ejection fraction of 50-55%. 09/19: Patient is more confused today, family members are at bedside. He has a Bender catheter for urinary retention. Heparin was placed on hold due to hematuria. He is off Cardizem drip.repeat blood work reveals WBC 10.7, hemoglobin 12.8, platelet count 173. Chloride 108, CO2 25, BUN 23 creatinine 1.2. Urinalysis revealed small amount of blood but no sign of infection. CAT scan of the brain revealed no acute intracranial abnormality or gross space- occupying lesion. Carotid ultrasound revealed plaquing without significant flow limiting stenosis internal carotid arteries. Some moderate stenosis of the external carotid arteries. 09/20: Patient has developed hematuria again overnight. He cardiology is planning for pacemaker insertion today. Family have determined patient to be full CODE STATUS. Discussed discharge planning with the family and they are agreeable to [facility] for subacute rehab which will plan for the end of this week. Order placed with social work to follow-up. Heart rate mostly running in the 40s but did dip into the 30s, blood pressure 128/53, pulse ox 96% on room air, afebrile. Repeat blood work reveals chloride 110, BUN 27 creatinine 1.1. Blood sugar 102. Patient is also been seen by psychiatry for delirium secondary to medications including benzodiazepines. Recommendations are for delirium precautions and the following medication changes: Avoid anticholinergics and benzodiazepines. Prolixin 1 mg twice a day and as needed for agitation, m elatonin 2 mg daily at bedtime for sleep. 09/21: Patient had worsening confusion last night and one dose of Ativan was given with improvement of his behavior. Patient's son Flaco spent the night in the room. Consult added for neurology. Patient is noted to have some coughing today with water but was able to take his medications earlier, speech therapy consult added. Patient is currently nothing by mouth per cardiology and nursing will follow-up with cardiology [employer] regarding this. Patient has been afebrile, heart rate in the 50s, blood pressure 133/61, pulse ox 96% on room air. WBC 9.1, hemoglobin 12.7, platelets 183. Sodium 140, potassium 4.4, chloride 110, CO2 21, BUN 25 creatinine 1.07. Liver function tests were normal. Blood culture no growth at 48 hours and finalized. Wound culture from right arm reveals no growth at 48 hours repeat chest x-ray reveals no acute pulmonary process. Patient has been seen by psychiatry for delirium secondary to medications including benzodiazepines.. 09/22: Patient's son and daughter are at bedside. Son states the patient had a rough night. This pacemaker has been interrogated with no acute findings. Cardiology recommends continuing eliquis and Lopressor, Aldactone and cleared for discharge. He remains with Bender catheter in place which will plan to discontinue and do a voiding trial. He is continued on Flomax. Patient has been seen by neurology for delirium unclear etiology, perhaps related to medication versus hospital. Patient to be seen by PT and OT today. Vitamin B12 455, folate 19.6. Discussed discharge planning with the family members and patient may do best at home due to his underlying dementia and confusion. PT and OT to see the patient today. Right now [facility] home care is arranged. Anticipate discharge tomorrow. 09/23: Bender catheter was removed yesterday the patient is having retention, most likely will need Bender replaced after next bladder scan. Patient was able to eat breakfast this morning. He has not been out of bed since he came in. PT and OT to work with him today. Due to extreme weakness, anticipate need for subacute rehab. Patient has been afebrile, heart rate 52, blood pressure 156 /69, pulse ox 94% on room air. 09/24, inpatient stay day number #7 patient is doing much better, 1 person assist on therapy rather than 2 persons assist for cath in place, for urinary retention, daughter is at bedside, she has some confusion and is still not sleeping, however he can be redirected, the daughter thinks that she might do well at home rather than the assisted, and has, members to assist 24 7, 2 people if needed. Telemetry monitoring will be discontinued today, melatonin increased to 10 mg, sitter hygiene recommended psych following, on chronic seen 0.5 mg twice a day, still on IV cefazolin and cultures, final negative growth, UA is negative, cellulitis on the arms, has improved we will switch to oral Keflex 500 mg 3 times a day, for the cellulitis. Therapy actively working with the patient, and patient's participating, no lightheadedness no dizziness, vitals are stable heart rate is in the 50s low as 48, has a pacemaker creatinine, 1.07 improved 09/25 patient is dozing in and out of sleep today, more hypersomnolent to it, has difficulty with therapies today, full, seems to be cloudy, check for urine culture, has been on Prolixin without any changes, melatonin started last night, as the patient is not sleeping, patient's son is at bedside today, cellulitis in the arms are much better, seems to decline with regards to debility, over the past 12 hours. Patient has no problems with appetite, however she chokes on food sometimes. , no current fever, vitals are stable. A modified barium swallow to be done, might need chest x-ray. No cough noted 09/26, Bender catheter has been replaced again on as there is some urinary retention, over 400 mL, the daughters at bedside, they have understood to arm B safety supination at home, they have agreed on subacute short-term rehabilitation, for endurance. Patient has off-and-on confusion, anddaytime sleepiness, no new changes on treatment from psychiatry, sleep worship is still discussed, patient's to continue on Flomax, no hematuria on Bender catheter, no falls currently. Discharge, to [facility] in the next 24 hours, with subacute rehabilitation 09/27: The patient seems more alert today. He is more active as well. We will have PT and OT 3 check patient for discharge needs. At this time, subacute rehab at [facility] is the discharge plan. Due to urinary retention, consult will be added for urology to assess, and continue Flomax. No need for modified barium swallows patient was within normal limits for speech therapy evaluation. Patient remains afebrile, heart rate 59, blood pressure 124/63, pulse ox 90% on room air. Urinalysis performed yesterday revealed small amount of blood, RBCs 22. Patient will be discharged today once he is seen and evaluated by urology and discharge plan is confirmed. Patient was seen by urology with recommendations to maintain Bender catheter for 2 weeks and then voiding trial at rehab, follow-up with Dr. Fernandez and continue Flomax. 09/28: Patient was seen by urology last evening with recommendations for continuing bender for 2 weeks, then discontinue with voiding trial, follow up with Dr. Fernandez and continue Flomax. Unfortunately, patient was found by staff on the floor in front of recliner. He had taken off chair alarm. X-rays found right femur fracture and right humeral neck and proximal shaft with some impaction. Consult with orthopedics added and patient is scheduled for closed reduction with intertrochanteric nail. Sling ordered for right humerus fracture with no plan for surgical intervention. Patient is medically cleared for surgery in tervention. Patient's son is at bedside and updated. Tylenol #3 added for pain control. Patient noted to have bradycardia documented down to 43 and asked cardiology to re-evaluate settings on pacemaker. REVIEW OF SYSTEMS Constitutional: No fever, no chills, no night sweats. No weight change. generalized weakness, +fatigue. + daytime sleepiness. EENT: No headache. No blurred vision or double vision, no loss of vision. No loss of Hearing, no ringing in the ears, no dizziness. No nasal drainage or congestion. No epistaxis. No sore throat. Lungs: No shortness of breath, cough, no sputum production. No wheezing. Cardiovascular: No chest pain, no lower extremity edema. No palpitations. No paroxysmal nocturnal dyspnea. No orthopnea. No lightheadedness or dizziness. No syncopal episodes. Abdominal: No abdominal pain. No nausea, vomiting. No diarrhea. No constipa tion. No bloody or tarry stools. No loss of appetite. Genitourinary: No dysuria, increased frequency, urgency. No urinary retention. Musculoskeletal: No myalgias. + muscle weakness, + gait dysfunction, no frequent falls. No back pain. No neck pain. Right hip and right upper arm pain. Integumentary: No wounds, no lesions. No rash or pruritus. No unusual bruising. No change in hair or nails. Neurologic: No aphasia. No facial droop. noted change in mentation. No head injury. No headache. No paralysis. No paresthesia. Psychiatric: No depression. No anxiety. No mood swings. Endocrine: No abnormal blood sugars. No weight change. No excessive sweating or thirst. No cold intolerance. PHYSICAL EXAMINATION Gen: This is a thin cachectic 86-year-old male. He is resting in bed appears to be comfortable. patient's son at bedside. HEENT: Head is atraumatic, normocephalic. Pupils equal, round. Sclerae is anicteric. NECK: Supple. No JVD. No lymphadenopathy. No thyromegaly. LUNGS: Clear to auscultation. No wheezes or rhonchi. No intercostal retractions. HEART: Irregular rate and rhythm. No murmur. ABDOMEN: Soft. Bowel sounds are present. No masses. No tenderness. EXTREMITIES: No pedal edema. No calf tenderness. NEUROLOGICAL: Patient is awake, alert and oriented to person. Cranial nerves 2 through 12 are grossly intact. ASSESSMENT AND PLAN 1. A. fib with RVR, Paroxysmal. Patient continued on eliquis 2.5 mg twice daily, Lopressor 25 mg twice daily. 2. 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 Status post interrogation with no acute findings. 3. Lower extremity cellulitis. Completed antibiotics. 4. Metabolic encephalopathy/acute delirium. CAT scan negative for intracranial abnormality.Consult with neurology appreciated. Patient has been seen by psychiatry with recommendations for Prolixin 0.5 mg twice daily and 2 mg 3 times daily as needed, melatonin. 5. Acute right femur fracture, acute fracture right humerus with impaction. Consult with orthopedics. Plan for surgical intervention on the femur this evening. Patient is medically cleared for surgery intervention. 6. History of hypertension. Continue Aldactone 12.5 mg daily 7. Remote history of tobacco use. 8. Urinary retention requiring Bender catheter. Continue Flomax 0.4 mg daily. Consult with urology appreciated 9. Hematuria, resolved. 10. Generalized weakness and debility. PT and OT consults. 11. GI prophylaxis. Pepcid 12. DVT prophylaxis. SCDs and MONICA nguyen. CODE STATUS: Full code DISCHARGE PLAN Subacute rehab at [facility], awaiting insurance authorization Impression and plan of care have been directed as dictated by the signing physician. Navya Caraballo nurse practitioner acting as scribe for signing physician. Objective - Vital Signs Vital signs: Vital Signs Temp 98.5 F 09/28/21 05:00 Pulse 60 09/28/21 08:04 Resp 16 09/28/21 05:00 BP 151/65 09/28/21 08:04 Pulse Ox 92 L 09/28/21 05:00 FiO2 Intake & Output 09/27/21 09/28/21 09/28/21 18:59 06:59 18:59 Intake Total 120 Output Total 300 325 Balance -300 -205 Intake: Oral 120 Output: Urine 300 325 Other: Voiding Method Indwelling Catheter Indwelling Catheter - Labs CBC & Chem 7: 09/21/21 09:04 09/21/21 09:04
--- NOTE | 2021-09-28 11:03 | P.CNOR ---
History of Present Illness - [facility] Consult date: 09/28/21 Consult reason: fracture (Right hip, right proximal humerus fractures.) History of present illness: This is an 86-year-old gentleman who was admitted to [facility] on 09/17/2021 with bradycardia and syncopal episodes. The patient has been treated and a pacemaker was placed. He was ready for discharge on 09/27/2021 when he was found on the floor by nursing staff. He had been up in a chair stan or to the incident. The fall was unwitnessed. X-rays taken revealed a comminuted intertrochanteric fracture of the right hip a nondisplaced proximal humerus fracture of the right shoulder. We are consulted for orthopedic evaluation. Past Medical History Past Medical History: Hypertension History of Any Multi-Drug Resistant Organisms: None Reported Past Surgical History: Hernia Repair Additional Past Surgical History / Comment(s): bilateral cataract surgery Past Anesthesia/Blood Transfusion Reactions: No Reported Reaction Past Psychological History: No Psychological Hx Reported Smoking Status: Former smoker Past Alcohol Use History: None Reported Past Drug Use History: None Reported Medications and Allergies Home Medications Medication Instructions Recorded Confirmed Type Mupirocin 2% Oint [Bactroban 2% 1 applic TOPICAL BID 09/17/21 09/17/21 History Oint] Spironolactone 12.5 mg PO DAILY 09/17/21 09/17/21 History Apixaban [Eliquis] 2.5 mg PO BID 30 Days #60 tab 09/19/21 Rx Cyanocobalamin [Vitamin B-12] 1,000 mcg PO DAILY #0 tab 09/27/21 Rx Melatonin 10 mg PO DAILY@1999 tab 09/27/21 Rx Metoprolol Tartrate [Lopressor] 25 mg PO BID #60 tab 09/27/21 Rx Tamsulosin [Flomax] 0.4 mg PO PC-SUPPER #30 cap 09/27/21 Rx fluPHENAZine [Prolixin] 0.5 mg PO BID #30 tab 09/27/21 Rx Acetaminophen-Codeine 300-30mg 1 each PO Q6HR PRN #12 tab 09/28/21 Rx [Tylenol w/codeine #3] Allergies Allergy/AdvReac Type Severity Reaction Status Date / Time No Known Allergies Allergy Verified 09/17/21 12:50 Physical Examination This is a pleasant 86-year-old male in no acute distress. He has alert with some confusion. His son is present at bedside. Exam of the head neck reveal no obvious deformity. He is moving his cervical spine well without difficulty or pain. Exam of the upper extremities reveals a sling in place to the right arm. There is mild soft tissue swelling about the shoulder. He has full finger motion bilaterally. Neurovascular status the upper extremities is intact. Exam of the lower extremities reveals shortening and external rotation to the right leg. He has full foot and ankle motion bilaterally. Neurovascular status to the lower extremities is intact. Results X-rays of the pelvis reveals a comminuted intertrochanteric fracture of the right hip. X-rays of the right shoulder reveals an oblique, nondisplaced fracture of the proximal humerus. - Labs Labs: H & H 09/17/21 09/18/21 09/19/21 Range/Units 10:32 10:20 05:57 Hgb 12.9 L 13.5 12.8 L (13.0-17.5) gm/dL Hct 38.6 L 41.6 37.8 L (39.0-53.0) % 09/21/21 Range/Units 09:04 Hgb 12.7 L (13.0-17.5) gm/dL Hct 39.8 (39.0-53.0) % Coagulation 09/17/21 09/18/21 09/19/21 Range/Units 10:32 10:20 05:57 INR 1.0 1.1 1.0 (<1.2) Result Diagrams: 09/21/21 09:04 09/21/21 09:04 Assessment and Plan (1) Closed intertrochanteric fracture of right hip Current Visit: Yes Status: Acute Code(s): S72.141A - DISPLACED INTERTROCHANTERIC FRACTURE OF RIGHT FEMUR, INIT SNOMED Code(s): 10698665 (2) Fracture of proximal end of right humerus Current Visit: Yes Status: Acute Code(s): S42.201A - UNSP FRACTURE OF UPPER END OF RIGHT HUMERUS, INIT SNOMED Code(s): 839472370 (3) Bradycardia Current Visit: Yes Status: Acute Code(s): R00.1 - BRADYCARDIA, UNSPECIFIED SNOMED Code(s): 39174575 Plan: The clinical and x-ray findings are discussed with the patient and his son. It is recommended that he undergo closed reduction with insertion of intertrochant ti nail of the right hip. The procedures been discussed in detail including the possible risks and outcomes. After discussion and consideration the patient and his son elect to proceed with the procedure today. Regarding the shoulder it is recommended he be treated in a sling. He likely will require inpatient rehab postoperatively.
--- NOTE | 2021-09-28 11:30 | XR ---
EXAMINATION TYPE: XR chest 1V portable DATE OF EXAM: 09/28/2021 CLINICAL HISTORY: Difficulty breathing progress study. TECHNIQUE: Single AP portable frontal view of the chest is obtained. COMPARISON: Chest x-ray from September 21, 2021 FINDINGS: Single lead pacemaker projects over the right ventricle similar to prior. Chronic parenchy mal changes without pneumothorax seen bilaterally. Right basilar opacity noted. Consider developing a cute infiltrate and/or atelectasis. Suspect tiny left pleural effusion. Stable mild cardiomegaly with atherosclerotic and ectatic thoracic aorta. Osseous structures are demineralized. Comminuted slightl y displaced fracture proximal right humerus redemonstrated correlating with right shoulder x-ray one day earlier. IMPRESSION: As above.
[2021-09-28 12:12] LABS: INR 1.1 (<1.2); Prothrombin Time 11.4 sec (9.0-12.0)
[2021-09-28] MEDS: TAMSULOSIN 0.4 MG CAP.ER.24H PO SCH (14:50)
[2021-09-28] MEDS ORDERED: ONDANSETRON 4 MG/2 ML VIAL ONE (15:56)
[2021-09-28] MEDS ORDERED: LACTATED RINGERS 1,000 ML IV ONE (16:33)
[2021-09-28] MEDS ORDERED: NALOXONE 0.4 MG/ML 1 ML VIAL IV PRN (16:48)
[2021-09-28] MEDS ORDERED: ONDANSETRON 4 MG/2 ML VIAL IVP ONE (16:50)
[2021-09-28] MEDS ORDERED: PROPOFOL 10 MG/ML 20 ML VIAL IV ONE (16:54)
[2021-09-28] MEDS ORDERED: LIDOCAINE 2% INJ 20 MG/ML (2 ML VIAL) ONE (16:54)
[2021-09-28] MEDS ORDERED: fentaNYL (PF) 50 MCG/ML 2 ML AMP ONE (16:54)
[2021-09-28] MEDS ORDERED: WATER FOR INJECTION, STERILE 10 ML VIAL IV ONE (16:54)
[2021-09-28] MEDS ORDERED: ePHEDrine 50 MG/ML 1 ML VIAL ONE (16:54)
[2021-09-28] MEDS ORDERED: SUCCINYLCHOLINE CHLORIDE 100 MG/5 ML SYR IV ONE (16:54)
[2021-09-28] MEDS ORDERED: HYDROmorphone 0.5 MG/0.5 ML SYRINGE IVP PRN ×2 (16:55)
[2021-09-28] MEDS ORDERED: ONDANSETRON 4 MG/2 ML VIAL IVP PRN (16:55)
--- NOTE | 2021-09-28 17:55 | P.OP ---
Date of Procedure: 09/28/21 Preoperative Diagnosis: Four-part intertrochanteric fracture right hip Postoperative Diagnosis: 4 part intratrochanteric fracture right hip Procedure(s) Performed: Close reduction and intramedullary nailing right hip Implants: [employer] Intertan nail 125, 11.5 mm x 18 cm. [employer] Intertan integrated-interlocking lag screw, 95 mm lag screw, 90 mm compression screw. [employer] L-P screw, 5.0 mm x 35 mm. Anesthesia: SHALOM Surgeon: Ozzie Brennan Estimated Blood Loss (ml): 100 Pathology: none sent Condition: stable Disposition: PACU Indications for Procedure: This is an 86-year-old gentleman that fell while in the hospital last night. He sustained a four-part intertrochanteric fracture of his right hip as well as a right proximal humerus fracture. After discussing the surgical nonsurgical treatment options with him and his family at length, I recommended a closed medullary nailing of his right hip. Informed consent was obtained. Operative Findings: The operative findings are consistent with a closed four-part intertrochanteric fracture of the right hip Description of Procedure: The patient was seen in the preoperative area, consent was reviewed, and the operative site was marked with a skin marker. The surgical procedure was discussed at length with both the patient and the family at the bedside. All questions were answered to the best of my ability. The patient was brought to the operating room and placed on the fracture table. Anesthesia was administered by the anesthesia department. 2 g of Ancef were administered intravenously. The patient was placed supine on the fracture table with the fractured extremity in traction boot. The other extremity was placed in a well leg briscoe and the bony prominences were well padded. A universal timeout was then performed which confirmed the patient's name, surgical site, ALLERGIES, and consent. Fracture reduction was performed with a traction and abduction maneuver which was confirmed with fluoroscopy, both AP and lateral views.. After reduction was performed, the extremity was then prepped with ChloraPrep solution and draped in the usual sterile fashion. Utilizing fluoroscopy to identify the tip of the greater trochanter, a 3 cm longitudinal incision was made just proximal to the greater trochanter. Incision was carried through the fascia to the tip of the greater trochanter. Utilizing a curved awl, the entry point was created at the tip of the greater trochanter and centralized in the AP and lateral planes. These locations were confirmed by fluoroscopy. A guidewire was then inserted down the medullary canal. Sequentially reaming of the femur was performed to 13 mm distally and 17 mm proximally with the channel reamer. After reaming, appropriate size nail was inserted over the guidewire. The nail was inserted to the appropriate depth and the guidewire was removed. Placement of the billy was confirmed with both AP and lateral fluoroscopic views. The lag screw drill sleeve was placed in the jig and a small skin incision was made on the lateral aspect of the leg and the lag screw drill sleeve was locked into the guide. The 3.2 mm guide pin sleeve was inserted through the lag screw drill sleeve down to bone. A 3.2 mm distally threaded guidewire was inserted through the guide pin sleeve. The guidewire was inserted in the desired position in the femoral head, both anterior and posterior. The lag screw length cage was inserted over the guidepin to the back of the lag screw drill sleeve. Lag screw length was then measured from the cage. Next, the 7.0 mm compression screw starter drill was inserted in the lag screw drill sleeve beneath the guidepin. The compression screw starter drill was advanced under power until it abutted the back and of the lag screw drill sleeve. The 7.0 mm compression screw drill was inserted through the lag screw drill sleeve into the hole created by the compression screw starter drill. This was advanced under fluoroscopy to a depth 5 mm less and the measurement taken for the guidepin. The compression screw drill was removed and the antirotation bar was inserted into the same hole. The 3.2 mm guide pin sleeve was then removed from the drill guide. The lag screw drill was then inserted to a depth that was measured by the lag screw gauge. This was done under fluoroscopy. The lag screw was inserted over the guidewire to the appropriate depth using fluoroscopy. Traction was then released. The antirotation bar was then removed and the compression screw was advanced through the lag screw drill sleeve beneath the lag screw. This was advanced to the appropriate compression was achieved. The proximal drill guide was then removed and the distal drill guide was then inserted in the jig. Skin incision was made down to bone and the distal drill guide was then placed. Distal hole was then drilled with a 4.0 mm drill and measured to the appropriate depth. Distal screw was then placed. The entire assembly was then removed and final fluoroscopic x-rays were obtained. The wounds were then irrigated copiously with saline solution. Fascia was closed with 0-Vicryl. Subcutaneous tissues were closed with 2-0 Vicryl and the skin was closed with dedrick. Sterile dressings were applied. The patient was transported to the recovery room in stable condition.
--- NOTE | 2021-09-28 18:26 | XR ---
EXAMINATION TYPE: XR Hip Complete RT DATE OF EXAM: 09/28/2021 COMPARISON: NONE HISTORY: Hip fracture TECHNIQUE: 3 views FINDINGS: There is intramedullary billy and transverse screws fixing the intertrochanteric fracture of the right femur. Components are in good position. IMPRESSION: Satisfactory reduction of the fracture. No complicating process seen.
[2021-09-28] MEDS: SODIUM CHLORIDE 0.9% 1,000 ML IV SCH ×3 (20:26→21:20)
[2021-09-28] MEDS: MELATONIN 5 MG TABLET PO SCH ×2 (20:26→21:09)
[2021-09-28 20:36] LABS: Basophils % (A) 0 %; Eosinophils # (A) 0.2 k/uL (0-0.7); Eosinophils % (A) 1 %; HCT 31.5 % (39.0-53.0); HGB 10.6 gm/dL (13.0-17.5); Lymphocytes # (A) 0.3 k/uL (1.0-4.8); Lymphocytes % (A) 2 %; MCH 31.8 pg (25.0-35.0); MCHC 33.7 g/dL (31.0-37.0); MCV 94.1 fL (80.0-100.0); Mean Platelet Volume 7.2; Monocytes # (A) 0.6 k/uL (0-1.0); Monocytes % (A) 4 %; Neutrophils % (A) 93 %; Platelet Count 210 k/uL (150-450); RBC 3.35 m/uL (4.30-5.90); RDW 12.9 % (11.5-15.5); WBC 16.2 k/uL (3.8-10.6)
[2021-09-28] MEDS: HYDROmorphone 0.5 MG/0.5 ML SYRINGE IVP PRN (21:09)
[2021-09-28] MEDS: SENNOSIDES-DOCUSATE SODIUM 1 EACH TAB PO SCH (21:09)
[2021-09-29] MEDS: HYDROmorphone 0.5 MG/0.5 ML SYRINGE IVP PRN (05:05)
[2021-09-29] MEDS: NALOXONE 0.4 MG/ML 1 ML VIAL IV PRN ×2 (05:22→05:33)
[2021-09-29 05:29] LABS: Glucose,Whole Blood 148 mg/dL (70-110)
--- NOTE | 2021-09-29 06:32 | FL ---
EXAMINATION TYPE: FL guidance operating room DATE OF EXAM: 09/28/2021 CLINICAL HISTORY: Right the fracture TECHNIQUE: Fluoroscopy. COMPARISON: None. FINDINGS: Fluoroscopic guidance was provided during right hip open reduction internal fixation proce dure performed by Dr. Brennan. A total of 40 seconds of fluoroscopic time was utilized during the p rocedure and 3 spot images was acquired. IMPRESSION: As Above.
[2021-09-29 07:48] LABS: HCT 28.1 % (39.0-53.0); HGB 9.5 gm/dL (13.0-17.5); MCH 32.1 pg (25.0-35.0); MCHC 33.7 g/dL (31.0-37.0); MCV 95.2 fL (80.0-100.0); Mean Platelet Volume 7.6; Platelet Count 176 k/uL (150-450); RBC 2.95 m/uL (4.30-5.90); RDW 13.1 % (11.5-15.5); WBC 14.4 k/uL (3.8-10.6)
[2021-09-29 08:04] LABS: ALT 10 U/L (4-49); AST 27 U/L (17-59); African American GFR (CKD) 61 (>60 ml/min/1.73 sqM); Albumin 2.6 g/dL (3.5-5.0); Albumin/Globulin Ratio 1.3; Alkaline Phosphatase 50 U/L (38-126); Anion Gap 4 mmol/L; Blood Urea Nitrogen 34 mg/dL (9-20); Calcium 7.4 mg/dL (8.4-10.2); Carbon Dioxide 23 mmol/L (22-30); Chloride 108 mmol/L (98-107); Glucose 138 mg/dL (74-99); Non-African American GFR(CKD) 53 (>60 ml/min/1.73 sqM); Sodium 135 mmol/L (137-145); Total Bilirubin 0.9 mg/dL (0.2-1.3); Total Protein 4.6 g/dL (6.3-8.2)
[2021-09-29] MEDS: CYANOCOBALAMIN 500 MCG TAB PO SCH (08:47)
[2021-09-29] MEDS: FAMOTIDINE 20 MG TAB PO SCH (08:47)
[2021-09-29] MEDS: APIXABAN 2.5 MG TABLET PO SCH ×2 (08:47→20:39)
[2021-09-29] MEDS: SPIRONOLACTONE 25 MG TAB PO SCH (08:47)
--- NOTE | 2021-09-29 09:58 | P.PN ---
Subjective Progress Note Date: 09/29/21 HISTORY OF PRESENT ILLNESS This is a pleasant 86 years old male with past medical history of hypertension, not on medication. Patient presents because of dizziness started this morning without syncope or fa ll. Patient states that 4:00 in the morning he started feeling dizzy associated with sweating, dizziness and some headache and lightheadedness he denies chest pain or dyspnea No syncope, no change in urine or bowel habits, no dysuria. Also he fell on his right arm was some abrasion about 2 days ago. No evidence of cellulitis. Patient went to urgent care where his heart rate was down to 70s and was sent to the emergency room Currently heart rate is 52-62, rest of vitals are stable. He denies smoking, alcohol or illicit drugs Labs including CBC, INR, BMP, liver enzymes and troponin are unremarkable. EKG showing sinus rhythm at 62 with PVCs Patient was admitted with cardiology consultation 09/18/2021 Patient today was more confused and needed to be closely monitored, at first we given Seroquel but that did not, hum down so we have to give him Haldol when necessary, patient feels better. Because his heart rate was abnormal, bradycardia on admission. On developed A. fib and RVR cardiology starting him on heparin and Cardizem drip. Also he has evidence of cellulitis on his abrasions on both right forearm and right leg and patient was started on cefazolin Because of his agitation and confusion her CT of the brain which is pending now, could not be done earlier because of his agitation. His other labs are reviewed and he has leukocytosis of 14.7, rest of vitals looks stable and patient is afebrile. TSH a 3.3. Urinalysis is negative. Echocardiogram showed ejection fraction of 50-55%. 09/19: Patient is more confused today, family members are at bedside. He has a Bender catheter for urinary retention. Heparin was placed on hold due to hematuria. He is off Cardizem drip.repeat blood work reveals WBC 10.7, hemoglobin 12.8, platelet count 173. Chloride 108, CO2 25, BUN 23 creatinine 1.2. Urinalysis revealed small amount of blood but no sign of infection. CAT scan of the brain revealed no acute intracranial abnormality or gross space- occupying lesion. Carotid ultrasound revealed plaquing without significant flow limiting stenosis internal carotid arteries. Some moderate stenosis of the external carotid arteries. 09/20: Patient has developed hematuria again overnight. He cardiology is planning for pacemaker insertion today. Family have determined patient to be full CODE STATUS. Discussed discharge planning with the family and they are agreeable to [facility] for subacute rehab which will plan for the end of this week. Order placed with social work to follow-up. Heart rate mostly running in the 40s but did dip into the 30s, blood pressure 128/53, pulse ox 96% on room air, afebrile. Repeat blood work reveals chloride 110, BUN 27 creatinine 1.1. Blood sugar 102. Patient is also been seen by psychiatry for delirium secondary to medications including benzodiazepines. Recommendations are for delirium precautions and the following medication changes: Avoid anticholinergics and benzodiazepines. Prolixin 1 mg twice a day and as needed for agitation, m elatonin 2 mg daily at bedtime for sleep. 09/21: Patient had worsening confusion last night and one dose of Ativan was given with improvement of his behavior. Patient's son Flaco spent the night in the room. Consult added for neurology. Patient is noted to have some coughing today with water but was able to take his medications earlier, speech therapy consult added. Patient is currently nothing by mouth per cardiology and nursing will follow-up with cardiology GALVANIZER ZINC regarding this. Patient has been afebrile, heart rate in the 50s, blood pressure 133/61, pulse ox 96% on room air. WBC 9.1, hemoglobin 12.7, platelets 183. Sodium 140, potassium 4.4, chloride 110, CO2 21, BUN 25 creatinine 1.07. Liver function tests were normal. Blood culture no growth at 48 hours and finalized. Wound culture from right arm reveals no growth at 48 hours repeat chest x-ray reveals no acute pulmonary process. Patient has been seen by psychiatry for delirium secondary to medications including benzodiazepines.. 09/22: Patient's son and daughter are at bedside. Son states the patient had a rough night. This pacemaker has been interrogated with no acute findings. Cardiology recommends continuing eliquis and Lopressor, Aldactone and cleared for discharge. He remains with Bender catheter in place which will plan to discontinue and do a voiding trial. He is continued on Flomax. Patient has been seen by neurology for delirium unclear etiology, perhaps related to medication versus hospital. Patient to be seen by PT and OT today. Vitamin B12 455, folate 19.6. Discussed discharge planning with the family members and patient may do best at home due to his underlying dementia and confusion. PT and OT to see the patient today. Right now [facility] home care is arranged. Anticipate discharge tomorrow. 09/23: Bender catheter was removed yesterday the patient is having retention, most likely will need Bender replaced after next bladder scan. Patient was able to eat breakfast this morning. He has not been out of bed since he came in. PT and OT to work with him today. Due to extreme weakness, anticipate need for subacute rehab. Patient has been afebrile, heart rate 52, blood pressure 156 /69, pulse ox 94% on room air. 09/24, inpatient stay day number #7 patient is doing much better, 1 person assist on therapy rather than 2 persons assist for cath in place, for urinary retention, daughter is at bedside, she has some confusion and is still not sleeping, however he can be redirected, the daughter thinks that she might do well at home rather than the alf, and has, members to assist 24 7, 2 people if needed. Telemetry monitoring will be discontinued today, melatonin increased to 10 mg, sitter hygiene recommended psych following, on chronic seen 0.5 mg twice a day, still on IV cefazolin and cultures, final negative growth, UA is negative, cellulitis on the arms, has improved we will switch to oral Keflex 500 mg 3 times a day, for the cellulitis. Therapy actively working with the patient, and patient's participating, no lightheadedness no dizziness, vitals are stable heart rate is in the 50s low as 48, has a pacemaker creatinine, 1.07 improved 09/25 patient is dozing in and out of sleep today, more hypersomnolent to it, has difficulty with therapies today, full, seems to be cloudy, check for urine culture, has been on Prolixin without any changes, melatonin started last night, as the patient is not sleeping, patient's son is at bedside today, cellulitis in the arms are much better, seems to decline with regards to debility, over the past 12 hours. Patient has no problems with appetite, however she chokes on food sometimes. , no current fever, vitals are stable. A modified barium swallow to be done, might need chest x-ray. No cough noted 09/26, Bender catheter has been replaced again on as there is some urinary retention, over 400 mL, the daughters at bedside, they have understood to arm B safety supination at home, they have agreed on subacute short-term rehabilitation, for endurance. Patient has off-and-on confusion, anddaytime sleepiness, no new changes on treatment from psychiatry, sleep worship is still discussed, patient's to continue on Flomax, no hematuria on Bender catheter, no falls currently. Discharge, to [facility] in the next 24 hours, with subacute rehabilitation 09/27: The patient seems more alert today. He is more active as well. We will have PT and OT 3 check patient for discharge needs. At this time, subacute rehab at [facility] is the discharge plan. Due to urinary retention, consult will be added for urology to assess, and continue Flomax. No need for modified barium swallows patient was within normal limits for speech therapy evaluation. Patient remains afebrile, heart rate 59, blood pressure 124/63, pulse ox 90% on room air. Urinalysis performed yesterday revealed small amount of blood, RBCs 22. Patient will be discharged today once he is seen and evaluated by urology and discharge plan is confirmed. Patient was seen by urology with recommendations to maintain Bender catheter for 2 weeks and then voiding trial at rehab, follow-up with Dr. Fernandez and continue Flomax. 09/28: Patient was seen by urology last evening with recommendations for continuing bender for 2 weeks, then discontinue with voiding trial, follow up with Dr. Fernandez and continue Flomax. Unfortunately, patient was found by staff on the floor in front of recliner. He had taken off chair alarm. X-rays found right femur fracture and right humeral neck and proximal shaft with some impaction. Consult with orthopedics added and patient is scheduled for closed reduction with intertrochanteric nail. Sling ordered for right humerus fracture with no plan for surgical intervention. Patient is medically cleared for surgery in tervention. Patient's son is at bedside and updated. Tylenol #3 added for pain control. Patient noted to have bradycardia documented down to 43 and asked cardiology to re-evaluate settings on pacemaker. 09/29: Yesterday, patient underwent closed reduction and IM nail right hip with Dr. Brennan. Patient is seen on the [facility] floor. Patient has been afebrile, heart rate 88, blood pressure 102/52, pulse ox 97% on 3 L nasal cannula. The patient is seen today sleeping this. A team was called this morning after patient received Dilaudid, status post Narcan. Due to blood pressure being low, Lopressor was also discontinued Dilaudid discontinued. Patient to have only Tylenol 3 for pain. Chest x-ray from 09/28 revealed chronic changes bilaterally. Right basilar opacities. Consider developing acute infiltrate or atelectasis. Suspects tiny pleural effusion. Stable mild cardiomegaly with atherosclerotic and ectatic thoracic aorta. Discharge plan remains for subacute rehab at [facility] and will hope for tomorrow depending on patient's progress. REVIEW OF SYSTEMS Constitutional: No fever, no chills, no night sweats. No weight change. generalized weakness, +fatigue. + daytime sleepiness. EENT: No headache. No blurred vision or double vision, no loss of vision. No loss of Hearing, no ringing in the ears, no dizziness. No nasal drainage or congestion. No epistaxis. No sore throat. Lungs: No shortness of breath, cough, no sputum production. No wheezing. Cardiovascular: No chest pain, no lower extremity edema. No palpitations. No paroxysmal nocturnal dyspnea. No orthopnea. No lightheadedness or dizziness. No syncopal episodes. Abdominal: No abdominal pain. No nausea, vomiting. No diarrhea. No constipation. No bloody or tarry stools. No loss of appetite. Genitourinary: No dysuria, increased frequency, urgency. No urinary retention. Musculoskeletal: No myalgias. + muscle weakness, + gait dysfunction, no frequent falls. No back pain. No neck pain. Right hip and right upper arm pain. Integumentary: No wounds, no lesions. No rash or pruritus. No unusual bruising. No change in hair or nails. Neurologic: No aphasia. No facial droop. noted change in mentation. No head injury. No headache. No paralysis. No paresthesia. Psychiatric: No depression. No anxiety. No mood swings. Endocrine: No abnormal blood sugars. No weight change. No excessive sweating or thirst. PHYSICAL EXAMINATION Gen: This is a thin cachectic 86-year-old male. He is resting in bed appears to be comfortable. HEENT: Head is atraumatic, normocephalic. Pupils equal, round. Sclerae is anicteric. NECK: Supple. No JVD. No lymphadenopathy. No thyromegaly. LUNGS: Clear to auscultation. No wheezes or rhonchi. No intercostal retractions. HEART: Irregular rate and rhythm. No murmur. ABDOMEN: Soft. Bowel sounds are present. No masses. No tenderness. EXTREMITIES: No pedal edema. No calf tenderness. Surgical wound site on the right hip shows no sign of infection, small amount of serosanguineous drainage. No significant redness or edema. Patient has arm sling in place to the right upper extremity. NEUROLOGICAL: Patient is lethargic. ASSESSMENT AND PLAN 1. A. fib with RVR, Paroxysmal. Patient continued on eliquis 2.5 mg twice daily, Lopressor was discontinued due to hypotension. We'll need to monitor heart rate closely. 2. 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 Status post interrogation with no acute findings. 3. Lower extremity cellulitis. Completed antibiotics. 4. Metabolic encephalopathy/acute delirium. CAT scan negative for intracranial abnormality.Consult with neurology appreciated. Patient has been seen by psychiatry with recommendations for Prolixin 0.5 mg twice daily and 2 mg 3 times daily as needed, melatonin. 5. Acute right femur fracture, acute fracture right humerus with impaction. Consult with orthopedics. Plan for surgical intervention on the femur this evening. Patient is medically cleared for surgery intervention. 6. History of hypertension. Continue Aldactone 12.5 mg daily 7. Remote history of tobacco use. 8. Urinary retention requiring Bender catheter. Continue Flomax 0.4 mg daily. Consult with urology appreciated 9. Hematuria, resolved. 10. Generalized weakness and debility. PT and OT consults. 11. Acute delirium secondary to Dilaudid required A-Team. Dilaudid discontinued. Lopressor discontinued. 12. GI prophylaxis. Pepcid 13. DVT prophylaxis. SCDs and MONICA radhae. CODE STATUS: Full code DISCHARGE PLAN Subacute rehab at [facility], awaiting insurance authorization. Anticipate discharge to [facility] on Sunday Impression and plan of care have been directed as dictated by the signing physician. Navya Caraballo nurse practitioner acting as scribe for signing physician. Objective - Vital Signs Vital signs: Vital Signs Temp 98.2 F 07/07/22 05:56 Pulse 88 09/29/21 06:03 Resp 18 09/29/21 06:03 BP 102/52 09/29/21 06:03 Pulse Ox 97 09/29/21 06:03 FiO2 Intake & Output 09/28/21 09/29/21 09/29/21 18:59 06:59 18:59 Intake Total 450 220 Output Total 1200 Balance -750 220 Weight 63.503 kg Intake: IV 450 Oral 0 220 Output: Urine 1100 Estimated Blood Loss 100 Other: Voiding Method Indwelling Catheter Indwelling Catheter - Labs CBC & Chem 7: 09/29/21 07:09 09/29/21 07:09 Labs: Abnormal Lab Results - Last 24 Hours (Table) 09/28/21 09/29/21 Range/Units 20:24 05:26 WBC 16.2 H (3.8-10.6) k/uL RBC 3.35 L (4.30-5.90) m/uL Hgb 10.6 L (13.0-17.5) gm/dL Hct 31.5 L (39.0-53.0) % Neutrophils # 15.0 H (1.3-7.7) k/uL Lymphocytes # 0.3 L (1.0-4.8) k/uL POC Glucose (mg/dL) 148 H (70-110) mg/dL
[2021-09-29] MEDS: SODIUM CHLORIDE 0.9% 1,000 ML IV SCH ×3 (11:50→22:07)
--- NOTE | 2021-09-29 12:34 | P.PN ---
Subjective Progress Note Date: 09/29/21 Principal diagnosis: Status post permanent pacemaker This is an 86-year-old gentleman with recent diagnosis of tachybradycardia syndrome where he underwent a permanent pacemaker implantation as well as recent diagnosis of atrial fibrillation who was admitted to the hospital with dizziness and lightheadedness. As a matter of fact the patient fell and had a right femur fracture and right humeral head fracture. The patient was seen this morning. He is confused. He underwent yesterday pacemaker interrogation and that showed no episode of any arrhythmia and also normally functioning device. His vitals are stable except for marginally low blood pressure. In the light of that I'm going to DC Aldactone which is only medication can cause low blood pressure. He is not on any blood pressure medication decided that. From the cardiovascular standpoint of view, otherwise we'll continue the current medical regimen. He needs to be back on oral anticoagulation once he is stable from the surgical standpoint of view. He underwent yesterday right hip surgery Objective - Vital Signs Vital signs: Vital Signs Temp 98.8 F 09/29/21 11:56 Pulse 86 09/29/21 11:56 Resp 18 09/29/21 11:56 BP 93/52 09/29/21 11:56 Pulse Ox 92 L 09/29/21 11:56 FiO2 Intake & Output 09/28/21 09/29/21 09/29/21 18:59 06:59 18:59 Intake Total 450 220 Output Total 1200 250 Balance -750 220 -250 Weight 63.503 kg Intake: IV 450 Oral 0 220 Output: Urine 1100 250 Estimated Blood Loss 100 Other: Voiding Method Indwelling Catheter Indwelling Catheter Indwelling Catheter - Constitutional General appearance: Present: no acute distress - Respiratory Respiratory: bilateral: diminished - Cardiovascular Heart sounds: normal: S1, S2 - Labs CBC & Chem 7: 09/29/21 07:09 09/29/21 07:09 Labs: Abnormal Lab Results - Last 24 Hours (Table) 09/28/21 09/29/21 09/29/21 Range/Units 20:24 05:26 07:09 WBC 16.2 H 14.4 H (3.8-10.6) k/uL RBC 3.35 L 2.95 L (4.30-5.90) m/uL Hgb 10.6 L 9.5 L (13.0-17.5) gm/dL Hct 31.5 L 28.1 L (39.0-53.0) % Neutrophils # 15.0 H (1.3-7.7) k/uL Lymphocytes # 0.3 L (1.0-4.8) k/uL Sodium (137-145) mmol/L Chloride (98-107) mmol/L BUN (9-20) mg/dL Glucose (74-99) mg/dL POC Glucose (mg/dL) 148 H (70-110) mg/dL Calcium (8.4-10.2) mg/dL Total Protein (6.3-8.2) g/dL Albumin (3.5-5.0) g/dL 09/29/21 Range/Units 07:09 WBC (3.8-10.6) k/uL RBC (4.30-5.90) m/uL Hgb (13.0-17.5) gm/dL Hct (39.0-53.0) % Neutrophils # (1.3-7.7) k/uL Lymphocytes # (1.0-4.8) k/uL Sodium 135 L (137-145) mmol/L Chloride 108 H (98-107) mmol/L BUN 34 H (9-20) mg/dL Glucose 138 H (74-99) mg/dL POC Glucose (mg/dL) (70-110) mg/dL Calcium 7.4 L (8.4-10.2) mg/dL Total Protein 4.6 L (6.3-8.2) g/dL Albumin 2.6 L (3.5-5.0) g/dL Assessment and Plan Assessment: Assessment #1 change in mental status #2 status post fall with a right hip fracture #3 persistent atrial fibrillation #4 multiple comorbid conditions Plan #1 DC Aldactone in the light of marginal blood pressure #2 continue monitor the heart rate and blood pressure #3 the pacemaker was interrogated and seems to be functioning normally
--- NOTE | 2021-09-29 13:52 | P.PN ---
Subjective Progress Note Date: 09/29/21 Principal diagnosis: Status post right hip IT nail This is an 86 year-old female post right hip IT nail. This is post-op day 1. The patient was evaluated at the bedside this afternoon. The patient denies nausea, vomiting, abdominal pain, chest pain, or shortness of breath this morning. He states his pain is controlled at this time. The patient has not been up with physical therapy yet this morning. Objective - Vital Signs Vital signs: Vital Signs Temp 98.8 F 09/29/21 11:56 Pulse 86 09/29/21 11:56 Resp 18 09/29/21 11:56 BP 93/52 09/29/21 11:56 Pulse Ox 92 L 09/29/21 11:56 FiO2 Intake & Output 09/28/21 09/29/21 09/29/21 18:59 06:59 18:59 Intake Total 450 220 Output Total 1200 250 Balance -750 220 -250 Weight 63.503 kg Intake: IV 450 Oral 0 220 Output: Urine 1100 250 Estimated Blood Loss 100 Other: Voiding Method Indwelling Catheter Indwelling Catheter Indwelling Catheter - Exam The patient does not appear in acute distress. Alert and orientated x1. Dressing is clean dry and intact. Incision appears fine with no erythema or active drainage. Calf is soft and nontender. Good foot and ankle motion without difficulty. Sensation and circulatory status is intact. - Labs CBC & Chem 7: 09/29/21 07:09 09/29/21 07:09 Labs: Abnormal Lab Results - Last 24 Hours (Table) 09/28/21 09/29/21 09/29/21 Range/Units 20:24 05:26 07:09 WBC 16.2 H 14.4 H (3.8-10.6) k/uL RBC 3.35 L 2.95 L (4.30-5.90) m/uL Hgb 10.6 L 9.5 L (13.0-17.5) gm/dL Hct 31.5 L 28.1 L (39.0-53.0) % Neutrophils # 15.0 H (1.3-7.7) k/uL Lymphocytes # 0.3 L (1.0-4.8) k/uL Sodium (137-145) mmol/L Chloride (98-107) mmol/L BUN (9-20) mg/dL Glucose (74-99) mg/dL POC Glucose (mg/dL) 148 H (70-110) mg/dL Calcium (8.4-10.2) mg/dL Total Protein (6.3-8.2) g/dL Albumin (3.5-5.0) g/dL 09/29/21 Range/Units 07:09 WBC (3.8-10.6) k/uL RBC (4.30-5.90) m/uL Hgb (13.0-17.5) gm/dL Hct (39.0-53.0) % Neutrophils # (1.3-7.7) k/uL Lymphocytes # (1.0-4.8) k/uL Sodium 135 L (137-145) mmol/L Chloride 108 H (98-107) mmol/L BUN 34 H (9-20) mg/dL Glucose 138 H (74-99) mg/dL POC Glucose (mg/dL) (70-110) mg/dL Calcium 7.4 L (8.4-10.2) mg/dL Total Protein 4.6 L (6.3-8.2) g/dL Albumin 2.6 L (3.5-5.0) g/dL Assessment and Plan (1) Status post hip surgery Current Visit: Yes Status: Acute Code(s): Z98.890 - OTHER SPECIFIED POSTPROCEDURAL STATES SNOMED Code(s): 486860538 (2) Closed intertrochanteric fracture of right hip Current Visit: Yes Status: Acute Code(s): S72.141A - DISPLACED INTERTROCHANTERIC FRACTURE OF RIGHT FEMUR, INIT SNOMED Code(s): 71923945 (3) Fracture of proximal end of right humerus Current Visit: Yes Status: Acute Code(s): S42.201A - UNSP FRACTURE OF UPPER END OF RIGHT HUMERUS, INIT SNOMED Code(s): 083669469 Plan: 1. Continue pain control with Tylenol #3 2. Anticoagulation with Eliquis 3. Start physical therapy and ambulation today. 4. Anticipate discharge to [facility] tomorrow
[2021-09-29] MEDS: TAMSULOSIN 0.4 MG CAP.ER.24H PO SCH (17:31)
[2021-09-29] MEDS: SENNOSIDES-DOCUSATE SODIUM 1 EACH TAB PO SCH (20:39)
[2021-09-29] MEDS: MELATONIN 5 MG TABLET PO SCH (20:40)
--- NOTE | 2021-09-30 07:33 | P.DS ---
Providers Date of admission: 09/17/21 11:20 Expected date of discharge: 09/30/21 Attending physician: Rojelio Zuniga Consults: 09/17/21 11:20 Consult Physician Routine Consulting Provider: Wagner Summers Consult Reason/Comments: bradycardia Do you want consulting provider notified?: Yes 09/19/21 05:55 Consult Physician Routine Consulting Provider: Rojelio Talley Consult Reason/Comments: delirium Do you want consulting provider notified?: Yes, Notify in am 09/21/21 09:07 Consult Physician Routine Consulting Provider: Candi Victor Consult Reason/Comments: mental status changes Do you want consulting provider notified?: Yes 09/27/21 08:39 Consult Physician Routine Consulting Provider: Harshal Fernandez Consult Reason/Comments: urinary retention Do you want consulting provider notified?: Yes 09/27/21 21:13 Consult Physician Routine Consulting Provider: Ozzie Brennan Consult Reason/Comments: fall with fractures Do you want consulting provider notified?: Yes, Notify in am 09/28/21 08:25 Consult Physician Routine Consulting Provider: Wagner Summers Consult Reason/Comments: check pacemaker, HR 43 Do you want consulting provider notified?: Yes Primary care physician: [facility] Course: HISTORY OF PRESENT ILLNESS This is a pleasant 86 years old male with past medical history of hypertension, not on medication. Patient presents because of dizziness started this morning without syncope or fall. Patient states that 4:00 in the morning he started feeling dizzy associated with sweating, dizziness and some headache and lightheadedness he denies chest pain or dyspnea No syncope, no change in urine or bowel habits, no dysuria. Also he fell on his right arm was some abrasion about 2 days ago. No evidence of cellulitis. Patient went to urgent care where his heart rate was down to 70s and was sent to the emergency room Currently heart rate is 52-62, rest of vitals are stable. He denies smoking, alcohol or illicit drugs Labs including CBC, INR, BMP, liver enzymes and troponin are unremarkable. EKG showing sinus rhythm at 62 with PVCs Patient was admitted with cardiology consultation 09/18/2021 Patient today was more confused and needed to be closely monitored, at first we given Seroquel but that did not, hum down so we have to give him Haldol when necessary, patient feels better. Because his heart rate was abnormal, bradycardia on admission. On developed A. fib and RVR cardiology starting him on heparin and Cardizem drip. Also he has evidence of cellulitis on his abrasions on both right forearm and right leg and patient was started on cefazolin Because of his agitation and confusion her CT of the brain which is pending now, could not be done earlier because of his agitation. His other labs are reviewed and he has leukocytosis of 14.7, rest of vitals looks stable and patient is afebrile. TSH a 3.3. Urinalysis is negative. Echocardiogram showed ejection fraction of 50-55%. 09/19: Patient is more confused today, family members are at bedside. He has a Bender catheter for urinary retention. Heparin was placed on hold due to hematuria. He is off Cardizem drip.repeat blood work reveals WBC 10.7, hemoglobin 12.8, platelet count 173. Chloride 108, CO2 25, BUN 23 creatinine 1.2. Urinalysis revealed small amount of blood but no sign of infection. CAT scan of the brain revealed no acute intracranial abnormality or gross space- occupying lesion. Carotid ultrasound revealed plaquing without significant flow limiting stenosis internal carotid arteries. Some moderate stenosis of the external carotid arteries. 09/20: Patient has developed hematuria again overnight. He cardiology is planning for pacemaker insertion today. Family have determined patient to be full CODE STATUS. Discussed discharge planning with the family and they are agreeable to [facility] for subacute rehab which will plan for the end of this week. Order placed with social work to follow-up. Heart rate mostly running in the 40s but did dip into the 30s, blood pressure 128/53, pulse ox 96% on room air, afebrile. Repeat blood work reveals chloride 110, BUN 27 creatinine 1.1. Blood sugar 102. Patient is also been seen by psychiatry for delirium secondary to medications including benzodiazepines. Recommendations are for delirium precautions and the following medication changes: Avoid anticholinergics and benzodiazepines. Prolixin 1 mg twice a day and as needed for agitation, melatonin 2 mg daily at bedtime for sleep. 09/21: Patient had worsening confusion last night and one dose of Ativan was given with improvement of his behavior. Patient's son Flaco spent the night in the room. Consult added for neurology. Patient is noted to have some coughing today with water but was able to take his medications earlier, speech therapy consult added. Patient is currently nothing by mouth per cardiology and nursing will follow-up with cardiology [employer] regarding this. Patient has been afebrile, heart rate in the 50s, blood pressure 133/61, pulse ox 96% on room air. WBC 9.1, hemoglobin 12.7, platelets 183. Sodium 140, potassium 4.4, chloride 110, CO2 21, BUN 25 creatinine 1.07. Liver function tests were normal. Blood culture no growth at 48 hours and finalized. Wound culture from right arm reveals no growth at 48 hours repeat chest x-ray reveals no acute pulmonary process. Patient has been seen by psychiatry for delirium secondary to medications including benzodiazepines.. 09/22: Patient's son and daughter are at bedside. Son states the patient had a rough night. This pacemaker has been interrogated with no acute findings. Cardiology recommends continuing eliquis and Lopressor, Aldactone and cleared for discharge. He remains with Bender catheter in place which will plan to discontinue and do a voiding trial. He is continued on Flomax. Patient has been seen by neurology for delirium unclear etiology, perhaps related to medication versus hospital. Patient to be seen by PT and OT today. Vitamin B12 455, folate 19.6. Discussed discharge planning with the family members and patient may do best at home due to his underlying dementia and confusion. PT and OT to see the patient today. Right now [facility] care is arranged. Anticipate discharge tomorrow. 09/23: Bender catheter was removed yesterday the patient is having retention, most likely will need Bender replaced after next bladder scan. Patient was able to eat breakfast this morning. He has not been out of bed since he came in. PT and OT to work with him today. Due to extreme weakness, anticipate need for subacute rehab. Patient has been afebrile, heart rate 52, blood pressure 156/69, pulse ox 94% on room air. 09/24, inpatient stay day number #7 patient is doing much better, 1 person assist on therapy rather than 2 persons assist for cath in place, for urinary retention, daughter is at bedside, she has some confusion and is still not sleeping, however he can be redirected, the daughter thinks that she might do well at home rather than the long term, and has, members to assist 24 7, 2 people if needed. Telemetry monitoring will be discontinued today, melatonin increased to 10 mg, sitter hygiene recommended psych following, on chronic seen 0.5 mg twice a day, still on IV cefazolin and cultures, final negative growth, UA is negative, cellulitis on the arms, has improved we will switch to oral Keflex 500 mg 3 times a day, for the cellulitis. Therapy actively working with the patient, and patient's participating, no lightheadedness no dizziness, vitals are stable heart rate is in the 50s low as 48, has a pacemaker creatinine, 1.07 improved 09/25 patient is dozing in and out of sleep today, more hypersomnolent to it, has difficulty with therapies today, full, seems to be cloudy, check for urine culture, has been on Prolixin without any changes, melatonin started last night, as the patient is not sleeping, patient's son is at bedside today, cellulitis in the arms are much better, seems to decline with regards to debility, over the past 12 hours. Patient has no problems with appetite, however she chokes on food sometimes. , no current fever, vitals are stable. A modified barium swallow to be done, might need chest x-ray. No cough noted 09/26, Bender catheter has been replaced again on as there is some urinary retention, over 400 mL, the daughters at bedside, they have understood to arm B safety supination at home, they have agreed on subacute short-term rehabilitation, for endurance. Patient has off-and-on confusion, anddaytime sleepiness, no new changes on treatment from psychiatry, sleep synagogue is still discussed, patient's to continue on Flomax, no hematuria on Bender catheter, no falls currently. Discharge, to [facility] in the next 24 hours, with subacute rehabilitation 09/27: The patient seems more alert today. He is more active as well. We will have PT and OT 3 check patient for discharge needs. At this time, subacute rehab at [facility] is the discharge plan. Due to urinary retention, consult will be added for urology to assess, and continue Flomax. No need for modified barium swallows patient was within normal limits for speech therapy evaluation. Patient remains afebrile, heart rate 59, blood pressure 124/63, pulse ox 90% on room air. Urinalysis performed yesterday revealed small amount of blood, RBCs 22. Patient will be discharged today once he is seen and evaluated by urology and discharge plan is confirmed. Patient was seen by urology with recommendations to maintain Bender catheter for 2 weeks and then voiding trial at rehab, follow-up with Dr. Fernandez and continue Flomax. 09/28: Patient was seen by urology last evening with recommendations for continuing bender for 2 weeks, then discontinue with voiding trial, follow up with Dr. Fernandez and continue Flomax. Unfortunately, patient was found by staff on the floor in front of recliner. He had taken off chair alarm. X-rays found right femur fracture and right humeral neck and proximal shaft with some impaction. Consult with orthopedics added and patient is scheduled for closed reduction with intertrochanteric nail. Sling ordered for right humerus fracture with no plan for surgical intervention. Patient is medically cleared for surgery intervention. Patient's son is at bedside and updated. Tylenol #3 added for pain control. Patient noted to have bradycardia documented down to 43 and asked cardiology to re-evaluate settings on pacemaker. 09/29: Yesterday, patient underwent closed reduction and IM nail right hip with Dr. Brennan. Patient is seen on the [facility] floor. Patient has been afebrile, heart rate 88, blood pressure 102/52, pulse ox 97% on 3 L nasal cannula. The patient is seen today sleeping this. A team was called this morning after patient received Dilaudid, status post Narcan. Due to blood pressure being low, Lopressor was also discontinued Dilaudid discontinued. Patient to have only Tylenol 3 for pain. Chest x-ray from 09/28 revealed chronic changes bilaterally. Right basilar opacities. Consider developing acute infiltrate or atelectasis. Suspects tiny pleural effusion. Stable mild cardiomegaly with atherosclerotic and ectatic thoracic aorta. Discharge plan remains for subacute rehab at [facility] and will hope for tomorrow depending on patient's progress. 09/30: Patient has been afebrile, heart rate 71, blood pressure 111/62, pulse ox 97% on 2 L. Cardiology is recommending continuing the same current medical regime. Patient will need to be back on anticoagulations once a stable from surgical standpoint. Orthopedics has cleared the patient to resume eliquis. Patient is to be toe-touch weightbearing on the right lower extremity and nonweightbearing on the right upper extremity, arm sling to the right arm and follow with Dr. Brennan in 4 weeks. [place] are to be removed in 2 weeks post op. Dressing change on the right hip to be done daily and as needed. Also discussed case with cardiology and patient is cleared for discharge and continue current medications. We will resume patient on a small dose of beta mary kay at 12.5 mg twice daily and hold for heart rate less than 55 and systolic blood pressure less than 110. Patient will be discharged to [facility] today for subacute rehab DISCHARGE DIAGNOSES 1. A. fib with RVR, Paroxysmal. 2. 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 3. Lower extremity cellulitis. Completed antibiotics. 4. Metabolic encephalopathy/acute delirium. 5. Acute right femur fracture, acute fracture right humerus with impaction S/P IM nail right hip 09/28. 6. History of hypertension. 7. Remote history of tobacco use. 8. Urinary retention requiring Bender catheter. 9. Hematuria, resolved. 10. Generalized weakness and debility. 11. Acute delirium secondary to Dilaudid required A-Team. DISCHARGE PLAN Subacute rehab at [facility] Greater than 35 minutes was utilized and coordinating patient's discharge. Impression and plan of care have been directed as dictated by the signing physician. Navya Caraballo nurse practitioner acting as scribe for signing physician. Patient Condition at Discharge: Stable Plan - Discharge Summary Discharge Rx Participant: Yes New Discharge Prescriptions: New Apixaban [Eliquis] 2.5 mg PO BID 30 Days #60 tab fluPHENAZine [Prolixin] 0.5 mg PO BID #30 tab Cyanocobalamin [Vitamin B-12] 1,000 mcg PO DAILY #0 tab Sennosides-Docusate Sodium [Senokot-S] 2 each PO HS tab Tamsulosin [Flomax] 0.4 mg PO PC-SUPPER #30 cap Melatonin 10 mg PO DAILY@2000 tab Acetaminophen-Codeine 300-30mg [Tylenol w/codeine #3] 1 each PO Q6HR PRN #12 tab PRN Reason: Pain Metoprolol Tartrate [Lopressor] 12.5 mg PO BID 30 Days #60 tablet Continue Spironolactone 12.5 mg PO DAILY Mupirocin 2% Oint [Bactroban 2% Oint] 1 applic TOPICAL BID Discontinued Cephalexin [Keflex] 250 mg PO Q8HR Discharge Medication List Mupirocin 2% Oint [Bactroban 2% Oint] 1 applic TOPICAL BID 09/17/21 [History] Spironolactone 12.5 mg PO DAILY 09/17/21 [History] Apixaban [Eliquis] 2.5 mg PO BID 30 Days #60 tab 09/19/21 [Rx] Cyanocobalamin [Vitamin B-12] 1,000 mcg PO DAILY #0 tab 09/27/21 [Rx] Melatonin 10 mg PO DAILY@2000 tab 09/27/21 [Rx] Tamsulosin [Flomax] 0.4 mg PO PC-SUPPER #30 cap 09/27/21 [Rx] fluPHENAZine [Prolixin] 0.5 mg PO BID #30 tab 09/27/21 [Rx] Acetaminophen-Codeine 300-30mg [Tylenol w/codeine #3] 1 each PO Q6HR PRN #12 tab 09/28/21 [Rx] Metoprolol Tartrate [Lopressor] 12.5 mg PO BID 30 Days #60 tablet 09/30/21 [Rx] Sennosides-Docusate Sodium [Senokot-S] 2 each PO HS tab 09/30/21 [Rx] Follow up Appointment(s)/Referral(s): Wagner Summers MD [STAFF PHYSICIAN] - 2 Weeks [facility], [NON-STAFF] - 1 Week Ozzie Brennan DO [Doctor of Osteopathic Medicine] - 4 Weeks Harshal Fernandez MD [STAFF PHYSICIAN] - 2 Weeks Rojelio Zuniga MD [Primary Care Provider] - 1 Week (AT [facility]) Patient Instructions/Handouts: Apixaban (By mouth), Pacemaker (GEN) Activity/Diet/Wound Care/Special Instructions: Activity Restrictions or Additional Instructions: Instructions following a heart rhythm device implant. 1. Keep dressing dry for 5 days. You khalida cover the area with surrounding with a clean dressing/wrap prior to shower 2. The dressing can be removed in about 5 days in the Device Clinic at [facility]. Absorbable sutures were used to close the wound. 3. Avoid raising the left arm above the shoulder level. 4 week resection. 4. Avoid arm movements such as back scratching, rubbing the head or pulling on a cord. 4 week for striction. 5. Gentle range of motion movements of the shoulder, closest institution should be performed to avoid a frozen shoulder. (Pendulum exercises of the shoulder) 6. The opposite arm may be used freely. 7. Avoid driving for 7 days. 8. Avoid activities such as golfing, swimming, weed whacking, lifting more than 10 pounds of weight, bowling, and weight training/lifting (6 week restriction) 9. Being close to home induction cooktops and activities such as wood chopping with axe, pull ups, power lifting will always be a problem 10. Arm sling is only remind her not to raise arm above the head. You do not need to keep the arm completely immobilized. You're free to move the arm and use it in normal activities. In case of any problems, please call [facility] at [phone] Attention: Device Clinic Device clinic follow up in 5 days Follw up with primary tube heater in 2-3 months Toe touch weightbearing to the right lower extremity. Nonweightbearing to the right upper extremity Arm sling to right arm. May loosen in bed. Follow up with Dr. Ozzie Brennan in 4 weeks. Remove dedrick in 2 weeks post-op. Change hip dressing daily and as needed for drainage. Discharge Disposition: TRANSFER TO SNF/ECF
[2021-09-30] MEDS: APIXABAN 2.5 MG TABLET PO SCH (08:37)
[2021-09-30] MEDS: CYANOCOBALAMIN 500 MCG TAB PO SCH (08:37)
[2021-09-30] MEDS: FAMOTIDINE 20 MG TAB PO SCH (08:37)
[2021-09-30] MEDS: SODIUM CHLORIDE 0.9% 1,000 ML IV SCH ×2 (08:38→10:14)
--- NOTE | 2021-09-30 09:27 | P.PN ---
Subjective Progress Note Date: 09/30/21 Principal diagnosis: Status post right hip IT nail This is an 86 year-old female post right hip IT nail. This is post-op day 2. The patient was evaluated at the bedside this afternoon. The patient denies nausea, vomiting, abdominal pain, chest pain, or shortness of breath this morning. He states his pain is controlled at this time. The patient has not been up with physical therapy yet due to his drowsiness. We are awaiting rehab placement. Objective - Vital Signs Vital signs: Vital Signs Temp 98.2 F 09/30/21 04:13 Pulse 71 09/30/21 04:13 Resp 14 09/30/21 04:13 BP 111/62 09/30/21 04:13 Pulse Ox 97 09/30/21 04:13 FiO2 Intake & Output 09/29/21 09/30/21 09/30/21 18:59 06:59 18:59 Intake Total 1200 Output Total 500 600 Balance -500 600 Intake: Intake, IV Titration 1200 Amount Sodium Chloride 0.9% 1, 1200 000 ml @ 100 mls/hr IV . Q10H [facility] Rx#:[id number] Output: Urine 500 600 Other: Voiding Method Indwelling Catheter Indwelling Catheter Indwelling Catheter - Exam The patient does not appear in acute distress. Alert and orientated x1. The dressings were saturated with seriosanginous drainage this morning. Incision appears fine with no erythema or active drainage. Calf is soft and nontender. Good foot and ankle motion without difficulty. Sensation and circulatory status is intact. - Labs CBC & Chem 7: 09/29/21 07:09 09/29/21 07:09 Assessment and Plan (1) Status post hip surgery Current Visit: Yes Status: Acute Code(s): Z98.890 - OTHER SPECIFIED POSTPROCEDURAL STATES SNOMED Code(s): 117082315 (2) Closed intertrochanteric fracture of right hip Current Visit: Yes Status: Acute Code(s): S72.141A - DISPLACED INTERTROCHANTERIC FRACTURE OF RIGHT FEMUR, INIT SNOMED Code(s): 95265767 (3) Fracture of proximal end of right humerus Current Visit: Yes Status: Acute Code(s): S42.201A - UNSP FRACTURE OF UPPER END OF RIGHT HUMERUS, INIT SNOMED Code(s): 565738948 Plan: 1. Continue pain control with Tylenol #3 2. Anticoagulation with Eliquis 3. Start physical therapy and ambulation today. 4. Anticipate discharge to [facility] either today or tomorrow.
--- NOTE | 2021-09-30 10:33 | P.PN ---
Subjective Progress Note Date: 09/30/21 HISTORY OF PRESENT ILLNESS This is a pleasant 86 years old male with past medical history of hypertension, not on medication. Patient presents because of dizziness started this morning without syncope or fa ll. Patient states that 4:00 in the morning he started feeling dizzy associated with sweating, dizziness and some headache and lightheadedness he denies chest pain or dyspnea No syncope, no change in urine or bowel habits, no dysuria. Also he fell on his right arm was some abrasion about 2 days ago. No evidence of cellulitis. Patient went to urgent care where his heart rate was down to 70s and was sent to the emergency room Currently heart rate is 52-62, rest of vitals are stable. He denies smoking, alcohol or illicit drugs Labs including CBC, INR, BMP, liver enzymes and troponin are unremarkable. EKG showing sinus rhythm at 62 with PVCs Patient was admitted with cardiology consultation 09/18/2021 Patient today was more confused and needed to be closely monitored, at first we given Seroquel but that did not, hum down so we have to give him Haldol when necessary, patient feels better. Because his heart rate was abnormal, bradycardia on admission. On developed A. fib and RVR cardiology starting him on heparin and Cardizem drip. Also he has evidence of cellulitis on his abrasions on both right forearm and right leg and patient was started on cefazolin Because of his agitation and confusion her CT of the brain which is pending now, could not be done earlier because of his agitation. His other labs are reviewed and he has leukocytosis of 14.7, rest of vitals looks stable and patient is afebrile. TSH a 3.3. Urinalysis is negative. Echocardiogram showed ejection fraction of 50-55%. 09/19: Patient is more confused today, family members are at bedside. He has a Bender catheter for urinary retention. Heparin was placed on hold due to hematuria. He is off Cardizem drip.repeat blood work reveals WBC 10.7, hemoglobin 12.8, platelet count 173. Chloride 108, CO2 25, BUN 23 creatinine 1.2. Urinalysis revealed small amount of blood but no sign of infection. CAT scan of the brain revealed no acute intracranial abnormality or gross space- occupying lesion. Carotid ultrasound revealed plaquing without significant flow limiting stenosis internal carotid arteries. Some moderate stenosis of the external carotid arteries. 09/20: Patient has developed hematuria again overnight. He cardiology is planning for pacemaker insertion today. Family have determined patient to be full CODE STATUS. Discussed discharge planning with the family and they are agreeable to [facility] for subacute rehab which will plan for the end of this week. Order placed with social work to follow-up. Heart rate mostly running in the 40s but did dip into the 30s, blood pressure 128/53, pulse ox 96% on room air, afebrile. Repeat blood work reveals chloride 110, BUN 27 creatinine 1.1. Blood sugar 102. Patient is also been seen by psychiatry for delirium secondary to medications including benzodiazepines. Recommendations are for delirium precautions and the following medication changes: Avoid anticholinergics and benzodiazepines. Prolixin 1 mg twice a day and as needed for agitation, m elatonin 2 mg daily at bedtime for sleep. 09/21: Patient had worsening confusion last night and one dose of Ativan was given with improvement of his behavior. Patient's son Flaco spent the night in the room. Consult added for neurology. Patient is noted to have some coughing today with water but was able to take his medications earlier, speech therapy consult added. Patient is currently nothing by mouth per cardiology and nursing will follow-up with cardiology ASTROBIOLOGIST regarding this. Patient has been afebrile, heart rate in the 50s, blood pressure 133/61, pulse ox 96% on room air. WBC 9.1, hemoglobin 12.7, platelets 183. Sodium 140, potassium 4.4, chloride 110, CO2 21, BUN 25 creatinine 1.07. Liver function tests were normal. Blood culture no growth at 48 hours and finalized. Wound culture from right arm reveals no growth at 48 hours repeat chest x-ray reveals no acute pulmonary process. Patient has been seen by psychiatry for delirium secondary to medications including benzodiazepines.. 09/22: Patient's son and daughter are at bedside. Son states the patient had a rough night. This pacemaker has been interrogated with no acute findings. Cardiology recommends continuing eliquis and Lopressor, Aldactone and cleared for discharge. He remains with Bender catheter in place which will plan to discontinue and do a voiding trial. He is continued on Flomax. Patient has been seen by neurology for delirium unclear etiology, perhaps related to medication versus hospital. Patient to be seen by PT and OT today. Vitamin B12 455, folate 19.6. Discussed discharge planning with the family members and patient may do best at home due to his underlying dementia and confusion. PT and OT to see the patient today. Right now [facility] home care is arranged. Anticipate discharge tomorrow. 09/23: Bender catheter was removed yesterday the patient is having retention, most likely will need Bender replaced after next bladder scan. Patient was able to eat breakfast this morning. He has not been out of bed since he came in. PT and OT to work with him today. Due to extreme weakness, anticipate need for subacute rehab. Patient has been afebrile, heart rate 52, blood pressure 156 /69, pulse ox 94% on room air. 09/24, inpatient stay day number #7 patient is doing much better, 1 person assist on therapy rather than 2 persons assist for cath in place, for urinary retention, daughter is at bedside, she has some confusion and is still not sleeping, however he can be redirected, the daughter thinks that she might do well at home rather than the correction, and has, members to assist 24 7, 2 people if needed. Telemetry monitoring will be discontinued today, melatonin increased to 10 mg, sitter hygiene recommended psych following, on chronic seen 0.5 mg twice a day, still on IV cefazolin and cultures, final negative growth, UA is negative, cellulitis on the arms, has improved we will switch to oral Keflex 500 mg 3 times a day, for the cellulitis. Therapy actively working with the patient, and patient's participating, no lightheadedness no dizziness, vitals are stable heart rate is in the 50s low as 48, has a pacemaker creatinine, 1.07 improved 09/25 patient is dozing in and out of sleep today, more hypersomnolent to it, has difficulty with therapies today, full, seems to be cloudy, check for urine culture, has been on Prolixin without any changes, melatonin started last night, as the patient is not sleeping, patient's son is at bedside today, cellulitis in the arms are much better, seems to decline with regards to debility, over the past 12 hours. Patient has no problems with appetite, however she chokes on food sometimes. , no current fever, vitals are stable. A modified barium swallow to be done, might need chest x-ray. No cough noted 09/26, Bender catheter has been replaced again on as there is some urinary retention, over 400 mL, the daughters at bedside, they have understood to arm B safety supination at home, they have agreed on subacute short-term rehabilitation, for endurance. Patient has off-and-on confusion, anddaytime sleepiness, no new changes on treatment from psychiatry, sleep restorationist is still discussed, patient's to continue on Flomax, no hematuria on Bender catheter, no falls currently. Discharge, to [facility] in the next 24 hours, with subacute rehabilitation 09/27: The patient seems more alert today. He is more active as well. We will have PT and OT 3 check patient for discharge needs. At this time, subacute rehab at [facility] is the discharge plan. Due to urinary retention, consult will be added for urology to assess, and continue Flomax. No need for modified barium swallows patient was within normal limits for speech therapy evaluation. Patient remains afebrile, heart rate 59, blood pressure 124/63, pulse ox 90% on room air. Urinalysis performed yesterday revealed small amount of blood, RBCs 22. Patient will be discharged today once he is seen and evaluated by urology and discharge plan is confirmed. Patient was seen by urology with recommendations to maintain Bender catheter for 2 weeks and then voiding trial at rehab, follow-up with Dr. Fernandez and continue Flomax. 09/28: Patient was seen by urology last evening with recommendations for continuing bender for 2 weeks, then discontinue with voiding trial, follow up with Dr. Fernandez and continue Flomax. Unfortunately, patient was found by staff on the floor in front of recliner. He had taken off chair alarm. X-rays found right femur fracture and right humeral neck and proximal shaft with some impaction. Consult with orthopedics added and patient is scheduled for closed reduction with intertrochanteric nail. Sling ordered for right humerus fracture with no plan for surgical intervention. Patient is medically cleared for surgery in tervention. Patient's son is at bedside and updated. Tylenol #3 added for pain control. Patient noted to have bradycardia documented down to 43 and asked cardiology to re-evaluate settings on pacemaker. 09/29: Yesterday, patient underwent closed reduction and IM nail right hip with Dr. Brennan. Patient is seen on the [facility] floor. Patient has been afebrile, heart rate 88, blood pressure 102/52, pulse ox 97% on 3 L nasal cannula. The patient is seen today sleeping this. A team was called this morning after patient received Dilaudid, status post Narcan. Due to blood pressure being low, Lopressor was also discontinued Dilaudid discontinued. Patient to have only Tylenol 3 for pain. Chest x-ray from 09/28 revealed chronic changes bilaterally. Right basilar opacities. Consider developing acute infiltrate or atelectasis. Suspects tiny pleural effusion. Stable mild cardiomegaly with atherosclerotic and ectatic thoracic aorta. Discharge plan remains for subacute rehab at [facility] and will hope for tomorrow depending on patient's progress. 09/30: Patient has been afebrile, heart rate 71, blood pressure 111/62, pulse ox 97% on 2 L. Cardiology is recommending continuing the same current medical regime. Patient will need to be back on anticoagulations once a stable from surgical standpoint. Orthopedics has cleared the patient to resume eliquis. Patient is to be toe-touch weightbearing on the right lower extremity and nonweightbearing on the right upper extremity, arm sling to the right arm and follow with Dr. Brennan in 4 weeks. [place] are to be removed in 2 weeks post op. Dressing change on the right hip to be done daily and as needed. Also discussed case with cardiology and patient is cleared for discharge and continue current medications. We will resume patient on a small dose of beta mary kay at 12.5 mg twice daily and hold for heart rate less than 55 and systolic blood pressure less than 110. Patient will be discharged to [facility] today for s ubacute rehab REVIEW OF SYSTEMS Constitutional: No fever, no chills, no night sweats. No weight change. generalized weakness, +fatigue. + daytime sleepiness. EENT: No headache. No blurred vision or double vision, no loss of vision. No loss of Hearing, no ringing in the ears, no dizziness. No nasal drainage or congestion. No epistaxis. No sore throat. Lungs: No shortness of breath, cough, no sputum production. No wheezing. Cardiovascular: No chest pain, no lower extremity edema. No palpitations. No paroxysmal nocturnal dyspnea. No orthopnea. No lightheadedness or dizziness. No syncopal episodes. Abdominal: No abdominal pain. No nausea, vomiting. No diarrhea. No constipation. No bloody or tarry stools. No loss of appetite. Genitourinary: No dysuria, increased frequency, urgency. No urinary retention. Musculoskeletal: No myalgias. + muscle weakness, + gait dysfunction, no frequent falls. No back pain. No neck pain. Right hip and right upper arm pain. Integumentary: No wounds, no lesions. No rash or pruritus. No unusual bruising. No change in hair or nails. Neurologic: No aphasia. No facial droop. noted change in mentation. No head injury. No headache. No paralysis. No paresthesia. Psychiatric: No depression. No anxiety. No mood swings. Endocrine: No abnormal blood sugars. No weight change. No excessive sweating or thirst. PHYSICAL EXAMINATION Gen: This is a thin cachectic 86-year-old male. He is resting in bed appears to be comfortable. HEENT: Head is atraumatic, normocephalic. Pupils equal, round. Sclerae is anicteric. NECK: Supple. No JVD. No lymphadenopathy. No thyromegaly. LUNGS: Clear to auscultation. No wheezes or rhonchi. No intercostal retractions. HEART: Irregular rate and rhythm. No murmur. ABDOMEN: Soft. Bowel sounds are present. No masses. No tenderness. EXTREMITIES: No pedal edema. No calf tenderness. Surgical wound site on the right hip shows no sign of infection, small amount of serosanguineous drainage. No significant redness or edema. Patient has arm sling in place to the right upper extremity. NEUROLOGICAL: Patient is lethargic. ASSESSMENT AND PLAN 1. A. fib with RVR, Paroxysmal. Patient continued on eliquis 2.5 mg twice daily, Lopressor was discontinued due to hypotension. We'll need to monitor heart rate closely. 2. 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 Status post interrogation with no acute findings. 3. Lower extremity cellulitis. Completed antibiotics. 4. Metabolic encephalopathy/acute delirium. CAT scan negative for intracranial abnormality.Consult with neurology appreciated. Patient has been seen by psychiatry with recommendations for Prolixin 0.5 mg twice daily and 2 mg 3 times daily as needed, melatonin. 5. Acute right femur fracture, acute fracture right humerus with impaction. Consult with orthopedics. Status post IM nail. Toe-touch on the right lower extremity, nonweightbearing on the right upper extremity, arm sling to the right upper extremity. 6. History of hypertension. Continue Aldactone 12.5 mg daily 7. Remote history of tobacco use. 8. Urinary retention requiring Bender catheter. Continue Flomax 0.4 mg daily. Consult with urology appreciated 9. Hematuria, resolved. 10. Generalized weakness and debility. PT and OT consults. 11. Acute delirium secondary to Dilaudid required A-Team. Dilaudid discontinued. Lopressor discontinued. 12. GI prophylaxis. Pepcid 13. DVT prophylaxis. SCDs and MONICA garciae. CODE STATUS: Full code DISCHARGE PLAN Subacute rehab at [facility] once arrangements are completed Impression and plan of care have been directed as dictated by the signing physician. Navya Caraballo nurse practitioner acting as scribe for signing physician. Objective - Vital Signs Vital signs: Vital Signs Temp 98.2 F 09/30/21 04:13 Pulse 71 09/30/21 04:13 Resp 14 09/30/21 04:13 BP 111/62 09/30/21 04:13 Pulse Ox 97 09/30/21 04:13 FiO2 Intake & Output 09/29/21 09/30/21 09/30/21 18:59 06:59 18:59 Intake Total 1200 Output Total 500 600 Balance -500 600 Intake: Intake, IV Titration 1200 Amount Sodium Chloride 0.9% 1, 1200 000 ml @ 100 mls/hr IV . Q10H [facility] Rx#:[id number] Output: Urine 500 600 Other: Voiding Method Indwelling Catheter Indwelling Catheter Indwelling Catheter - Labs CBC & Chem 7: 09/29/21 07:09 09/29/21 07:09
[2021-09-30 12:17] VITALS: BP 119/64; PULSE 87; RESP 16; TEMP 99.9
--- NOTE | 2021-10-01 14:31 | CDI ---
Documentation Clarification Form Date: 10/01/2021 02:14:47 PM From: Kaylee Maxwell Phone: Admit Date: 09/17/2021 11:20:00 AM Patient Name: Rojelio Dalton Visit Number: [id number] Discharge Date: 09/30/2021 03:17:00 PM ATTENTION: The Clinical Documentation Specialists (CDI) and [facility] Coding Staff appreciate your assistance in clarifying documentation. Please respond to the clarification below the line at the bottom and electronically sign. The CDI & [facility] Coding staff will review the response and follow-up if needed. Please note: Queries are made part of the Legal Health Record. If you have any questions, please contact the author of this message via ITS. Dr. Rojelio Caraballo NPC Progress note on 09/19/21 it is noted patient is "thin, cachectic." Based on this information and the findings below, is there an additional diagnosis that is clinically appropriate for this patient? History/Risk Factors: 86yo M, A Fib, SSS sp PPM, Clau forearm and Rt leg cellulitis, metabolic / toxic encephalopathy, HTN w cardiomegaly, heart block, clau ECA stenosis, BPH, PVC, Hx falls, general weakness Clinical Indicators: Current BMI: 21.3 Loss of muscle mass: He is afrailand thin-looking with someerythemaandulcerationof clau feet. General weakness Treatment: DC to [facility] Is there an additional diagnosis that is clinically appropriate for this patient? [ ] Underweight [ ] Mild Protein-Calorie Malnutrition [ ] Moderate Protein-Calorie Malnutrition [ xx] Severe Protein-Calorie Malnutrition [ ] Other condition, please specify [ ] Unable to Determine (Template Last Revised: May 2020) MTDD
== END 2021-09-30 15:17 | DRG 242 ==
LOC: EC 10:05 → 3SCARD 11:20 → 5NMEDONC 09-24 18:35
PROVIDERS: ADMIT Internal Medicine Geriatric Medicine; ATTEND Internal Medicine Geriatric Medicine
PROC: 0JH604Z Insertion of Pacemaker, Single Chamber into Chest Subcutaneous Tissue and Fascia, Open Approach (ICD-10-PCS; 2021-09-20)
PROC: 02HK3JZ Insertion of Pacemaker Lead into Right Ventricle, Percutaneous Approach (ICD-10-PCS; principal; 2021-09-20 09:00)
PROC: 0QS606Z Reposition Right Upper Femur with Intramedullary Internal Fixation Device, Open Approach (ICD-10-PCS; 2021-09-28)
DX: I49.5 Sick sinus syndrome (principal); E43 Unspecified severe protein-calorie malnutrition; S42.291A Other displaced fracture of upper end of right humerus, initial encounter for closed fracture; S72.141A Displaced intertrochanteric fracture of right femur, initial encounter for closed fracture; G92.8 Other toxic encephalopathy; I47.2 Ventricular tachycardia; R64 Cachexia; F05 Delirium due to known physiological condition; L03.115 Cellulitis of right lower limb; I48.19 Other persistent atrial fibrillation; L97.429 Non-pressure chronic ulcer of left heel and midfoot with unspecified severity; L97.419 Non-pressure chronic ulcer of right heel and midfoot with unspecified severity; L03.113 Cellulitis of right upper limb; L03.114 Cellulitis of left upper limb; I65.23 Occlusion and stenosis of bilateral carotid arteries; I11.9 Hypertensive heart disease without heart failure; F03.90 Unspecified dementia, unspecified severity, without behavioral disturbance, psychotic disturbance, mood disturbance, and anxiety; I08.1 Rheumatic disorders of both mitral and tricuspid valves; I70.0 Atherosclerosis of aorta; I95.9 Hypotension, unspecified; G47.10 Hypersomnia, unspecified; I44.0 Atrioventricular block, first degree; R33.8 Other retention of urine; N40.1 Benign prostatic hyperplasia with lower urinary tract symptoms; S50.811A Abrasion of right forearm, initial encounter; R31.9 Hematuria, unspecified; I49.3 Ventricular premature depolarization; S80.811A Abrasion, right lower leg, initial encounter; D72.829 Elevated white blood cell count, unspecified; M62.81 Muscle weakness (generalized); T40.2X5A Adverse effect of other opioids, initial encounter; T50.0X5A Adverse effect of mineralocorticoids and their antagonists, initial encounter; W19.XXXA Unspecified fall, initial encounter; Y92.239 Unspecified place in hospital as the place of occurrence of the external cause; Z20.822 Contact with and (suspected) exposure to COVID-19; Z91.81 History of falling; Z87.891 Personal history of nicotine dependence; Z98.41 Cataract extraction status, right eye; Z98.42 Cataract extraction status, left eye; Z79.01 Long term (current) use of anticoagulants; Z79.2 Long term (current) use of antibiotics; Z79.899 Other long term (current) drug therapy; Z98.890 Other specified postprocedural states; Z68.21 Body mass index [BMI] 21.0-21.9, adult
CPT/HCPCS: 33207; 36415; 70450; 71045; 72170; 73502; 80048; 80053; 81001; 82607; 82746; 83605; 83735; 84443; 84484; 85025; 85027; 85610; 85730; 86850; 86900; 86901; 87040; 87070; 87075; 87205; 87635; 93005; 93306; 93880; 99285

== ENCOUNTER 2021-10-03 19:28 | Inpatient (IN) | payer MEDICARE, BC ==
--- NOTE | 2021-10-03 20:26 | ED ---
General Adult HPI - General Chief complaint: Weakness Stated complaint: Failure to thrive, Weakness, Fall, Rib Injury Time Seen by Provider: 10/03/21 20:10 Source: family, EMS, RN notes reviewed, old records reviewed Mode of arrival: EMS Limitations: physical limitation - History of Present Illness Initial comments: 86-year-old male presents with family from [facility] with complaints of elevated white blood cell count. He was just discharged from the hospital 2 days ago after sustaining a fall with a right hip fracture and right arm fracture per family. He also had a pacemaker insertion. He developed urinary retention and a Bender catheter was placed at that time. Family states that his white blood cell count was elevated over 20,000 and they were concerned for urinary tract infection. -: days(s) (2) Associated Symptoms: loss of appetite, malaise, weakness - Related Data Home Medications Medication Instructions Recorded Confirmed Mupirocin 2% Oint [Bactroban 2% 1 applic TOPICAL BID 09/17/21 10/03/21 Oint] Spironolactone 12.5 mg PO DAILY@0800 09/17/21 10/03/21 Acetaminophen [Tylenol Arthritis] 650 mg PO Q4H PRN 10/03/21 10/03/21 Acetaminophen-Codeine 300-30mg 1 tab PO Q6HR PRN 10/03/21 10/03/21 [Tylenol w/codeine #3] Apixaban [Eliquis] 2.5 mg PO BID@0800,1700 10/03/21 10/03/21 Cyanocobalamin [Vitamin B-12] 1,000 mcg PO DAILY@0800 10/03/21 10/03/21 Ensure 1 can PO TID@0800,1200,1700 10/03/21 10/03/21 Magnesium Hydroxide [Milk of 2,400 mg PO DAILY PRN 10/03/21 10/03/21 Magnesia] Melatonin 10 mg PO HS@199910/03/21 10/03/21 Metoprolol Tartrate [Lopressor] 12.5 mg PO BID@0800,1700 10/03/21 10/03/21 Na Phos,M-B/Na Phos,Di-Ba [Fleet 133 ml RECTAL DAILY PRN 10/03/21 10/03/21 Adult] Sennosides-Docusate Sodium 2 tab PO HS@2100 10/03/21 10/03/21 [Senokot-S] Tamsulosin [Flomax] 0.4 mg PO DAILY@1700 10/03/21 10/03/21 bisacodyL [Dulcolax] 10 mg RECTAL DAILY PRN 10/03/21 10/03/21 fluPHENAZine [Prolixin] 0.5 mg PO BID@0800,1700 10/03/21 10/03/21 Allergies Allergy/AdvReac Type Severity Reaction Status Date / Time No Known Allergies Allergy Verified 10/03/21 19:32 Review of Systems ROS Statement: Those systems with pertinent positive or pertinent negative responses have been documented in the HPI. ROS Other: All systems not noted in ROS Statement are negative. Past Medical History Past Medical History: Hypertension Additional Past Medical History / Comment(s): Pacemaker placement 09/20/21, fall 09/27/21, History of Any Multi-Drug Resistant Organisms: None Reported Past Surgical History: Hernia Repair Additional Past Surgical History / Comment(s): bilateral cataract surgery, hip fracture with pin placement 09/28/21 Past Anesthesia/Blood Transfusion Reactions: No Reported Reaction Past Psychological History: No Psychological Hx Reported Smoking Status: Former smoker Past Alcohol Use History: None Reported Past Drug Use History: None Reported General Exam Limitations: physical limitation General appearance: alert, in no apparent distress Head exam: Present: atraumatic, normocephalic, normal inspection Eye exam: Absent: scleral icterus, conjunctival injection, periorbital swelling, periorbital tenderness ENT exam: Present: mucous membranes dry Neck exam: Absent: tenderness, meningismus Respiratory exam: Present: decreased breath sounds (poor inspiratory effort). Absent: respiratory distress, accessory muscle use Cardiovascular Exam: Present: regular rate GI/Abdominal exam: Present: soft. Absent: distended, tenderness exam: Present: circumcision, other (bender catheter) External exam: Absent: erythema, swelling, ecchymosis Extremities exam: Present: normal capillary refill Right Upper Arm exam: Present: tenderness, swelling, ecchymosis. Absent: full ROM Elbow exam: Present: tenderness, swelling, ecchymosis. Absent: full ROM Vascular: Present: normal capillary refill, radial pulse Neurological exam: Present: alert Skin exam: Present: warm, other (Pressure ulcers heals, bruising to right upper arm and elbow, bruising to right posterior hip and thigh). Absent: cyanosis, diaphoretic Course Vital Signs 10/03/21 10/03/21 10/03/21 19:45 22:00 23:00 Temperature 97.6 F Pulse Rate 78 105 H 101 H Respiratory 16 16 16 Rate Blood Pressure 109/67 115/77 O2 Sat by Pulse 92 L 96 Oximetry 10/04/21 00:00 Temperature Pulse Rate 97 Respiratory 16 Rate Blood Pressure 108/73 O2 Sat by Pulse 95 Oximetry EKG Findings - EKG Results: EKG shows: atrial fibrillation (Ventricular rate 97, QRS 0.92, QTC 0.435) Medical Decision Making - Medical Decision Making Patient [facility] from [facility] with occasional cough, weakness and elevated white blood cell count. He was discharged from the hospital on September 30 after a fall, sustaining a right hip fracture which was surgically repaired. He was also found to have a right humeral neck fracture at that time. Pt is in a sling for support. Recent pacemaker insertion September 20 of this year. During his hospitalization he developed urinary retention and a Bender catheter placed which remains intact draining marti urine. X-ray today shows some infiltrate and atelectasis of the left lower lobe new compared to old exam. Labs show leukocytosis. Hemoglobin of 8.1, hematocrit of 24.4. BUN of 66 with lactic acid of 2.5. Patient was given IV fluids. Troponin is elevated at 0.037, will trend troponin. EKG shows atrial fibrillation with a ventricular rate of 97. Patient will be admitted for a left lower lobe pneumonia, antibiotics started in the ER. Case discussed with Dr. Geronimo. - Lab Data Result diagrams: 10/03/21 22:35 10/03/21 22:35 Lab Results 10/03/21 10/03/21 10/03/21 Range/Units 20:19 22:35 22:35 WBC 18.3 H (3.8-10.6) k/uL RBC 2.48 L (4.30-5.90) m/uL Hgb 8.1 L (13.0-17.5) gm/dL Hct 24.4 L (39.0-53.0) % MCV 98.1 (80.0-100.0) fL MCH 32.4 (25.0-35.0) pg MCHC 33.1 (31.0-37.0) g/dL RDW 14.2 (11.5-15.5) % Plt Count 423 D (150-450) k/uL MPV 8.6 Neutrophils % 93 % Lymphocytes % 3 % Monocytes % 3 % Eosinophils % 0 % Basophils % 0 % Neutrophils # 17.1 H (1.3-7.7) k/uL Lymphocytes # 0.5 L (1.0-4.8) k/uL Monocytes # 0.5 (0-1.0) k/uL Eosinophils # 0.0 (0-0.7) k/uL Basophils # 0.0 (0-0.2) k/uL Hypochromasia Slight PT 11.9 (9.0-12.0) sec INR 1.1 (<1.2) APTT 22.8 (22.0-30.0) sec Sodium (137-145) mmol/L Potassium (3.5-5.1) mmol/L Chloride (98-107) mmol/L Carbon Dioxide (22-30) mmol/L Anion Gap mmol/L BUN (9-20) mg/dL Creatinine (0.66-1.25) mg/dL Est GFR (CKD-EPI)AfAm (>60 ml/min/1.73 sqM) Est GFR (CKD-EPI)NonAf (>60 ml/min/1.73 sqM) Glucose (74-99) mg/dL Plasma Lactic Acid Shiva (0.7-2.0) mmol/L Calcium (8.4-10.2) mg/dL Magnesium (1.6-2.3) mg/dL Total Bilirubin (0.2-1.3) mg/dL AST (17-59) U/L ALT (4-49) U/L Alkaline Phosphatase (38-126) U/L Troponin I (0.000-0.034) ng/mL Total Protein (6.3-8.2) g/dL Albumin (3.5-5.0) g/dL Urine Color Yellow Urine Appearance Cloudy (Clear) Urine pH 5.5 (5.0-8.0) Ur Specific [place] 1.027 (1.001-1.035) Urine Protein 1+ H (Negative) Urine Glucose (UA) Negative (Negative) Urine Ketones Negative (Negative) Urine Blood Moderate H (Negative) Urine Nitrite Negative (Negative) Urine Bilirubin Negative (Negative) Urine Urobilinogen 2.0 (<2.0) mg/dL Ur Leukocyte Esterase Negative (Negative) Urine RBC 57 H (0-5) /hpf Urine WBC 4 (0-5) /hpf Ur Squamous Epith Cells <1 (0-4) /hpf Uric Acid Crystals Few H (None) /hpf Urine Bacteria Rare H (None) /hpf Hyaline Casts 1 (0-2) /lpf Urine Mucus Rare H (None) /hpf 10/03/21 10/03/21 10/03/21 Range/Units 22:35 22:35 22:35 WBC (3.8-10.6) k/uL RBC (4.30-5.90) m/uL Hgb (13.0-17.5) gm/dL Hct (39.0-53.0) % MCV (80.0-100.0) fL MCH (25.0-35.0) pg MCHC (31.0-37.0) g/dL RDW (11.5-15.5) % Plt Count (150-450) k/uL MPV Neutrophils % % Lymphocytes % % Monocytes % % Eosinophils % % Basophils % % Neutrophils # (1.3-7.7) k/uL Lymphocytes # (1.0-4.8) k/uL Monocytes # (0-1.0) k/uL Eosinophils # (0-0.7) k/uL Basophils # (0-0.2) k/uL Hypochromasia PT (9.0-12.0) sec INR (<1.2) APTT (22.0-30.0) sec Sodium 144 (137-145) mmol/L Potassium 3.8 (3.5-5.1) mmol/L Chloride 112 H (98-107) mmol/L Carbon Dioxide 23 (22-30) mmol/L Anion Gap 9 mmol/L BUN 66 H (9-20) mg/dL Creatinine 1.23 (0.66-1.25) mg/dL Est GFR (CKD-EPI)AfAm 61 (>60 ml/min/1.73 sqM) Est GFR (CKD-EPI)NonAf 53 (>60 ml/min/1.73 sqM) Glucose 162 H (74-99) mg/dL Plasma Lactic Acid Shiva 2.5 H* (0.7-2.0) mmol/L Calcium 8.2 L (8.4-10.2) mg/dL Magnesium 2.4 H (1.6-2.3) mg/dL Total Bilirubin 1.8 H (0.2-1.3) mg/dL AST 31 (17-59) U/L ALT 19 (4-49) U/L Alkaline Phosphatase 77 (38-126) U/L Troponin I 0.037 H* (0.000-0.034) ng/mL Total Protein 5.0 L (6.3-8.2) g/dL Albumin 2.9 L (3.5-5.0) g/dL Urine Color Urine Appearance (Clear) Urine pH (5.0-8.0) Ur Specific [place] (1.001-1.035) Urine Protein (Negative) Urine Glucose (UA) (Negative) Urine Ketones (Negative) Urine Blood (Negative) Urine Nitrite (Negative) Urine Bilirubin (Negative) Urine Urobilinogen (<2.0) mg/dL Ur Leukocyte Esterase (Negative) Urine RBC (0-5) /hpf Urine WBC (0-5) /hpf Ur Squamous Epith Cells (0-4) /hpf Uric Acid Crystals (None) /hpf Urine Bacteria (None) /hpf Hyaline Casts (0-2) /lpf Urine Mucus (None) /hpf Disposition Clinical Impression: Pneumonia, Elevated troponin, Lactic acidosis, Anemia Disposition: ADMITTED IP TO THIS [facility] Referrals: Rojelio Zuniga MD [Primary Care Provider] - 1-2 days Decision Date: 10/04/21 Decision Time: 00:40
[2021-10-03] MEDS ORDERED: LORazepam 2 MG/ML INJ IV STA (22:07)
--- NOTE | 2021-10-03 22:09 | XR ---
EXAMINATION TYPE: XR chest 2V DATE OF EXAM: 10/03/2021 COMPARISON: NONE HISTORY: Weakness TECHNIQUE: 2 views FINDINGS: There is some patchy infiltrate or atelectasis left lung base. No heart failure. There is l eft axillary pacemaker. No hilar masses. Thorax is intact. There are chest leads. IMPRESSION: There is some infiltrate and atelectasis left lower lobe that is mostly new compared to o ld exam. There is clearing of the right lower lobe pneumonia compared to old exam. No heart failure.
[2021-10-03] MEDS ORDERED: flUPHENAZine 2.5 MG/ML (MDV) 10 ML VIAL IM ONE (22:15)
[2021-10-03 23:15] LABS: Albumin 2.9 g/dL (3.5-5.0); Calcium 8.2 mg/dL (8.4-10.2); Magnesium 2.4 mg/dL (1.6-2.3); Potassium 3.8 mmol/L (3.5-5.1); Total Bilirubin 1.8 mg/dL (0.2-1.3)
[2021-10-03 23:16] LABS: INR 1.1 (<1.2); Partial Thromboplastin Time 22.8 sec (22.0-30.0); Prothrombin Time 11.9 sec (9.0-12.0)
[2021-10-03 23:34] LABS: Basophils % (A) 0 %; Eosinophils % (A) 0 %; HCT 24.4 % (39.0-53.0); HGB 8.1 gm/dL (13.0-17.5); Hypochromasia Slight; Lymphocytes # (A) 0.5 k/uL (1.0-4.8); Lymphocytes % (A) 3 %; MCH 32.4 pg (25.0-35.0); MCHC 33.1 g/dL (31.0-37.0); MCV 98.1 fL (80.0-100.0); Mean Platelet Volume 8.6; Monocytes # (A) 0.5 k/uL (0-1.0); Monocytes % (A) 3 %; Neutrophils # (A) 17.1 k/uL (1.3-7.7); Neutrophils % (A) 93 %; RBC 2.48 m/uL (4.30-5.90); RDW 14.2 % (11.5-15.5); WBC 18.3 k/uL (3.8-10.6)
[2021-10-03 23:37] LABS: Platelet Count 423 k/uL (150-450)
[2021-10-03] MEDS ORDERED: SODIUM CHLORIDE 0.9% 500 ML 500 ML IV ONE (23:56)
[2021-10-03] MEDS ORDERED: AZITHROMYCIN 500 MG in SODIUM CHLORIDE 0.9% 250 ML IVPB STA (23:57)
[2021-10-03 23:58] LABS: Appearance,Urine Cloudy (Clear); Bacteria,Urine Rare /hpf; Bilirubin,Urine Negative (Negative); Blood,Urine Moderate (Negative); Color,Urine Yellow; Glucose,Urine (UA) Negative (Negative); Hyaline Casts,Urine 1 /lpf (0-2); Ketones,Urine Negative (Negative); Leukocyte Esterase,Urine Negative (Negative); Mucus,Urine Rare /hpf; Nitrite,Urine Negative (Negative); PH, Urine 5.5 (5.0-8.0); Protein,Urine 1+ (Negative); RBC,Urine 57 /hpf (0-5); Specific Gravity,Urine 1.027 (1.001-1.035); Squamous Epithelial Cell,Urine <1 /hpf (0-4); Uric Acid Crystals,Urine Few /hpf; WBC,Urine 4 /hpf (0-5)
[2021-10-04] MEDS ORDERED: PNEUMONIA PROTOCOL UTILIZED 1 EACH MISC PO PRN (00:29)
[2021-10-04] MEDS ORDERED: NA PHOS,M-B/NA PHOS,DI-BA 133 ML ENEMA RECTAL PRN (00:32)
[2021-10-04] MEDS ORDERED: bisacodyL 10 MG SUPP RECTAL PRN (00:32)
[2021-10-04] MEDS ORDERED: MAGNESIUM HYDROXIDE 2,400 MG/10 ML CUP PO PRN (00:32)
[2021-10-04] MEDS ORDERED: ACETAMINOPHEN TAB 325 MG TAB PO PRN (00:32)
[2021-10-04] MEDS ORDERED: NON FORMULARY DRUG (Ensure 1 CAN Ml) PO SCH (08:00)
[2021-10-04] MEDS ORDERED: VANCOMYCIN IV PER PHARMACY 1 EACH MISC MISCELLANE PRN (08:38)
[2021-10-04] MEDS ORDERED: VANCOMYCIN 1,000 MG in SODIUM CHLORIDE 0.9% 250 ML IVPB ONE (09:00)
--- NOTE | 2021-10-04 12:14 | XR ---
EXAMINATION TYPE: XR Hip Limited RT DATE OF EXAM: 10/04/2021 CLINICAL HISTORY: Left hip pain and osteoarthritis. TECHNIQUE: Single AP portable view of right hip is obtained immediately postoperatively. COMPARISON: None. FINDINGS: Dynamic compression screw and intramedullary billy right hip status post intertrochanteric fr acture. Appropriate alignment. IMPRESSION: As above
[2021-10-04] MEDS: APIXABAN 2.5 MG TABLET PO SCH ×2 (13:30→20:35)
[2021-10-04] MEDS: CYANOCOBALAMIN 500 MCG TAB PO SCH (13:30)
[2021-10-04] MEDS: METOPROLOL TARTRATE 12.5 MG TAB PO SCH ×2 (13:30→20:33)
--- NOTE | 2021-10-04 14:16 | CONS ---
CONSULTATION Rojelio Dalton is an 86-year-old gentleman with a recent diagnosis of atrial fibrillation sometime in June on Eliquis 2.5 mg b.i.d. He also had an episode of syncope, fall requiring a permanent pacemaker late August. Following the pacemaker he had a slip and fall and had a fracture of the right hip for which he had surgery about 10 days ago. He was in [facility], but was not eating well, failure to thrive, comes in with dehydration and poor oral intake and question of pneumonia. His white count was also up to 20,000 and patient has pneumonia on the chest x-ray. I was asked to see him because of a troponin elevation. The two values are 0.03 and 0.04, both of which are unremarkable in the clinical setting. His lactic acidosis 2.5 has also come down to 2.0. He is not very communicative. His family is around him. I have a feeling he is intravascularly volume depleted and also has pneumonia. I do not believe we are dealing with primary myocardial injury. His pacemaker site is clean and dry and he is currently in atrial fib rate is in the 70s. Please refer to the detailed H and P and other notes. PAST MEDICAL HISTORY: Remarkable for a pacemaker placement on September 20 for sick sinus syndrome and syncope. He also has hypertension, hernia repair and recent diagnosis of atrial fibrillation. PHYSICAL EXAMINATION: On examination, blood pressure is 120/70, pulse rate is about 80, irregular. HEENT unremarkable. Fundus was not examined by me. Neck is supple. No JVD. I cannot hear a carotid bruit. Heart exam reveals S1, S2 with a short systolic murmur. Lungs reveal diminished air entry. ABDOMEN is soft, nontender. Lower extremities reveal diminished pulses. Central nervous system: Did not do a detailed examination. IMPRESSION: 1. Atrial fibrillation with a controlled ventricular rate. 2. Pneumonia. 3. Dehydration. RECOMMENDATIONS: I am recommending hydration of 100 mL/hour normal saline and then decrease it to 50 mL/hour thereafter. Agree with the current antibiotics. I will continue to see the patient as needed. Thank you very much for the consult. MMODL / IJN: [id number] /
[2021-10-04] MEDS: SPIRONOLACTONE 25 MG TAB PO SCH (14:28)
--- NOTE | 2021-10-04 14:43 | P.HPIM ---
History of Present Illness H&P Date: 10/04/21 HISTORY OF PRESENT ILLNESS This is an 86-year-old male patient with past medical history of paroxysmal atrial fibrillation on eliquis, tachybradycardia syndrome status post pacemaker, hypertension, urinary retention, patient was recently hospitalized for an extended period regarding A. fib with RVR, lower extremity and cellulitis and metabolic encephalopathy. Unfortunately patient had a fall while hospitalized and sustained a right femur fracture and a right humerus fracture status post IM nail of the right hip on 09/28. Patient was stabilized and discharged to [facility] on Sunday for subacute rehab. Unfortunately, patient did not do well at the retirement was found to have elevated WBC and there is concern for urinary tract infection, occasional cough, loss of appetite, malaise and weakness and patient was sent back to [facility] emergency center for further evaluation. Patient was found to be afebrile, heart rate 78-105, blood pressure 109/67, p ulse ox 92% on room air. EKG is atrial fibrillation at a ventricular rate of 97 bpm. WBC 18.3, hemoglobin 8.1, platelet count 423. Sodium 144, potassium 3.8, chloride 112, CO2 23, BUN 66, creatinine 1.23. Blood sugar 162. Urinalysis was cloudy, blood moderate, leukoesterase negative, nitrate negative. RBCs 57, WBC 4. Lactic acid 2.5 and repeat 2.0. Albumin 2.9. Troponin 0.037 and 0.041. Chest x-ray reveals some infiltrate and atelectasis left lower lobe that is mostly new compared to old exam. Clearing of the right lower lobe pneumonia. No heart failure. Right hip x-ray reveals dynamic compression screw and intramedullary billy right hip status post intertrochanteric fracture. Appropriate alignment. Patient is seen today in the emergency center waiting for a bed on the cardiac stepdown unit. He has received 1 dose of azithromycin and ceftriaxone, status post 1 dose of IM Prolixin and IV fluid bolus of 500 mL of 0.9 normal saline. Patient's daughter Sherie contacted by Dr. Zuniga over the phone after evaluation. REVIEW OF SYSTEMS Constitutional: No fever, no chills, no night sweats. No weight change. Noted weakness, reported fatigue reported lethargy. Noted daytime sleepiness. EENT: No headache. No blurred vision or double vision, no loss of vision. Chronic loss of Hearing. No nasal drainage or congestion. No epistaxis. No sore throat. Lungs: No shortness of breath, cough, no sputum production. No wheezing. Cardiovascular: No chest pain, no lower extremity edema. No palpitations. No paroxysmal nocturnal dyspnea. No orthopnea. No lightheadedness or dizziness. No syncopal episodes. Abdominal: No abdominal pain. No nausea, vomiting. No diarrhea. No constipation. No bloody or tarry stools. No loss of appetite. Genitourinary: No dysuria, increased frequency, urgency. No urinary retention. Musculoskeletal: No myalgias. Noted muscle weakness, noted gait dysfunction, no frequent falls. No back pain. No neck pain. Integumentary: Noted right hip surgical wounds with copious drainage, no lesions. No rash or pruritus. No unusual bruising. No change in hair or nails. Neurologic: No aphasia. No facial droop. Noted change in mentation. No head injury. No headache. No paralysis. No paresthesia. Psychiatric: No depression. No anxiety. No mood swings. Endocrine: No abnormal blood sugars. No weight change. No excessive sweating or thirst. No cold intolerance. SOCIAL HISTORY Patient was a smoker for 45 years and quit 50 years ago. No alcohol abuse. No marijuana or illicit drug use. FAMILY HISTORY Mother at age 80 from myocardial infarction. Father in his 70s from dementia. Patient is an only child. He has 2 children with no major medical problems.. PHYSICAL EXAMINATION Gen: This is an 86-year-old male. HEENT: Head is atraumatic, normocephalic. Pupils equal, round. Sclerae is anicteric. NECK: Supple. No JVD. No lymphadenopathy. No thyromegaly. LUNGS: Clear to auscultation. No wheezes or rhonchi. No intercostal retractions. HEART: Irregular rate and rhythm. No murmur. ABDOMEN: Soft. Bowel sounds are present. No masses. No tenderness. EXTREMITIES: No pedal edema. No calf tenderness. Right hip wounds have dedrick in place edges are well approximated, no erythema. There is copious amount of yellow drainage from both surgical wound sites. NEUROLOGICAL: Patient is awake to verbal stimuli, oriented to person, unable to follow commands appropriately due to significant confusion. ASSESSMENT AND PLAN Sepsis secondary to Left lower lobe pneumonia. Patient started on vancomycin and Zosyn, , consult with Dr. Rivera. Elevated troponins. Cardiology consult. Lactic acidosis secondary to sepsis. Resolved. Metabolic encephalopathy secondary to sepsis. Recent right femur fracture with significant drainage. X-ray as noted, consult with Dr. Brennan. Paroxysmal atrial fibrillation. Continue patient on eliquis 2.5 mg twice daily, Lopressor 12.5 mg twice daily. History of tachybradycardia syndrome status post pacemaker insertion on 09/20, stable. Urinary retention requiring M[place] catheter. No sign of UTI on urinalysis. Generalized weakness and debility. Patient will be resumed on PT and OT once medically stable. History of acute delirium. Continue Prolixin 0.5 mg twice daily. History of hypertension. Continue Aldactone 12.5 mg daily, Lopressor 12.5 mg twice daily. GI prophylaxis. Protonix. DVT prophylaxis. Eliquis. Patient will be admitted to the hospital for a minimum of 2 night stay. DISCHARGE PLAN Return to [facility] for subacute rehab once medically stable. Impression and plan of care have been directed as dictated by the signing physician. Navya Caraballo nurse practitioner acting as scribe for signing physic paola. Past Medical History Past Medical History: Hypertension Additional Past Medical History / Comment(s): Pacemaker placement 09/20/21, fall 09/27/21, History of Any Multi-Drug Resistant Organisms: None Reported Past Surgical History: Hernia Repair Additional Past Surgical History / Comment(s): bilateral cataract surgery, hip fracture with pin placement 09/28/21 Past Anesthesia/Blood Transfusion Reactions: No Reported Reaction Past Psychological History: No Psychological Hx Reported Smoking Status: Former smoker Past Alcohol Use History: None Reported Past Drug Use History: None Reported - Past Family History Father Additional Family Medical History / Comment(s): Father had several health problems but pt's son unable to recall types. Mother Additional Family Medical History / Comment(s): Pt's mother had heart issues. Medications and Allergies Home Medications Medication Instructions Recorded Confirmed Type Mupirocin 2% Oint [Bactroban 2% 1 applic TOPICAL BID 09/17/21 10/03/21 History Oint] Spironolactone 12.5 mg PO DAILY@0800 09/17/21 10/03/21 History Acetaminophen [Tylenol Arthritis] 650 mg PO Q4H PRN 10/03/21 10/03/21 History Acetaminophen-Codeine 300-30mg 1 tab PO Q6HR PRN 10/03/21 10/03/21 History [Tylenol w/codeine #3] Apixaban [Eliquis] 2.5 mg PO BID@0800,1700 10/03/21 10/03/21 History Cyanocobalamin [Vitamin B-12] 1,000 mcg PO DAILY@0800 10/03/21 10/03/21 History Ensure 1 can PO TID@0800,1200,1700 10/03/21 10/03/21 History Magnesium Hydroxide [Milk of 2,400 mg PO DAILY PRN 10/03/21 10/03/21 History Magnesia] Melatonin 10 mg PO HS@199910/03/21 10/03/21 History Metoprolol Tartrate [Lopressor] 12.5 mg PO BID@0800,1700 10/03/21 10/03/21 History Na Phos,M-B/Na Phos,Di-Ba [Fleet 133 ml RECTAL DAILY PRN 10/03/21 10/03/21 Hi story Adult] Sennosides-Docusate Sodium 2 tab PO HS@2100 10/03/21 10/03/21 History [Senokot-S] Tamsulosin [Flomax] 0.4 mg PO DAILY@1700 10/03/21 10/03/21 History bisacodyL [Dulcolax] 10 mg RECTAL DAILY PRN 10/03/21 10/03/21 History fluPHENAZine [Prolixin] 0.5 mg PO BID@0800,1700 10/03/21 10/03/21 History Mirtazapine [Remeron] 7.5 mg PO HS #30 tab 10/11/21 Rx Pantoprazole [Protonix] 40 mg PO AC-BRKFST #30 tab 10/11/21 Rx Allergies Allergy/AdvReac Type Severity Reaction Status Date / Time No Known Allergies Allergy Verified 10/03/21 19:32 Physical Exam Vitals: Vital Signs Temp Pulse Pulse Resp BP BP Pulse Ox 10/04/21 08:00 98.5 F 89 15 103/57 94 L 10/04/21 06:00 96 16 124/72 96 10/04/21 04:00 85 16 123/61 96 10/04/21 03:00 93 16 96 10/04/21 02:00 100 16 96 10/04/21 01:00 93 16 10/04/21 00:00 97 16 108/73 95 10/03/21 23:00 101 H 16 115/77 96 10/03/21 22:00 105 H 16 10/03/21 19:45 97.6 F 78 16 109/67 92 L Intake and Output 10/03/21 10/04/21 10/04/21 22:59 06:59 14:59 Other: Weight 60 kg Results CBC & Chem 7: 10/08/21 07:44 10/08/21 07:44 Labs: Abnormal Lab Results - Last 24 Hours (Table) 10/03/21 10/03/21 10/03/21 Range/Units 20:19 22:35 22:35 WBC 18.3 H (3.8-10.6) k/uL RBC 2.48 L (4.30-5.90) m/uL Hgb 8.1 L (13.0-17.5) gm/dL Hct 24.4 L (39.0-53.0) % Neutrophils # 17.1 H (1.3-7.7) k/uL Lymphocytes # 0.5 L (1.0-4.8) k/uL Chloride 112 H (98-107) mmol/L BUN 66 H (9-20) mg/dL Glucose 162 H (74-99) mg/dL Plasma Lactic Acid Shiva (0.7-2.0) mmol/L Calcium 8.2 L (8.4-10.2) mg/dL Magnesium 2.4 H (1.6-2.3) mg/dL Total Bilirubin 1.8 H (0.2-1.3) mg/dL Troponin I (0.000-0.034) ng/mL Total Protein 5.0 L (6.3-8.2) g/dL Albumin 2.9 L (3.5-5.0) g/dL Urine Protein 1+ H (Negative) Urine Blood Moderate H (Negative) Urine RBC 57 H (0-5) /hpf Uric Acid Crystals Few H (None) /hpf Urine Bacteria Rare H (None) /hpf Urine Mucus Rare H (None) /hpf 10/03/21 10/03/21 10/04/21 Range/Units 22:35 22:35 02:17 WBC (3.8-10.6) k/uL RBC (4.30-5.90) m/uL Hgb (13.0-17.5) gm/dL Hct (39.0-53.0) % Neutrophils # (1.3-7.7) k/uL Lymphocytes # (1.0-4.8) k/uL Chloride (98-107) mmol/L BUN (9-20) mg/dL Glucose (74-99) mg/dL Plasma Lactic Acid Shiva 2.5 H* (0.7-2.0) mmol/L Calcium (8.4-10.2) mg/dL Magnesium (1.6-2.3) mg/dL Total Bilirubin (0.2-1.3) mg/dL Troponin I 0.037 H* 0.041 H* (0.000-0.034) ng/mL Total Protein (6.3-8.2) g/dL Albumin (3.5-5.0) g/dL Urine Protein (Negative) Urine Blood (Negative) Urine RBC (0-5) /hpf Uric Acid Crystals (None) /hpf Urine Bacteria (None) /hpf Urine Mucus (None) /hpf
[2021-10-04] MEDS: MUPIROCIN 2% OINT 22 GM TUBE TOPICAL SCH ×2 (14:48→21:07)
[2021-10-04] MEDS: PIPERACILLIN-TAZOBACTAM 3.375 GM in SODIUM CHLORIDE 0.9% 100 ML IVPB SCH ×3 (14:49→23:19)
[2021-10-04] MEDS: SODIUM CHLORIDE 0.9% 1,000 ML IV SCH (15:33)
[2021-10-04] MEDS: TAMSULOSIN 0.4 MG CAP.ER.24H PO SCH (17:23)
[2021-10-04] MEDS: MELATONIN 5 MG TABLET PO SCH (20:33)
[2021-10-04] MEDS: SENNOSIDES-DOCUSATE SODIUM 1 EACH TAB PO SCH (20:34)
--- NOTE | 2021-10-04 20:54 | P.CNOR ---
History of Present Illness - [facility] Consult date: 10/04/21 Consult reason: other History of present illness: Patient is 86 yo male seen at bedside this am in the ED regarding his right hip. Family is at bedside and provide history as patient is unable due to mental status. He was discharged o 09/30/21 after undergoing an IM nail for right hip fracture per Dr. Brennan. He also suffered right Proximal humerus fracture and rib fractures while as inpatient after having pacemaker implant. He was brought back from [facility] yesterday 10/03/21 due to change/decline in mental status and elevated WBC. There is No new reported injury to right hip or fall. Review of Systems ROS unobtainable: due to mental status Past Medical History Past Medical History: Hypertension Additional Past Medical History / Comment(s): Pacemaker placement 09/20/21, fall 09/27/21, History of Any Multi-Drug Resistant Organisms: None Reported Past Surgical History: Hernia Repair Additional Past Surgical History / Comment(s): bilateral cataract surgery, hip fracture with pin placement 09/28/21 Past Anesthesia/Blood Transfusion Reactions: No Reported Reaction Past Psychological History: No Psychological Hx Reported Smoking Status: Former smoker Past Alcohol Use History: None Reported Past Drug Use History: None Reported - Past Family History Father Additional Family Medical History / Comment(s): Father had several health problems but pt's son unable to recall types. Mother Additional Family Medical History / Comment(s): Pt's mother had heart issues. Medications and Allergies Home Medications Medication Instructions Recorded Confirmed Type Mupirocin 2% Oint [Bactroban 2% 1 applic TOPICAL BID 09/17/21 10/03/21 History Oint] Spironolactone 12.5 mg PO DAILY@0800 09/17/21 10/03/21 History Acetaminophen [Tylenol Arthritis] 650 mg PO Q4H PRN 10/03/21 10/03/21 History Acetaminophen-Codeine 300-30mg 1 tab PO Q6HR PRN 10/03/21 10/03/21 History [Tylenol w/codeine #3] Apixaban [Eliquis] 2.5 mg PO BID@0800,1700 10/03/21 10/03/21 History Cyanocobalamin [Vitamin B-12] 1,000 mcg PO DAILY@0800 10/03/21 10/03/21 History Ensure 1 can PO TID@0800,1200,1700 10/03/21 10/03/21 History Magnesium Hydroxide [Milk of 2,400 mg PO DAILY PRN 10/03/21 10/03/21 History Magnesia] Melatonin 10 mg PO HS@2000 10/03/21 10/03/21 History Metoprolol Tartrate [Lopressor] 12.5 mg PO BID@0800,1700 10/03/21 10/03/21 History Na Phos,M-B/Na Phos,Di-Ba [Fleet 133 ml RECTAL DAILY PRN 10/03/21 10/03/21 History Adult] Sennosides-Docusate Sodium 2 tab PO HS@2100 10/03/21 10/03/21 History [Senokot-S] Tamsulosin [Flomax] 0.4 mg PO DAILY@1700 10/03/21 10/03/21 History bisacodyL [Dulcolax] 10 mg RECTAL DAILY PRN 10/03/21 10/03/21 History fluPHENAZine [Prolixin] 0.5 mg PO BID@0800,1700 10/03/21 10/03/21 History Allergies Allergy/AdvReac Type Severity Reaction Status Date / Time No Known Allergies Allergy Verified 10/03/21 19:32 Physical Examination Inspection of Surgical wounds at right hip are intact with dedrick. There is mild serous/blood tinged drainage on dressing. No active bleeding, dehiscence or purulence noted. It is not hot and red. ROM and motor sensation not tested due to his status. He is not alert and oriented. pulses and capillary refill are present distally. Calf is soft Results - Labs Labs: Abnormal Lab Results - Last 24 Hours (Table) 10/03/21 10/03/21 10/03/21 Range/Units 20:19 22:35 22:35 WBC 18.3 H (3.8-10.6) k/uL RBC 2.48 L (4.30-5.90) m/uL Hgb 8.1 L (13.0-17.5) gm/dL Hct 24.4 L (39.0-53.0) % Neutrophils # 17.1 H (1.3-7.7) k/uL Lymphocytes # 0.5 L (1.0-4.8) k/uL Chloride 112 H (98-107) mmol/L BUN 66 H (9-20) mg/dL Glucose 162 H (74-99) mg/dL Plasma Lactic Acid Shiva (0.7-2.0) mmol/L Calcium 8.2 L (8.4-10.2) mg/dL Magnesium 2.4 H (1.6-2.3) mg/dL Total Bilirubin 1.8 H (0.2-1.3) mg/dL Troponin I (0.000-0.034) ng/mL Total Protein 5.0 L (6.3-8.2) g/dL Albumin 2.9 L (3.5-5.0) g/dL Urine Protein 1+ H (Negative) Urine Blood Moderate H (Negative) Urine RBC 57 H (0-5) /hpf Uric Acid Crystals Few H (None) /hpf Urine Bacteria Rare H (None) /hpf Urine Mucus Rare H (None) /hpf 10/03/21 10/03/21 10/04/21 Range/Units 22:35 22:35 02:17 WBC (3.8-10.6) k/uL RBC (4.30-5.90) m/uL Hgb (13.0-17.5) gm/dL Hct (39.0-53.0) % Neutrophils # (1.3-7.7) k/uL Lymphocytes # (1.0-4.8) k/uL Chloride (98-107) mmol/L BUN (9-20) mg/dL Glucose (74-99) mg/dL Plasma Lactic Acid Shiva 2.5 H* (0.7-2.0) mmol/L Calcium (8.4-10.2) mg/dL Magnesium (1.6-2.3) mg/dL Total Bilirubin (0.2-1.3) mg/dL Troponin I 0.037 H* 0.041 H* (0.000-0.034) ng/mL Total Protein (6.3-8.2) g/dL Albumin (3.5-5.0) g/dL Urine Protein (Negative) Urine Blood (Negative) Urine RBC (0-5) /hpf Uric Acid Crystals (None) /hpf Urine Bacteria (None) /hpf Urine Mucus (None) /hpf H & H 10/03/21 Range/Units 22:35 Hgb 8.1 L (13.0-17.5) gm/dL Hct 24.4 L (39.0-53.0) % Coagulation 10/03/21 Range/Units 22:35 INR 1.1 (<1.2) Result Diagrams: 10/03/21 22:35 10/03/21 22:35 Assessment and Plan (1) Closed intertrochanteric fracture of right hip Narrative/Plan: Patient discussed with Dr. Melendez. We Don't believe his hip is source of infection. Will continue to follow closely. Hip xray is ordered. Will make further recommendations as appropriate Current Visit: No Status: Acute Code(s): S72.141A - DISPLACED INTERTROCHANTERIC FRACTURE OF RIGHT FEMUR, INIT SNOMED Code(s): 43644097 Time with Patient: Less than 30
[2021-10-04] MEDS ORDERED: VANCOMYCIN 1,000 MG in SODIUM CHLORIDE 0.9% 250 ML IVPB SCH (22:00)
[2021-10-05] MEDS: SODIUM CHLORIDE 0.9% 1,000 ML IV SCH ×2 (04:36→10:49)
[2021-10-05] MEDS: PANTOPRAZOLE 40 MG TABLET PO SCH (06:42)
--- NOTE | 2021-10-05 06:57 | P.CONS ---
History of Present Illness - Reason for Consult Consult date: 10/04/21 Sepsis UTI and pneumonia Requesting physician: Navya Caraballo - Chief Complaint Weakness and mental status changes x 1 day - History of Present Illness Patient is a 86-year-old male with a past medical he significant for paroxysmal atrial fibrillation with a recent admission to the hospital for tachybradycardia syndrome s/p pacemaker placement patient apparently did have a fall last admission and has sustained a right femoral fracture and right humerus fracture s/p IM nail on the right hip on 09/28/2021 patient was subsequently discharged to the [facility] for rehabilitation about 4 days ago patient was not doing well at the halfway and was noticed to have elevated white count concerning for UTI for the patient has been transferred to [facility] ER for further evaluation history has been obtained mostly from the family at the bedside patient apparently has been not as responsible lethargic he did have a mild dry cough no clear history of any choking on the food, no nausea no vomiting no clear history of any abdominal pain or diarrhea, patient on presentation to the hospital was afebrile and no fever have been recorded subsequently mild hypoxemia with O2 sats of 92% on room air currently on 2 L nasal cannula satting 97% patient did have a white count of 18.3 with a left shift creatinine has been normal it was mildly elevated but within the normal troponins are elevated urine was negative patient did have a chest x-ray left lower lobe atelectasis mostly new compared to old exam patient was started on vancomycin and Zosyn admitted to hospital infectious disease was consulted for further management patient seem to have some superficial ulceration to bilateral lower extremity however no significant redness or any drainage reported Review of Systems Positive points has been mentioned in HPI complete review could not be obtained because of his underlying mental status Past Medical History Past Medical History: Hypertension Additional Past Medical History / Comment(s): Pacemaker placement 09/20/21, fall 09/27/21, History of Any Multi-Drug Resistant Organisms: None Reported Past Surgical History: Hernia Repair Additional Past Surgical History / Comment(s): bilateral cataract surgery, hip fracture with pin placement 09/28/21 Past Anesthesia/Blood Transfusion Reactions: No Reported Reaction Type of Cardiac Device: Permanent Pacemaker Device Placement Date:: 09/20/21 Past Psychological History: No Psychological Hx Reported Smoking Status: Former smoker Past Alcohol Use History: None Reported Past Drug Use History: None Reported - Past Family History Father Additional Family Medical History / Comment(s): Father had several health problems but pt's son unable to recall types. Mother Additional Family Medical History / Comment(s): Pt's mother had heart issues. Medications and Allergies Home Medications Medication Instructions Recorded Confirmed Type Mupirocin 2% Oint [Bactroban 2% 1 applic TOPICAL BID 09/17/21 10/03/21 History Oint] Spironolactone 12.5 mg PO DAILY@0800 09/17/21 10/03/21 History Acetaminophen [Tylenol Arthritis] 650 mg PO Q4H PRN 10/03/21 10/03/21 History Acetaminophen-Codeine 300-30mg 1 tab PO Q6HR PRN 10/03/21 10/03/21 History [Tylenol w/codeine #3] Apixaban [Eliquis] 2.5 mg PO BID@0800,1700 10/03/21 10/03/21 History Cyanocobalamin [Vitamin B-12] 1,000 mcg PO DAILY@0800 10/03/21 10/03/21 History Ensure 1 can PO TID@0800,1200,0 10/03/21 10/03/21 History Magnesium Hydroxide [Milk of 2,400 mg PO DAILY PRN 10/03/21 10/03/21 History Magnesia] Melatonin 10 mg PO HS@199910/03/21 10/03/21 History Metoprolol Tartrate [Lopressor] 12.5 mg PO BID@0800,1700 10/03/21 10/03/21 History Na Phos,M-B/Na Phos,Di-Ba [Fleet 133 ml RECTAL DAILY PRN 10/03/21 10/03/21 History Adult] Sennosides-Docusate Sodium 2 tab PO HS@2100 10/03/21 10/03/21 History [Senokot-S] Tamsulosin [Flomax] 0.4 mg PO DAILY@0 10/03/21 10/03/21 History bisacodyL [Dulcolax] 10 mg RECTAL DAILY PRN 10/03/21 10/03/21 History fluPHENAZine [Prolixin] 0.5 mg PO BID@0800,1700 10/03/21 10/03/21 History Allergies Allergy/AdvReac Type Severity Reaction Status Date / Time No Known Allergies Allergy Verified 10/03/21 19:32 Physical Exam Vitals: Vital Signs Temp Pulse Pulse Resp BP BP Pulse Ox 10/04/21 14:00 94 16 10/04/21 12:10 97.5 F L 94 16 127/60 97 10/04/21 08:00 98.5 F 89 15 103/57 94 L 10/04/21 06:00 96 16 124/72 96 10/04/21 04:00 85 16 123/61 96 10/04/21 03:00 93 16 96 10/04/21 02:00 100 16 96 10/04/21 01:00 93 16 10/04/21 00:00 97 16 108/73 95 10/03/21 23:00 101 H 16 115/77 96 10/03/21 22:00 105 H 16 10/03/21 19:45 97.6 F 78 16 109/67 92 L Intake and Output 10/03/21 10/04/21 10/04/21 22:59 06:59 14:59 Other: Voiding Method Indwelling Catheter Weight 60 kg 60 kg GENERAL DESCRIPTION: Elderly male lying in bed, no distress. No tachypnea or accessory muscle of respiration use. HEENT: Shows Pallor , no scleral icterus. Oral mucous membrane is dry. No pharyngeal erythema or thrush NECK: Trachea central, no thyromegaly. LUNGS: Unlabored breathing. Decreased breath sounds at the base. No wheeze or crackle. HEART: S1, S2, regular rate and rhythm. No loud murmur ABDOMEN: Soft, no tenderness , guarding or rigidity, no organomegaly EXTREMITIES: Bilateral lower extremity did have superficial ulceration no redness. SKIN: No rash, no masses palpable. NEUROLOGICAL: The patient is lethargic orientation could not be determined. Results CBC & Chem 7: 10/06/21 08:01 10/06/21 08:01 Labs: Abnormal Lab Results - Last 24 Hours (Table) 10/03/21 10/03/21 10/03/21 Range/Units 20:19 22:35 22:35 WBC 18.3 H (3.8-10.6) k/uL RBC 2.48 L (4.30-5.90) m/uL Hgb 8.1 L (13.0-17.5) gm/dL Hct 24.4 L (39.0-53.0) % Neutrophils # 17.1 H (1.3-7.7) k/uL Lymphocytes # 0.5 L (1.0-4.8) k/uL Chloride 112 H (98-107) mmol/L BUN 66 H (9-20) mg/dL Glucose 162 H (74-99) mg/dL Plasma Lactic Acid Shiva (0.7-2.0) mmol/L Calcium 8.2 L (8.4-10.2) mg/dL Magnesium 2.4 H (1.6-2.3) mg/dL Total Bilirubin 1.8 H (0.2-1.3) mg/dL Troponin I (0.000-0.034) ng/mL Total Protein 5.0 L (6.3-8.2) g/dL Albumin 2.9 L (3.5-5.0) g/dL Urine Protein 1+ H (Negative) Urine Blood Moderate H (Negative) Urine RBC 57 H (0-5) /hpf Uric Acid Crystals Few H (None) /hpf Urine Bacteria Rare H (None) /hpf Urine Mucus Rare H (None) /hpf 10/03/21 10/03/21 10/04/21 Range/Units 22:35 22:35 02:17 WBC (3.8-10.6) k/uL RBC (4.30-5.90) m/uL Hgb (13.0-17.5) gm/dL Hct (39.0-53.0) % Neutrophils # (1.3-7.7) k/uL Lymphocytes # (1.0-4.8) k/uL Chloride (98-107) mmol/L BUN (9-20) mg/dL Glucose (74-99) mg/dL Plasma Lactic Acid Shiva 2.5 H* (0.7-2.0) mmol/L Calcium (8.4-10.2) mg/dL Magnesium (1.6-2.3) mg/dL Total Bilirubin (0.2-1.3) mg/dL Troponin I 0.037 H* 0.041 H* (0.000-0.034) ng/mL Total Protein (6.3-8.2) g/dL Albumin (3.5-5.0) g/dL Urine Protein (Negative) Urine Blood (Negative) Urine RBC (0-5) /hpf Uric Acid Crystals (None) /hpf Urine Bacteria (None) /hpf Urine Mucus (None) /hpf Assessment and Plan (1) Pneumonia Current Visit: Yes Status: Acute Code(s): J18.9 - PNEUMONIA, UNSPECIFIED ORGANISM SNOMED Code(s): 071997440 Plan: 1patient presented to hospital with weakness lethargy he did have a mild cough patient also have a elevated white count concerning for possible left lobe pneumonia possibly gram-negative versus aspiration will need to cover for the resistant gram-negative. 2patient did have some laceration to bilateral lower extremity but no evidence of any active cellulitis or wound infection. 3patient to continue with Zosyn however discontinue vancomycin to decrease risk of nephrotoxicity. 4try to obtain a sputum for gram stain culture check a procalcitonin and CRP. We will follow on clinical condition and cultures to further adjust medication if needed Thank you for this consultation will follow this patient along with you Time with Patient: Greater than 30
--- NOTE | 2021-10-05 07:36 | XR ---
EXAMINATION TYPE: XR chest 1V DATE OF EXAM: 10/05/2021 CLINICAL HISTORY: Pneumonia progress study. TECHNIQUE: Single AP portable upright view of the chest is obtained. COMPARISON: Chest x-ray from 2 days earlier FINDINGS: Persistent bibasilar opacities with some improved aeration left lung base. Stable heart si ze upper limits of normal with single lead pacemaker. Stable small to tiny left pleural effusion. Acu te/subacute comminuted slightly displaced fracture through right proximal humerus is redemonstrated a nd correlates with shoulder x-ray September 27. IMPRESSION: Stable small tiny left pleural effusion. Bibasilar acute infiltrate and/or atelectasis re betina present with slight improvement left lung base from most recent x-ray.
[2021-10-05 08:58] LABS: Basophils % (A) 0 %; Eosinophils % (A) 0 %; HCT 21.6 % (39.0-53.0); Hypochromasia Moderate; Lymphocytes # (A) 0.3 k/uL (1.0-4.8); Lymphocytes % (A) 4 %; MCHC 30.9 g/dL (31.0-37.0); MCV 100.5 fL (80.0-100.0); Macrocytosis Slight; Mean Platelet Volume 7.8; Monocytes # (A) 0.4 k/uL (0-1.0); Monocytes % (A) 5 %; Neutrophils # (A) 6.5 k/uL (1.3-7.7); Neutrophils % (A) 88 %; Platelet Count 369 k/uL (150-450); RBC 2.15 m/uL (4.30-5.90); RDW 14.4 % (11.5-15.5); WBC 7.4 k/uL (3.8-10.6)
[2021-10-05 09:10] LABS: C Reactive Protein 6.6 mg/dL (<1.0); Calcium 7.1 mg/dL (8.4-10.2); Potassium 3.8 mmol/L (3.5-5.1)
[2021-10-05 09:13] LABS: HGB 6.7 gm/dL (13.0-17.5)
[2021-10-05] MEDS: APIXABAN 2.5 MG TABLET PO SCH ×2 (09:48→22:07)
[2021-10-05] MEDS: SPIRONOLACTONE 25 MG TAB PO SCH (09:48)
[2021-10-05] MEDS: PIPERACILLIN-TAZOBACTAM 3.375 GM in SODIUM CHLORIDE 0.9% 100 ML IVPB SCH ×2 (09:48→17:02)
[2021-10-05] MEDS: METOPROLOL TARTRATE 12.5 MG TAB PO SCH ×2 (09:49→22:11)
[2021-10-05] MEDS: MUPIROCIN 2% OINT 22 GM TUBE TOPICAL SCH ×2 (09:49→22:07)
[2021-10-05] MEDS: CYANOCOBALAMIN 500 MCG TAB PO SCH (09:49)
--- NOTE | 2021-10-05 10:59 | P.PN ---
Subjective Progress Note Date: 10/05/21 HISTORY OF PRESENT ILLNESS This is an 86-year-old male patient with past medical history of paroxysmal atrial fibrillation on eliquis, tachybradycardia syndrome status post pacemaker, hypertension, urinary retention, patient was recently hospitalized for an extended period regarding A. fib with RVR, lower extremity and cellulitis and metabolic encephalopathy. Unfortunately patient had a fall while hospitalized and sustained a right femur fracture and a right humerus fracture status post IM nail of the right hip on 09/28. Patient was stabilized and discharged to [facility] on Sunday for subacute rehab. Unfortunately, patient did not do well at the assisted was found to have elevated WBC and there is concern for urinary tract infection, occasional cough, loss of appetite, malaise and weakness and patient was sent back to [facility] emergency center for fur ther evaluation. Patient was found to be afebrile, heart rate 78-105, blood pressure 109/67, pulse ox 92% on room air. EKG is atrial fibrillation at a ventricular rate of 97 bpm. WBC 18.3, hemoglobin 8.1, platelet count 423. Sodium 144, potassium 3.8, chloride 112, CO2 23, BUN 66, creatinine 1.23. Blood sugar 162. Urinalysis was cloudy, blood moderate, leukoesterase negative, nitrate negative. RBCs 57, WBC 4. Lactic acid 2.5 and repeat 2.0. Albumin 2.9. Troponin 0.037 and 0.041. Chest x-ray reveals some infiltrate and atelectasis left lower lobe that is mostly new compared to old exam. Clearing of the right lower lobe pneumonia. No heart failure. Right hip x-ray reveals dynamic compression screw and intramedullary billy right hip status post intertrochanteric fracture. Appropriate alignment. Patient is seen today in the emergency center waiting for a bed on the cardiac stepdown unit. He has received 1 dose of azithromycin and ceftriaxone, status post 1 dose of IM Prolixin and IV fluid bolus of 500 mL of 0.9 normal saline. Patient's daughter Sherie contacted by Dr. Zuniga over the phone after evaluation. 07/06: Dr. Zuniga spoke with patient's daughter yesterday. Patient's son Flaco is at the bedside today. Plan is to continue aggressive treatment and full CODE STATUS. Blood culture came back positive for gram-positive cocci the patient did receive a dose of vancomycin and subsequently the blood culture was positive for coag-negative staph which is a contamination.. Hemoglobin came back today at 6.7 and patient will be transfused 1 unit of packed RBCs. Sodium is 148, chloride 123, BUN 53 creatinine 1.19. C-reactive protein 6.6. Patient is currently on IV Zosyn. IV fluids changed to D5W. Patient has been afebrile, heart rate 80, blood pressure 115/56, pulse ox 97% on 2 L nasal cannula. Patient has been seen by Dr. Rivera with recommendations to continue Zosyn. Patient has also been seen by cardiology for atrial fibrillation and following on an as-needed basis. Orthopedics has evaluated right hip and will follow closely. Hopefully, speech therapy will evaluate patient today. Repeat chest x-ray reveals stable small tiny left pleural effusion. Bibasilar acute infiltrate and/or atelectasis with slight improvement of left lung base. Patient's mental status is slightly improved from yesterday. REVIEW OF SYSTEMS Constitutional: No fever, no chills, no night sweats. No weight change. Noted weakness, reported fatigue reported lethargy. Noted daytime sleepiness. EENT: No headache. No blurred vision or double vision, no loss of vision. Chronic loss of Hearing. No nasal drainage or congestion. No epistaxis. No sore throat. Lungs: No shortness of breath, cough, no sputum production. No wheezing. Cardiovascular: No chest pain, no lower extremity edema. No palpitations. No paroxysmal nocturnal dyspnea. No orthopnea. No lightheadedness or dizziness. No syncopal episodes. Abdominal: No abdominal pain. No nausea, vomiting. No diarrhea. No constipation. No bloody or tarry stools. No loss of appetite. Genitourinary: No dysuria, increased frequency, urgency. No urinary retention. Musculoskeletal: No myalgias. Noted muscle weakness, noted gait dysfunction, no frequent falls. No back pain. No neck pain. Integumentary: Noted right hip surgical wounds with copious drainage, no lesions. No rash or pruritus. No unusual bruising. No change in hair or nails. Neurologic: No aphasia. No facial droop. Noted change in mentation. No head injury. No headache. No paralysis. No paresthesia. Psychiatric: No depression. No anxiety. No mood swings. Endocrine: No abnormal blood sugars. No weight change. No excessive sweating or thirst. PHYSICAL EXAMINATION Gen: This is an 86-year-old male resting in bed and appears to be comfortable. HEENT: Head is atraumatic, normocephalic. Pupils equal, round. Sclerae is anicteric. NECK: Supple. No JVD. No lymphadenopathy. No thyromegaly. LUNGS: Clear to auscultation. No wheezes or rhonchi. No intercostal retractions. HEART: Irregular rate and rhythm. No murmur. Pacemaker to the left anterior chest wall. ABDOMEN: Soft. Bowel sounds are present. No masses. No tenderness. Marmolejo catheter. EXTREMITIES: No pedal edema. No calf tenderness. Right hip wounds have dedrick in place edges are well approximated, no erythema. NEUROLOGICAL: Patient is awake to verbal stimuli, oriented to person, unable to follow commands appropriately due to significant confusion. ASSESSMENT AND PLAN Sepsis secondary to Left lower lobe pneumonia. Patient continued on Zosyn, consult with Dr. Rivera appreciated. Elevated troponins without acute coronary syndrome. Cardiology consult appreciated and signed off. Lactic acidosis secondary to sepsis. Resolved. Metabolic encephalopathy secondary to sepsis. Recent right femur fracture with significant drainage. X-ray as noted, consult with Dr. Brennan appreciated. Paroxysmal atrial fibrillation. Continue patient on eliquis 2.5 mg twice daily, Lopressor 12.5 mg twice daily. History of tachybradycardia syndrome status post pacemaker insertion on 09/20, stable. Urinary retention requiring Marmolejo catheter. No sign of UTI on urinalysis. Generalized weakness and debility. Patient will be resumed on PT and OT once medically stable. History of acute delirium. Continue Prolixin 0.5 mg twice daily. History of hypertension. Continue Aldactone 12.5 mg daily, Lopressor 12.5 mg twice daily. Possible aspiration. Speech therapy evaluation today. GI prophylaxis. Protonix. DVT prophylaxis. Eliquis. DISCHARGE PLAN Return to [facility] for subacute rehab once medically stable. Impression and plan of care have been directed as dictated by the signing physician. Navya Caraballo nurse practitioner acting as scribe for signing physician. Objective - Vital Signs Vital signs: Vital Signs Temp 98.7 F 10/05/21 04:00 Pulse 86 10/05/21 08:00 Resp 17 10/05/21 08:00 BP 92/54 10/05/21 04:00 Pulse Ox 97 10/05/21 04:00 FiO2 Intake & Output 10/04/21 10/05/21 10/05/21 18:59 06:59 18:59 Intake Total 1000 Output Total 800 500 Balance -800 500 Weight 60 kg Intake: Intake, IV Titration 1000 Amount Piperacillin-Tazobactam 3 100 .375 gm In Sodium Chloride 0.9% 100 ml @ 25 mls/hr IVPB Q8HR [facility] Rx# :[id number] Sodium Chloride 0.9% 1, 900 000 ml @ 100 mls/hr IV . Q10H [facility] Rx#:[id number] Output: Urine 800 500 Other: Voiding Method Indwelling Catheter Indwelling Catheter Indwelling Catheter - Labs CBC & Chem 7: 10/05/21 08:30 10/05/21 08:30 Labs: Microbiology - Last 24 Hours (Table) 10/03/21 22:35 Blood Culture Gram Stain - Preliminary Blood Blood Culture - Preliminary Coagulase Negative Staph 10/03/21 22:20 Blood Culture - Preliminary Blood No Growth after 24 hours 10/03/21 22:35 Blood Culture - Final Blood
[2021-10-05 11:28] VITALS: BMI 21.3
[2021-10-05] MEDS: DEXTROSE 5% IN WATER 1,000 ML IV SCH (12:20)
[2021-10-05] MEDS: TAMSULOSIN 0.4 MG CAP.ER.24H PO SCH (17:02)
--- NOTE | 2021-10-05 19:57 | PN ---
PROGRESS NOTE The patient was admitted yesterday with dehydration with IV fluids. He is feeling much better, hemodynamically stable. He has a lot of concomitant medical issues, but he is comfortable and he is responding to questions. His breathing is easier at this time. He has had hip fracture from which he is also healing. EKG revealed atrial fib with a controlled ventricular rate. We will continue current medical regimen, continue hydration and if he has any new cardiac issues or problems, I will come back and see him. His atrial fibrillation rate is well controlled and he is currently on some antibiotics also. We will continue apixaban 2.5 mg daily. PHYSICAL: Examination revealed no JVD. S1, S2 with a regular rhythm, short systolic murmur noted. Lungs reveal improved air entry. Abdomen and lower extremity exam is unchanged. I will continue to see the patient as needed. [id number] / CLARKN: [id number] /
[2021-10-05] MEDS: SENNOSIDES-DOCUSATE SODIUM 1 EACH TAB PO SCH (22:07)
[2021-10-05] MEDS: MELATONIN 5 MG TABLET PO SCH (22:07)
[2021-10-06] MEDS: PANTOPRAZOLE 40 MG TABLET PO SCH (06:23)
[2021-10-06] MEDS: DEXTROSE 5% IN WATER 1,000 ML IV SCH (06:41)
[2021-10-06 08:16] LABS: Anisocytosis Slight; HCT 25.8 % (39.0-53.0); Hypochromasia Marked; MCH 30.8 pg (25.0-35.0); MCHC 31.1 g/dL (31.0-37.0); MCV 98.8 fL (80.0-100.0); Macrocytosis Slight; Mean Platelet Volume 7.7; Platelet Count 352 k/uL (150-450); Poikilocytosis Slight; RBC 2.61 m/uL (4.30-5.90); WBC 7.8 k/uL (3.8-10.6)
[2021-10-06 08:29] LABS: Albumin 2.1 g/dL (3.5-5.0); Calcium 7.1 mg/dL (8.4-10.2); Potassium 3.8 mmol/L (3.5-5.1); Total Bilirubin 1.4 mg/dL (0.2-1.3); Total Protein 3.9 g/dL (6.3-8.2)
[2021-10-06] MEDS: MUPIROCIN 2% OINT 22 GM TUBE TOPICAL SCH ×2 (08:41→21:43)
[2021-10-06] MEDS: METOPROLOL TARTRATE 12.5 MG TAB PO SCH ×2 (09:30→21:42)
[2021-10-06] MEDS: SPIRONOLACTONE 25 MG TAB PO SCH (09:30)
[2021-10-06] MEDS: CYANOCOBALAMIN 500 MCG TAB PO SCH (09:30)
[2021-10-06] MEDS: APIXABAN 2.5 MG TABLET PO SCH ×2 (09:30→21:42)
[2021-10-06] MEDS: PIPERACILLIN-TAZOBACTAM 3.375 GM in SODIUM CHLORIDE 0.9% 100 ML IVPB SCH ×4 (09:30→17:04)
--- NOTE | 2021-10-06 11:32 | P.PN ---
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 On today's evaluation that is 10/05/2021, the patient denies having any fever or chills, patient still slightly lethargic but arousable and denies any chest pain did have a cough but not at the bedside no vomiting or diarrhea has been reported Objective - Vital Signs Vital signs: Vital Signs Temp 98.5 F 10/05/21 08:00 Pulse 80 10/05/21 08:00 Resp 16 10/05/21 08:00 BP 115/56 10/05/21 08:00 Pulse Ox 97 10/05/21 08:00 FiO2 Intake & Output 10/04/21 10/05/21 10/05/21 18:59 06:59 18:59 Intake Total 1000 Output Total 800 500 200 Balance -800 500 -200 Weight 60 kg 60 kg Intake: Intake, IV Titration 1000 Amount Piperacillin-Tazobactam 3 100 .375 gm In Sodium Chloride 0.9% 100 ml @ 25 mls/hr IVPB Q8HR [facility] Rx# :[id number] Sodium Chloride 0.9% 1, 900 000 ml @ 100 mls/hr IV . Q10H [facility] Rx#:[id number] Output: Urine 800 500 200 Other: Voiding Method Indwelling Catheter Indwelling Catheter Indwelling Catheter - Exam GENERAL DESCRIPTION: An elderly male lying in bed in no distress RESPIRATORY SYSTEM: Unlabored breathing , decreased breath sounds at bases HEART: S1 S2 regular rate and rhythm , ABDOMEN: Soft , no tenderness EXTREMITIES: No edema feet - Labs CBC & Chem 7: 10/06/21 08:01 10/06/21 08:01 Labs: Abnormal Lab Results - Last 24 Hours (Table) 10/05/21 10/05/21 10/05/21 Range/Units 08:30 08:30 11:17 RBC 2.15 L (4.30-5.90) m/uL Hgb 6.7 L* (13.0-17.5) gm/dL Hct 21.6 L (39.0-53.0) % MCV 100.5 H (80.0-100.0) fL MCHC 30.9 L (31.0-37.0) g/dL Lymphocytes # 0.3 L (1.0-4.8) k/uL Sodium 148 H (137-145) mmol/L Chloride 123 H (98-107) mmol/L BUN 53 H (9-20) mg/dL Glucose 116 H (74-99) mg/dL Calcium 7.1 L (8.4-10.2) mg/dL Magnesium 2.4 H (1.6-2.3) mg/dL C-Reactive Protein 6.6 H (<1.0) mg/dL Microbiology - Last 24 Hours (Table) 10/03/21 22:35 Blood Culture Gram Stain - Preliminary Blood Blood Culture - Preliminary Coagulase Negative Staph 10/03/21 22:20 Blood Culture - Preliminary Blood No Growth after 24 hours 10/03/21 22:35 Blood Culture - Final Blood Assessment and Plan (1) Pneumonia Current Visit: Yes Status: Acute Code(s): J18.9 - PNEUMONIA, UNSPECIFIED ORGANISM SNOMED Code(s): 080519185 Plan: 1patient presented to hospital with weakness lethargy he did have a mild cough patient also have a elevated white count concerning for possible left lobe pneumonia possibly gram-negative versus aspiration will need to cover for the resistant gram-negative. 2patient did have some laceration to bilateral lower extremity but no evidence of any active cellulitis or wound infection. 3positive blood culture with gram-positive cocci likely coag-negative staph and skin contamination no need for vancomycin 4patient to continue with Zosyn Time with Patient: Less than 30
--- NOTE | 2021-10-06 11:33 | P.PN ---
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 On today's evaluation that is 10/06/2021, the patient remains to be afebrile, the patient is more awake and alert up in the chair, the patient is breathing comfortably on nasal cannula oxygen and denies any chest pain he did have occas ional cough no abdominal pain no diarrhea Objective - Vital Signs Vital signs: Vital Signs Temp 98.2 F 10/06/21 03:31 Pulse 72 10/06/21 03:31 Resp 14 10/06/21 03:31 BP 139/59 10/06/21 03:31 Pulse Ox 95 10/06/21 03:31 FiO2 Intake & Output 10/05/21 10/06/21 10/06/21 18:59 06:59 18:59 Intake Total 310 10 Output Total 200 500 Balance 110 -490 Weight 60 kg Intake: IV 10 Invasive Line 2 10 Blood Product 310 Rc As-1 Unit 310 [id number] Output: Urine 200 500 Other: Voiding Method Indwelling Catheter Indwelling Catheter # Bowel Movements 1 1 - Exam GENERAL DESCRIPTION: An elderly male lying in bed in no distress RESPIRATORY SYSTEM: Unlabored breathing , decreased breath sounds at bases HEART: S1 S2 regular rate and rhythm , ABDOMEN: Soft , no tenderness EXTREMITIES: Bilateral lower extremity laceration currently dressed no drainage on the dressing - Labs CBC & Chem 7: 10/06/21 08:01 10/06/21 08:01 Labs: Abnormal Lab Results - Last 24 Hours (Table) 10/05/21 10/05/21 10/05/21 Range/Units 08:30 11:17 11:17 RBC (4.30-5.90) m/uL Hgb (13.0-17.5) gm/dL Hct (39.0-53.0) % RDW (11.5-15.5) % Chloride (98-107) mmol/L Carbon Dioxide (22-30) mmol/L BUN (9-20) mg/dL Glucose (74-99) mg/dL Calcium (8.4-10.2) mg/dL Magnesium 2.4 H (1.6-2.3) mg/dL Total Bilirubin (0.2-1.3) mg/dL Total Protein (6.3-8.2) g/dL Albumin (3.5-5.0) g/dL Procalcitonin 0.11 H (0.02-0.09) ng/mL Crossmatch See Detail 10/06/21 10/06/21 Range/Units 08:01 08:01 RBC 2.61 L (4.30-5.90) m/uL Hgb 8.0 L (13.0-17.5) gm/dL Hct 25.8 L (39.0-53.0) % RDW 16.0 H (11.5-15.5) % Chloride 121 H (98-107) mmol/L Carbon Dioxide 21 L (22-30) mmol/L BUN 45 H (9-20) mg/dL Glucose 127 H (74-99) mg/dL Calcium 7.1 L (8.4-10.2) mg/dL Magnesium (1.6-2.3) mg/dL Total Bilirubin 1.4 H (0.2-1.3) mg/dL Total Protein 3.9 L (6.3-8.2) g/dL Albumin 2.1 L (3.5-5.0) g/dL Procalcitonin (0.02-0.09) ng/mL Crossmatch Microbiology - Last 24 Hours (Table) 10/03/21 22:35 Blood Culture Gram Stain - Final Blood Blood Culture - Final Coagulase Negative Staph 10/05/21 08:30 Blood Culture - Preliminary Blood No Growth after 24 hours 10/03/21 22:20 Blood Culture - Preliminary Blood No Growth after 48 hours Assessment and Plan (1) Pneumonia Current Visit: Yes Status: Acute Code(s): J18.9 - PNEUMONIA, UNSPECIFIED ORGANISM SNOMED Code(s): 985913617 Plan: 1patient presented to hospital with weakness lethargy he did have a mild cough patient also have a elevated white count concerning for possible left lobe pneumonia possibly gram-negative versus aspiration will need to cover for the resistant gram-negative. 2patient did have some laceration to bilateral lower extremity but no evidence of any active cellulitis or wound infection. 3positive blood culture has been finalized as coag-negative staph, repeat blood culture has been negative more likely skin contamination no need for vancomycin 4patient has shown clinical Improvement and will continue with Zosyn Time with Patient: Less than 30
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
[2021-10-06] MEDS: TAMSULOSIN 0.4 MG CAP.ER.24H PO SCH (17:04)
[2021-10-06] MEDS: SENNOSIDES-DOCUSATE SODIUM 1 EACH TAB PO SCH (21:42)
[2021-10-06] MEDS: MELATONIN 5 MG TABLET PO SCH (21:42)
[2021-10-07] MEDS: PIPERACILLIN-TAZOBACTAM 3.375 GM in SODIUM CHLORIDE 0.9% 100 ML IVPB SCH ×4 (00:21→23:51)
[2021-10-07] MEDS: DEXTROSE 5% IN WATER 1,000 ML IV SCH (05:09)
[2021-10-07] MEDS: PANTOPRAZOLE 40 MG TABLET PO SCH (06:30)
[2021-10-07] MEDS: CYANOCOBALAMIN 500 MCG TAB PO SCH (09:23)
[2021-10-07] MEDS: APIXABAN 2.5 MG TABLET PO SCH ×2 (09:24→20:23)
[2021-10-07] MEDS: SPIRONOLACTONE 25 MG TAB PO SCH (09:24)
[2021-10-07] MEDS: METOPROLOL TARTRATE 12.5 MG TAB PO SCH ×2 (09:25→20:24)
[2021-10-07] MEDS: MUPIROCIN 2% OINT 22 GM TUBE TOPICAL SCH ×2 (10:40→23:50)
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
--- NOTE | 2021-10-07 12:34 | P.CONS ---
History of Present Illness - Reason for Consult Consult date: 10/07/21 wound care - History of Present Illness This is an 86-year-old male patient with past medical history of paroxysmal atrial fibrillation on eliquis, tachybradycardia syndrome status post pacemaker, hypertension, urinary retention, patient was recently hospitalized for an extended period regarding A. fib with RVR, lower extremity and cellulitis and metabolic encephalopathy. Unfortunately patient had a fall while hospitalized and sustained a right femur fracture and a right humerus fracture status post IM nail of the right hip on 09/28. Patient was stabilized and discharged to [facility] on Sunday for subacute rehab. Patient is being seen on for nonhealing ulcerations to bilateral posterior portion of lower extremities and the coccyx. Family states that the ulcerations have been there since his last hospitaliza tion. Patient has a stage II pressure ulcer to the coccyx with fat layer exposure and slough present. Patient has multiple lower extremity ulcerations are Limited to skin breakdown. Minimal granulation is noted with slough. Review Of Systems: Constitutional: No fever, no chills, no night sweats. No weight change. No weakness, fatigue or lethargy. No daytime sleepiness. Integumentary:reports wounds, no lesions. No rash or pruritus. No unusual bruising. No change in hair or nails. Physical exam: General Appearance: Alert, cooperative, no distress, appears stated age. Skin: See HPI all other Skin color, texture, tugor normal, no rashes or lesions. Neurologic: Alert oriented x3 Assessment: 1. Stage II pressure ulcers sacrum 2. Nonhealing ulceration of right lower extremity 3. Nonhealing ulceration of left lower extremity Plan: 1. Apply honey gel and sacral border foam to the sacral ulceration. Apply honey gel dry gauze rolled gauze and secure with paper tape to bilateral lower extremity ulcerations. Change Sunday. Patient would benefit from continued advance wound care. He can be seen by Dr. Cruz in [facility] if family is agreeable. Thank you for the consultation any questions please contact the wound care center DNP note has been reviewed and discussed with Dr. Ruano and the impression and plan of care has been directed as dictated. Past Medical History Past Medical History: Hypertension Additional Past Medical History / Comment(s): Pacemaker placement 09/20/21, fall 09/27/21, History of Any Multi-Drug Resistant Organisms: None Reported Past Surgical History: Hernia Repair Additional Past Surgical History / Comment(s): bilateral cataract surgery, hip fracture with pin placement 09/28/21 Past Anesthesia/Blood Transfusion Reactions: No Reported Reaction Type of Cardiac Device: Permanent Pacemaker Device Placement Date:: 09/20/21 Past Psychological History: No Psychological Hx Reported Smoking Status: Former smoker Past Alcohol Use History: None Reported Past Drug Use History: None Reported - Past Family History Father Additional Family Medical History / Comment(s): Father had several health problems but pt's son unable to recall types. Mother Additional Family Medical History / Comment(s): Pt's mother had heart issues. Medications and Allergies Home Medications Medication Instructions Recorded Confirmed Type Mupirocin 2% Oint [Bactroban 2% 1 applic TOPICAL BID 09/17/21 10/03/21 History Oint] Spironolactone 12.5 mg PO DAILY@0800 09/17/21 10/03/21 History Acetaminophen [Tylenol Arthritis] 650 mg PO Q4H PRN 10/03/21 10/03/21 History Acetaminophen-Codeine 300-30mg 1 tab PO Q6HR PRN 10/03/21 10/03/21 History [Tylenol w/codeine #3] Apixaban [Eliquis] 2.5 mg PO BID@0800,1700 10/03/21 10/03/21 History Cyanocobalamin [Vitamin B-12] 1,000 mcg PO DAILY@0800 10/03/21 10/03/21 History Ensure 1 can PO TID@0800,1200,1700 10/03/21 10/03/21 History Magnesium Hydroxide [Milk of 2,400 mg PO DAILY PRN 10/03/21 10/03/21 History Magnesia] Melatonin 10 mg PO HS@199910/03/21 10/03/21 History Metoprolol Tartrate [Lopressor] 12.5 mg PO BID@0800,1700 10/03/21 10/03/21 History Na Phos,M-B/Na Phos,Di-Ba [Fleet 133 ml RECTAL DAILY PRN 10/03/21 10/03/21 History Adult] Sennosides-Docusate Sodium 2 tab PO HS@209910/03/21 10/03/21 History [Senokot-S] Tamsulosin [Flomax] 0.4 mg PO DAILY@1700 10/03/21 10/03/21 History bisacodyL [Dulcolax] 10 mg RECTAL DAILY PRN 10/03/21 10/03/21 History fluPHENAZine [Prolixin] 0.5 mg PO BID@0800,1700 10/03/21 10/03/21 History Allergies Allergy/AdvReac Type Severity Reaction Status Date / Time No Known Allergies Allergy Verified 10/03/21 19:32 Physical Exam Vitals: Vital Signs Temp Pulse Resp BP Pulse Ox 10/07/21 09:12 97.9 F 56 L 22 113/46 95 10/07/21 04:53 98.4 F 68 14 116/54 95 10/07/21 02:00 14 10/07/21 00:00 98.4 F 62 14 104/60 96 10/06/21 20:00 98.8 F 69 14 106/63 97 10/06/21 16:17 98.0 F 64 18 110/62 96 10/06/21 15:06 16 Intake and Output 10/06/21 10/07/21 10/07/21 22:59 06:59 14:59 Intake Total 170 25 Output Total 300 300 Balance -130 -300 25 Intake: IV 10 Invasive Line 2 10 Intake, IV Titration 25 Amount Piperacillin-Tazobactam 3 25 .375 gm In Sodium Chloride 0.9% 100 ml @ 25 mls/hr IVPB Q8HR [facility] Rx# :[id number] Oral 160 Output: Urine 300 300 Other: Voiding Method Indwelling Catheter Indwelling Catheter Indwelling Catheter # Bowel Movements 2 1 Results CBC & Chem 7: 10/06/21 08:01 10/06/21 08:01 Labs: Microbiology - Last 24 Hours (Table) 10/05/21 09:12 Blood Culture - Preliminary Blood No Growth after 48 hours 10/05/21 08:30 Blood Culture - Preliminary Blood No Growth after 48 hours 10/03/21 22:20 Blood Culture - Preliminary Blood No Growth after 72 hours 10/03/21 22:35 Blood Culture Gram Stain - Final Blood Blood Culture - Final Coagulase Negative Staph Assessment and Plan (1) Stage II pressure ulcer of sacral region Current Visit: Yes Status: Acute Code(s): L89.152 - PRESSURE ULCER OF SACRAL REGION, STAGE 2 SNOMED Code(s): 18078649163580565 (2) Non-pressure chronic ulcer of other part of left lower leg with fat layer exposed Current Visit: Yes Status: Acute Code(s): L97.822 - NON-PRS CHRONIC ULCER OTH PRT L LOW LEG W FAT LAYER EXPOSED SNOMED Code(s): 25670455 (3) Non-pressure chronic ulcer of other 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
--- NOTE | 2021-10-07 12:43 | P.PN ---
Subjective Progress Note Date: 10/06/21 Principal diagnosis: S/P Right IM nail Patient is 86 yo male seen again at bedside regarding his right hip. Family is at bedside and provide history as patient is unable due to mental status. No new complaints. There was some concern about drainage at surgical site. Objective - Vital Signs Vital signs: Vital Signs Temp 98.2 F 10/06/21 03:31 Pulse 72 10/06/21 03:31 Resp 14 10/06/21 03:31 BP 139/59 10/06/21 03:31 Pulse Ox 95 10/06/21 03:31 FiO2 Intake & Output 10/05/21 10/06/21 10/06/21 18:59 06:59 18:59 Intake Total 310 10 Output Total 200 500 Balance 110 -490 Weight 60 kg Intake: IV 10 Invasive Line 2 10 Blood Product 310 Rc As-1 Unit 310 [id number] Output: Urine 200 500 Other: Voiding Method Indwelling Catheter Indwelling Catheter # Bowel Movements 1 1 - Exam Inspection of surgical wounds shows dedrick in place. No active bleeding or drainage. No purulence. No erythema, no dehiscence - Constitutional General appearance: Present: no acute distress - Labs CBC & Chem 7: 10/06/21 08:01 10/06/21 08:01 Labs: Abnormal Lab Results - Last 24 Hours (Table) 10/05/21 10/05/21 10/06/21 Range/Units 08:30 11:17 08:01 RBC (4.30-5.90) m/uL Hgb (13.0-17.5) gm/dL Hct (39.0-53.0) % RDW (11.5-15.5) % Chloride 121 H (98-107) mmol/L Carbon Dioxide 21 L (22-30) mmol/L BUN 45 H (9-20) mg/dL Glucose 127 H (74-99) mg/dL Calcium 7.1 L (8.4-10.2) mg/dL Total Bilirubin 1.4 H (0.2-1.3) mg/dL Total Protein 3.9 L (6.3-8.2) g/dL Albumin 2.1 L (3.5-5.0) g/dL Procalcitonin 0.11 H (0.02-0.09) ng/mL Crossmatch See Detail 10/06/21 Range/Units 08:01 RBC 2.61 L (4.30-5.90) m/uL Hgb 8.0 L (13.0-17.5) gm/dL Hct 25.8 L (39.0-53.0) % RDW 16.0 H (11.5-15.5) % Chloride (98-107) mmol/L Carbon Dioxide (22-30) mmol/L BUN (9-20) mg/dL Glucose (74-99) mg/dL Calcium (8.4-10.2) mg/dL Total Bilirubin (0.2-1.3) mg/dL Total Protein (6.3-8.2) g/dL Albumin (3.5-5.0) g/dL Procalcitonin (0.02-0.09) ng/mL Crossmatch Microbiology - Last 24 Hours (Table) 10/05/21 09:12 Blood Culture - Preliminary Blood No Growth after 24 hours 10/03/21 22:35 Blood Culture Gram Stain - Final Blood Blood Culture - Final Coagulase Negative Staph 10/05/21 08:30 Blood Culture - Preliminary Blood No Growth after 24 hours 10/03/21 22:20 Blood Culture - Preliminary Blood No Growth after 48 hours Assessment and Plan (1) Closed intertrochanteric fracture of right hip Narrative/Plan: Patient discussed with Dr. Melendez. We Don't believe his hip is source of infection.. Hip xray is okay. Wounds look benign. Continue wound care. Dedrick out at PO day 12. F/U with Dr. Brennan as outpatient Current Visit: No Status: Acute Code(s): S72.141A - DISPLACED INTERTROCHANTERIC FRACTURE OF RIGHT FEMUR, INIT SNOMED Code(s): 09454518 Time with Patient: Less than 30
[2021-10-07] MEDS: TAMSULOSIN 0.4 MG CAP.ER.24H PO SCH (16:33)
--- NOTE | 2021-10-07 16:46 | P.PN ---
Subjective Progress Note Date: 10/07/21 Principal diagnosis: Pneumonia and bacteremia Patient is 86-year-old male with a recent admission Hospital symptomatic bradycardia arrhythmia status post pacemaker placement subsequently did have a follow-up with the right femoral and right humerus fracture status post IM nailing of right hip fracture subsequently [facility] the patient was sent back to the hospital concerning for pneumonia. On today's evaluation that is 10/07/2021, the patient continues to be afebrile, the patient is up in the chair and more weak, the patient is breathing comfortably on nasal cannula oxygen , patient did not provide any history, per Family did have occasional cough and did have a low appetite no vomiting or diarrhea has been reported Objective - Vital Signs Vital signs: Vital Signs Temp 97.9 F 10/07/21 09:12 Pulse 56 L 10/07/21 09:12 Resp 22 10/07/21 09:12 BP 113/46 10/07/21 09:12 Pulse Ox 95 10/07/21 09:12 FiO2 Intake & Output 10/06/21 10/07/21 10/07/21 18:59 06:59 18:59 Intake Total 180 25 Output Total 300 300 Balance -120 -300 25 Weight 60 kg Intake: IV 20 Invasive Line 2 20 Intake, IV Titration 25 Amount Piperacillin-Tazobactam 3 25 .375 gm In Sodium Chloride 0.9% 100 ml @ 25 mls/hr IVPB Q8HR [facility] Rx# :[id number] Oral 160 Output: Urine 300 300 Other: Voiding Method Indwelling Catheter Indwelling Catheter Indwelling Catheter # Bowel Movements 1 2 1 - Exam GENERAL DESCRIPTION: An elderly male lying in bed in no distress RESPIRATORY SYSTEM: Unlabored breathing , decreased breath sounds at bases HEART: S1 S2 regular rate and rhythm , ABDOMEN: Soft , no tenderness EXTREMITIES: Bilateral lower extremity laceration currently dressed no drainage on the dressing - Labs CBC & Chem 7: 10/06/21 08:01 10/06/21 08:01 Labs: Microbiology - Last 24 Hours (Table) 10/05/21 09:12 Blood Culture - Preliminary Blood No Growth after 48 hours 10/05/21 08:30 Blood Culture - Preliminary Blood No Growth after 48 hours 10/03/21 22:20 Blood Culture - Preliminary Blood No Growth after 72 hours 10/03/21 22:35 Blood Culture Gram Stain - Final Blood Blood Culture - Final Coagulase Negative Staph Assessment and Plan (1) Pneumonia Current Visit: Yes Status: Acute Code(s): J18.9 - PNEUMONIA, UNSPECIFIED ORGANISM SNOMED Code(s): 396913091 Plan: 1patient presented to hospital with weakness lethargy he did have a mild cough patient also have a elevated white count concerning for possible left lobe pneumonia possibly gram-negative versus aspiration will need to cover for the resistant gram-negative. 2patient did have some laceration to bilateral lower extremity but no evidence of any active cellulitis or wound infection. 3positive blood culture has been finalized as coag-negative staph, repeat blood culture has been negative more likely skin contamination no need for vancomycin 4patient slowly clinically improving and will continue with Zosyn along with aspiration precautions Family the bedside questions were answered Time with Patient: Less than 30
[2021-10-07] MEDS: SENNOSIDES-DOCUSATE SODIUM 1 EACH TAB PO SCH (20:20)
[2021-10-07] MEDS: MELATONIN 5 MG TABLET PO SCH (20:24)
[2021-10-07] MEDS: MIRTAZAPINE 15 MG TAB PO SCH (20:24)
[2021-10-08] MEDS: DEXTROSE 5% IN WATER 1,000 ML IV SCH ×2 (00:18→16:50)
[2021-10-08] MEDS: PANTOPRAZOLE 40 MG TABLET PO SCH (06:37)
[2021-10-08 08:01] LABS: HCT 30.5 % (39.0-53.0); HGB 9.4 gm/dL (13.0-17.5); Hypochromasia Marked; MCH 30.6 pg (25.0-35.0); MCHC 30.8 g/dL (31.0-37.0); MCV 99.3 fL (80.0-100.0); Macrocytosis Slight; Mean Platelet Volume 7.4; Platelet Count 395 k/uL (150-450); RBC 3.08 m/uL (4.30-5.90); RDW 14.9 % (11.5-15.5)
[2021-10-08 08:06] LABS: Albumin 2.1 g/dL (3.5-5.0); Calcium 7.1 mg/dL (8.4-10.2); Potassium 3.6 mmol/L (3.5-5.1); Total Bilirubin 1.4 mg/dL (0.2-1.3)
[2021-10-08] MEDS: PIPERACILLIN-TAZOBACTAM 3.375 GM in SODIUM CHLORIDE 0.9% 100 ML IVPB SCH ×3 (09:33→23:57)
[2021-10-08] MEDS: METOPROLOL TARTRATE 12.5 MG TAB PO SCH ×2 (09:33→20:24)
[2021-10-08] MEDS: SPIRONOLACTONE 25 MG TAB PO SCH (09:33)
[2021-10-08] MEDS: APIXABAN 2.5 MG TABLET PO SCH ×2 (09:33→20:23)
[2021-10-08] MEDS: CYANOCOBALAMIN 500 MCG TAB PO SCH (09:33)
[2021-10-08] MEDS: MUPIROCIN 2% OINT 22 GM TUBE TOPICAL SCH ×2 (09:37→20:24)
--- NOTE | 2021-10-08 11:42 | P.PN ---
Subjective Progress Note Date: 10/08/21 Principal diagnosis: Pneumonia Patient continued to be hemodynamically stable still having pain with movement and staff at the bedside Objective - Vital Signs Vital signs: Vital Signs Temp 98.0 F 10/08/21 08:00 Pulse 60 10/08/21 08:00 Resp 16 10/08/21 08:00 BP 98/63 10/08/21 08:00 Pulse Ox 98 10/08/21 08:00 FiO2 Intake & Output 10/07/21 10/08/21 10/08/21 18:59 06:59 18:59 Intake Total 589 420 Output Total 1200 675 300 Balance -611 675 120 Weight 60 kg Intake: Intake, IV Titration 50 Amount Piperacillin-Tazobactam 3 50 .375 gm In Sodium Chloride 0.9% 100 ml @ 25 mls/hr IVPB Q8HR [facility] Rx# :[id number] Oral 539 420 Output: Urine 1200 675 300 Other: Voiding Method Indwelling Catheter Indwelling Catheter Indwelling Catheter # Bowel Movements 4 1 1 - Exam Gen: This is an 86-year-old male resting in bed and appears to be comfortable. HEENT: Head is atraumatic, normocephalic. Pupils equal, round. Sclerae is anicteric. NECK: Supple. No JVD. No lymphadenopathy. No thyromegaly. LUNGS: Clear to auscultation. No wheezes or rhonchi. No intercostal retractions. HEART: Irregular rate and rhythm. No murmur. Pacemaker to the left anterior chest wall. ABDOMEN: Soft. Bowel sounds are present. No masses. No tenderness. Marmolejo catheter. EXTREMITIES: No pedal edema. No calf tenderness. Right hip wounds have dedrick in place edges are well approximated, no erythema. NEUROLOGICAL: Patient is awake to verbal stimuli, oriented to person, unable to follow commands appropriately due to significant confusion. - Labs CBC & Chem 7: 10/08/21 07:44 10/08/21 07:44 Labs: Abnormal Lab Results - Last 24 Hours (Table) 10/08/21 10/08/21 Range/Units 07:44 07:44 RBC 3.08 L (4.30-5.90) m/uL Hgb 9.4 L (13.0-17.5) gm/dL Hct 30.5 L (39.0-53.0) % MCHC 30.8 L (31.0-37.0) g/dL Chloride 114 H (98-107) mmol/L Carbon Dioxide 21 L (22-30) mmol/L BUN 28 H (9-20) mg/dL Glucose 108 H (74-99) mg/dL Calcium 7.1 L (8.4-10.2) mg/dL Total Bilirubin 1.4 H (0.2-1.3) mg/dL Total Protein 4.0 L (6.3-8.2) g/dL Albumin 2.1 L (3.5-5.0) g/dL Microbiology - Last 24 Hours (Table) 10/05/21 08:30 Blood Culture - Preliminary Blood No Growth after 72 hours 10/03/21 22:20 Blood Culture - Preliminary Blood No Growth after 96 hours 10/05/21 09:12 Blood Culture - Preliminary Blood No Growth after 48 hours Assessment and Plan Assessment: 1. Pneumonia with recent sepsis. 2. Severe protein calorie malnutrition. 3. Dysphagia with increased risk of aspiration. 4. Severe debility and deconditioning. 5. Encephalopathy, multifactorial on baseline dementia. 6. Right femur fracture. 7. Paroxysmal atrial fibrillation. 8. Urinary retention with Marmolejo catheter in place area 9. Severe debility and deconditioning. 10. And shockable pain. 11. Hypertension. Patient currently seems to be uncomfortable when changing in bed. Wound investigated and seems to be with bruising but without obvious drainage or bleeding. Patient with poor prognosis overall and that was discussed with his son at the bedside nursing staff mentioned the possibility of utilizing PEG tube and son was again sent and he would like to continue feeding his. Father. Patient will be on pain management but we will pay special attention to his mental status. We will continue turning patients in bed every 2 hours continue with aggressive wound care and continue with Marmolejo catheter care.
[2021-10-08] MEDS: TAMSULOSIN 0.4 MG CAP.ER.24H PO SCH (16:48)
[2021-10-08] MEDS: MIRTAZAPINE 15 MG TAB PO SCH (20:24)
[2021-10-08] MEDS: MELATONIN 5 MG TABLET PO SCH (20:24)
[2021-10-08] MEDS: SENNOSIDES-DOCUSATE SODIUM 1 EACH TAB PO SCH (20:24)
--- NOTE | 2021-10-09 01:17 | P.PN ---
Subjective Progress Note Date: 10/08/21 Principal diagnosis: Pneumonia and bacteremia Patient is 86-year-old male with a recent admission Hospital symptomatic bradycardia arrhythmia status post pacemaker placement subsequently did have a follow-up with the right femoral and right humerus fracture status post IM nailing of right hip fracture subsequently transferred to the residential for rehabilitation the patient was sent back to the hospital concerning for pneumonia. On today's evaluation that is 10/08/2021, the patient remains to be afebrile, the patient is breathing comfortably on nasal cannula oxygen , patient did not provide a reliable history, per daughter, the patient did have occasional cough and did have a low appetite no vomiting or diarrhea has been reported Objective - Vital Signs Vital signs: Vital Signs Temp 98.0 F 10/08/21 08:00 Pulse 60 10/08/21 08:00 Resp 16 10/08/21 08:00 BP 98/63 10/08/21 08:00 Pulse Ox 98 10/08/21 08:00 FiO2 Intake & Output 10/07/21 10/08/21 10/08/21 18:59 06:59 18:59 Intake Total 589 420 Output Total 1200 675 300 Balance -611 -675 120 Weight 60 kg Intake: Intake, IV Titration 50 Amount Piperacillin-Tazobactam 3 50 .375 gm In Sodium Chloride 0.9% 100 ml @ 25 mls/hr IVPB Q8HR [facility] Rx# :[id number] Oral 539 420 Output: Urine 1200 675 300 Other: Voiding Method Indwelling Catheter Indwelling Catheter Indwelling Catheter # Bowel Movements 4 1 1 - Exam GENERAL DESCRIPTION: An elderly male lying in bed in no distress RESPIRATORY SYSTEM: Unlabored breathing , decreased breath sounds at bases HEART: S1 S2 regular rate and rhythm , ABDOMEN: Soft , no tenderness EXTREMITIES: Bilateral lower extremity laceration currently dressed no drainage on the dressing - Labs CBC & Chem 7: 10/08/21 07:44 10/08/21 07:44 Labs: Abnormal Lab Results - Last 24 Hours (Table) 10/08/21 10/08/21 Range/Units 07:44 07:44 RBC 3.08 L (4.30-5.90) m/uL Hgb 9.4 L (13.0-17.5) gm/dL Hct 30.5 L (39.0-53.0) % MCHC 30.8 L (31.0-37.0) g/dL Chloride 114 H (98-107) mmol/L Carbon Dioxide 21 L (22-30) mmol/L BUN 28 H (9-20) mg/dL Glucose 108 H (74-99) mg/dL Calcium 7.1 L (8.4-10.2) mg/dL Total Bilirubin 1.4 H (0.2-1.3) mg/dL Total Protein 4.0 L (6.3-8.2) g/dL Albumin 2.1 L (3.5-5.0) g/dL Microbiology - Last 24 Hours (Table) 10/05/21 08:30 Blood Culture - Preliminary Blood No Growth after 72 hours 10/03/21 22:20 Blood Culture - Preliminary Blood No Growth after 96 hours 10/05/21 09:12 Blood Culture - Preliminary Blood No Growth after 48 hours Assessment and Plan (1) Pneumonia Current Visit: Yes Status: Acute Code(s): J18.9 - PNEUMONIA, UNSPECIFIED ORGANISM SNOMED Code(s): 327483159 Plan: 1patient presented to hospital with weakness lethargy he did have a mild cough patient also have a elevated white count concerning for possible left lobe pneumonia possibly gram-negative versus aspiration will need to cover for the resistant gram-negative. 2patient did have some laceration to bilateral lower extremity but no evidence of any active cellulitis or wound infection. 3positive blood culture has been finalized as coag-negative staph, repeat blood culture has been negative more likely skin contamination no need for vancomycin 4patient did have some clinical improvement and is currently being treated with Zosyn which will be continued along with aspiration precautions Time with Patient: Less than 30
[2021-10-09] MEDS: PANTOPRAZOLE 40 MG TABLET PO SCH (06:56)
--- NOTE | 2021-10-09 09:45 | P.PN ---
Subjective Progress Note Date: 10/09/21 Principal diagnosis: Pneumonia Patient's son brought in sure from [place] yesterday and given to his dad and he was able to drink at all. Nursing staff explained to him current risk of aspiration and dysphagia with regular liquids as patient currently on honey thick diet. Patient is still at baseline mental status confused arousable to voice command but does not follow commands seems to be lethargic and in pain Objective - Vital Signs Vital signs: Vital Signs Temp 98.2 F 10/09/21 03:50 Pulse 72 10/09/21 03:50 Resp 16 10/09/21 03:50 BP 96/54 10/09/21 03:50 Pulse Ox 97 10/09/21 03:50 FiO2 Intake & Output 10/08/21 10/09/21 10/09/21 18:59 06:59 18:59 Intake Total 540 Output Total 1125 750 Balance -585 -750 Intake: Oral 540 Output: Urine 1125 750 Other: Voiding Method Indwelling Catheter Indwelling Catheter # Bowel Movements 1 2 - Exam Gen: This is an 86-year-old male resting in bed and appears to be comfortable. HEENT: Head is atraumatic, normocephalic. Pupils equal, round. Sclerae is anicteric. NECK: Supple. No JVD. No lymphadenopathy. No thyromegaly. LUNGS: Clear to auscultation. No wheezes or rhonchi. No intercostal retractions. HEART: Irregular rate and rhythm. No murmur. Pacemaker to the left anterior chest wall. ABDOMEN: Soft. Bowel sounds are present. No masses. No tenderness. Marmolejo catheter. EXTREMITIES: No pedal edema. No calf tenderness. Right hip wounds have dedrick in place edges are well approximated, no erythema. NEUROLOGICAL: Patient is awake to verbal stimuli, oriented to person, unable to follow commands appropriately due to significant confusion. - Labs CBC & Chem 7: 10/08/21 07:44 10/08/21 07:44 Labs: Microbiology - Last 24 Hours (Table) 10/03/21 22:20 Blood Culture - Preliminary Blood No Growth after 120 hours 10/05/21 09:12 Blood Culture - Preliminary Blood No Growth after 72 hours 10/05/21 08:30 Blood Culture - Preliminary Blood No Growth after 72 hours Assessment and Plan Assessment: 1. Pneumonia with recent sepsis. 2. Severe protein calorie malnutrition. 3. Dysphagia with increased risk of aspiration. 4. Severe debility and deconditioning. 5. Encephalopathy, multifactorial on baseline dementia. 6. Right femur fracture. 7. Paroxysmal atrial fibrillation. 8. Urinary retention with Marmolejo catheter in place area 9. Severe debility and deconditioning. 10. And shockable pain. 11. Hypertension. Patient currently seems to be uncomfortable when changing in bed. Wound investigated and seems to be with bruising but without obvious drainage or bl eeding. Patient continued to be in pain, uncomfortable and general condition has been worsening slowly and gradually area I would like to consider hospice evaluation again and open discussion again with patient's son as patient is severely malnourished with dysphagia and family again still feeding complicated with his multiple medical problem and failure to thrive. Plan discussed with nursing staff at the bedside
[2021-10-09] MEDS: APIXABAN 2.5 MG TABLET PO SCH ×2 (09:54→21:05)
[2021-10-09] MEDS: METOPROLOL TARTRATE 12.5 MG TAB PO SCH ×2 (09:54→21:05)
[2021-10-09] MEDS: CYANOCOBALAMIN 500 MCG TAB PO SCH (09:54)
[2021-10-09] MEDS: SPIRONOLACTONE 25 MG TAB PO SCH (09:54)
[2021-10-09] MEDS: PIPERACILLIN-TAZOBACTAM 3.375 GM in SODIUM CHLORIDE 0.9% 100 ML IVPB SCH ×3 (09:54→23:15)
[2021-10-09] MEDS: MUPIROCIN 2% OINT 22 GM TUBE TOPICAL SCH ×2 (09:55→21:06)
[2021-10-09] MEDS: DEXTROSE 5% IN WATER 1,000 ML IV SCH (15:47)
[2021-10-09] MEDS: TAMSULOSIN 0.4 MG CAP.ER.24H PO SCH (17:33)
[2021-10-09] MEDS: MELATONIN 5 MG TABLET PO SCH (21:05)
[2021-10-09] MEDS: MIRTAZAPINE 15 MG TAB PO SCH (21:05)
[2021-10-09] MEDS: SENNOSIDES-DOCUSATE SODIUM 1 EACH TAB PO SCH (21:06)
[2021-10-10] MEDS: APIXABAN 2.5 MG TABLET PO SCH ×2 (09:24→21:35)
[2021-10-10] MEDS: PIPERACILLIN-TAZOBACTAM 3.375 GM in SODIUM CHLORIDE 0.9% 100 ML IVPB SCH ×3 (09:24→23:17)
[2021-10-10] MEDS: METOPROLOL TARTRATE 12.5 MG TAB PO SCH ×2 (09:25→21:38)
[2021-10-10] MEDS: PANTOPRAZOLE 40 MG TABLET PO SCH (09:25)
[2021-10-10] MEDS: SPIRONOLACTONE 25 MG TAB PO SCH (09:25)
[2021-10-10] MEDS: CYANOCOBALAMIN 500 MCG TAB PO SCH (09:25)
[2021-10-10] MEDS: MUPIROCIN 2% OINT 22 GM TUBE TOPICAL SCH ×2 (09:25→21:38)
--- NOTE | 2021-10-10 10:39 | P.PN ---
Subjective Progress Note Date: 10/09/21 Principal diagnosis: Pneumonia and bacteremia Patient is 86-year-old male with a recent admission Hospital symptomatic bradycardia arrhythmia status post pacemaker placement subsequently did have a follow-up with the right femoral and right humerus fracture status post IM nailing of right hip fracture subsequently transferred to the senior care for rehabilitation the patient was sent back to the hospital concerning for pneumonia. On today's evaluation that is 10/09/2021, the patient continues to be afebrile, the patient is breathing comfortably on nasal cannula oxygen , patient is not a good historian as did not answer any questions however the patient seemed to be doing well overall per the family the bedside did have occasional cough no choking with food and no diarrhea has been reported Objective - Vital Signs Vital signs: Vital Signs Temp 98.0 F 10/09/21 12:00 Pulse 59 L 10/09/21 14:00 Resp 16 10/09/21 14:00 BP 114/61 10/09/21 12:00 Pulse Ox 97 10/09/21 12:00 FiO2 Intake & Output 10/08/21 10/09/21 10/09/21 18:59 06:59 18:59 Intake Total 540 Output Total 1125 750 Balance -585 -750 Intake: Oral 540 Output: Urine 1125 750 Other: Voiding Method Indwelling Catheter Indwelling Catheter Indwelling Catheter # Bowel Movements 1 2 1 - Exam GENERAL DESCRIPTION: An elderly male lying in bed in no distress RESPIRATORY SYSTEM: Unlabored breathing , decreased breath sounds at bases HEART: S1 S2 regular rate and rhythm , ABDOMEN: Soft , no tenderness EXTREMITIES: Bilateral lower extremity laceration currently dressed no drainage on the dressing - Labs CBC & Chem 7: 10/08/21 07:44 10/08/21 07:44 Labs: Microbiology - Last 24 Hours (Table) 10/05/21 09:12 Blood Culture - Preliminary Blood No Growth after 96 hours 10/05/21 08:30 Blood Culture - Preliminary Blood No Growth after 96 hours 10/03/21 22:20 Blood Culture - Preliminary Blood No Growth after 120 hours Assessment and Plan (1) Pneumonia Current Visit: Yes Status: Acute Code(s): J18.9 - PNEUMONIA, UNSPECIFIED ORGANISM SNOMED Code(s): 908450300 Plan: 1patient presented to hospital with weakness lethargy he did have a mild cough patient also have a elevated white count concerning for possible left lobe pneumonia possibly gram-negative versus aspiration will need to cover for the resistant gram-negative. 2patient did have some laceration to bilateral lower extremity but no evidence of any active cellulitis or wound infection. 3positive blood culture has been finalized as coag-negative staph, repeat blood culture has been negative more likely skin contamination no need for vancomycin 4patient slowly clinically improving and we'll continue with Zosyn possible finishing therapy with oral Avelox Time with Patient: Less than 30
[2021-10-10] MEDS: DEXTROSE 5% IN WATER 1,000 ML IV SCH (11:39)
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
[2021-10-10] MEDS: TAMSULOSIN 0.4 MG CAP.ER.24H PO SCH (16:58)
[2021-10-10] MEDS: MELATONIN 5 MG TABLET PO SCH (21:35)
[2021-10-10] MEDS: SENNOSIDES-DOCUSATE SODIUM 1 EACH TAB PO SCH (21:36)
[2021-10-10] MEDS: MIRTAZAPINE 15 MG TAB PO SCH (21:36)
[2021-10-11 04:01] VITALS: TEMP 99.6
[2021-10-11] MEDS: APIXABAN 2.5 MG TABLET PO SCH (07:16)
[2021-10-11] MEDS: CYANOCOBALAMIN 500 MCG TAB PO SCH (07:16)
[2021-10-11] MEDS: PIPERACILLIN-TAZOBACTAM 3.375 GM in SODIUM CHLORIDE 0.9% 100 ML IVPB SCH (07:17)
[2021-10-11] MEDS: SPIRONOLACTONE 25 MG TAB PO SCH (07:17)
[2021-10-11] MEDS: METOPROLOL TARTRATE 12.5 MG TAB PO SCH (07:17)
[2021-10-11] MEDS: PANTOPRAZOLE 40 MG TABLET PO SCH (07:17)
[2021-10-11] MEDS: MUPIROCIN 2% OINT 22 GM TUBE TOPICAL SCH (07:18)
[2021-10-11 07:25] VITALS: BP 121/66; PULSE 79; RESP 13
--- NOTE | 2021-10-11 08:26 | P.PN ---
Subjective Progress Note Date: 10/10/21 Principal diagnosis: Pneumonia and bacteremia Patient is 86-year-old male with a recent admission Hospital symptomatic bradycardia arrhythmia status post pacemaker placement subsequently did have a follow-up with the right femoral and right humerus fracture status post IM nailing of right hip fracture subsequently transferred to the retirement for rehabilitation the patient was sent back to the hospital concerning for pneumonia. On today's evaluation that is 10/10/2021, the patient remains to be afebrile, the patient is breathing comfortably on nasal cannula oxygen , patient denied any chest pain shortness of breath, did have some cough bringing up any sputum no abdominal pain no diarrhea Objective - Vital Signs Vital signs: Vital Signs Temp 98.1 F 10/10/21 09:27 Pulse 73 10/10/21 10:28 Resp 16 10/10/21 09:27 BP 107/65 10/10/21 09:27 Pulse Ox 99 10/10/21 09:27 FiO2 Intake & Output 10/09/21 10/10/21 10/10/21 18:59 06:59 18:59 Output Total 400 600 Balance -400 -600 Weight 60 kg Output: Urine 400 600 Other: Voiding Method Indwelling Catheter Indwelling Catheter Indwelling Catheter # Bowel Movements 2 - Exam GENERAL DESCRIPTION: An elderly male lying in bed in no distress RESPIRATORY SYSTEM: Unlabored breathing , decreased breath sounds at bases HEART: S1 S2 regular rate and rhythm , ABDOMEN: Soft , no tenderness EXTREMITIES: Bilateral lower extremity laceration currently dressed no drainage on the dressing - Labs CBC & Chem 7: 10/08/21 07:44 10/08/21 07:44 Labs: Microbiology - Last 24 Hours (Table) 10/05/21 09:12 Blood Culture - Preliminary Blood No Growth after 120 hours 10/05/21 08:30 Blood Culture - Preliminary Blood No Growth after 120 hours 10/03/21 22:20 Blood Culture - Final Blood No Growth after 144 hours Assessment and Plan (1) Pneumonia Current Visit: Yes Status: Acute Code(s): J18.9 - PNEUMONIA, UNSPECIFIED ORGANISM SNOMED Code(s): 932552682 Plan: 1patient presented to hospital with weakness lethargy he did have a mild cough patient also have a elevated white count concerning for possible left lobe pneumonia possibly gram-negative versus aspiration will need to cover for the resistant gram-negative. 2patient did have some laceration to bilateral lower extremity but no evidence of any active cellulitis or wound infection. 3positive blood culture has been finalized as coag-negative staph, repeat blood culture has been negative more likely skin contamination no need for vancomycin 4patient did have some clinical improvement and currently being treated with Zosyn with a plan to finish therapy with oral Avelox Time with Patient: Less than 30
[2021-10-11] MEDS: DEXTROSE 5% IN WATER 1,000 ML IV SCH (09:10)
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
== END 2021-10-11 13:29 | disposition hospice, home (50) | DRG 871 ==
LOC: EC 19:28 → 3SCARD 10-04 01:07 → 4SSUR 10-10 13:34
PROVIDERS: ADMIT Internal Medicine Geriatric Medicine; ATTEND Internal Medicine Geriatric Medicine
PROC: 30233N1 Transfusion of Nonautologous Red Blood Cells into Peripheral Vein, Percutaneous Approach (ICD-10-PCS; principal; 2021-10-05)
DX: A41.9 Sepsis, unspecified organism (principal); E43 Unspecified severe protein-calorie malnutrition; G93.41 Metabolic encephalopathy; J18.9 Pneumonia, unspecified organism; E87.2 Acidosis; J98.11 Atelectasis; L97.812 Non-pressure chronic ulcer of other part of right lower leg with fat layer exposed; L97.822 Non-pressure chronic ulcer of other part of left lower leg with fat layer exposed; Z68.21 Body mass index [BMI] 21.0-21.9, adult; T17.990A Other foreign object in respiratory tract, part unspecified in causing asphyxiation, initial encounter; F03.90 Unspecified dementia, unspecified severity, without behavioral disturbance, psychotic disturbance, mood disturbance, and anxiety; I10 Essential (primary) hypertension; D64.9 Anemia, unspecified; I48.0 Paroxysmal atrial fibrillation; L89.152 Pressure ulcer of sacral region, stage 2; R33.9 Retention of urine, unspecified; R13.10 Dysphagia, unspecified; R62.7 Adult failure to thrive; R65.20 Severe sepsis without septic shock; S72.141D Displaced intertrochanteric fracture of right femur, subsequent encounter for closed fracture with routine healing; S42.201D Unspecified fracture of upper end of right humerus, subsequent encounter for fracture with routine healing; W19.XXXD Unspecified fall, subsequent encounter; Z51.5 Encounter for palliative care; Z66 Do not resuscitate; Z79.01 Long term (current) use of anticoagulants; E86.0 Dehydration; R19.7 Diarrhea, unspecified; R77.8 Other specified abnormalities of plasma proteins; Z79.899 Other long term (current) drug therapy; Z87.891 Personal history of nicotine dependence; Z95.0 Presence of cardiac pacemaker
CPT/HCPCS: 36415; 71045; 71046; 73501; 80048; 80053; 81001; 83605; 83735; 84145; 84484; 85025; 85027; 85610; 85730; 86140; 86850; 86900; 86901; 86920; 87040; 87324; 93005; 94760; 96365; 96366; 96372; 96375; 99285